=== PATIENT | female | born 1985 | race Caucasian/White ===

== ENCOUNTER → 2023-07-02 09:34 | Outpatient (BNVA) | payer OTHER, SELFPAY | PROVIDERS: PCP Internal Medicine; Visit Provider Physician Assistant Surgical ==

== ENCOUNTER 2023-08-02 10:55 | Outpatient (AMB) | payer OTHER, SELFPAY ==
--- NOTE | 2023-08-02 11:00 | MHC.OFFVISWM ---
Intake VS Expanded 08/02/23 11:16 BP 128/68 Blood Pressure Location Rt brachial Blood Pressure Position Sitting Pulse 63 Pulse Source Pulse Oximeter Temp 97.3 F Temperature Source Temporal Artery Scan Pulse Oximetry 97 Oxygen Delivery Method Room Air Height 5 ft 2 in Weight 287 lb 12.8 oz BMI 52.6 Body Fat % 45.8 Body Fat Mass 131.8 Fat Free Mass 155.8 Visceral Fat Rating 16.8 Body Water % 38.8 Body Water Mass 111.6 Muscle Mass/Score 148.0 Basal Metabolic Rate/Score 2,224 Intake Visit Reasons: (OV) [employer]PER[employer]OR BMI 52.7 SWL Allergies No Known Allergies Allergy (Verified 08/02/23 11:10) HPI HPI Comments History of Present Illness Details This is a 37 year old woman who is s/p GBP by Dr Alvarez in 2013 t [facility] – [place]. Pre op weight about 309 lowest weight before at 18 months post p was 250 lbs. No nausea, emesis if eats too much, no abd pain or relfulx. Feels restriction. Has been seeing RD and trying to lose weight over last 6 months without weight loss. Diagnosed with hypoglycemia - has periods of sweat , dizzyness and tingling around mouth 2-3 ties per week - mostly after sugar or carbs. Wants help to loose weight.Her goal is to weight less than 200 lbs. She lives with her and 3 children She works at [employer] – [place], some remotely some days, 9am = 3pm, M- F. She wakes at: 6am, bed at 12 MN Wants to use intermittent fasting - 9:30 - 6:30 pm Breakfast: coffee at 9:30 with 1% Lactaid milk and 2 tsp sugar 10am - 2 hb eggs, 1 -2 slice turkey collier Lunch: 12 pm - yogurt with fruit on bottom. 2 pm - 1.5 cup salad and half can of tuna or equivalent amt of chicken 4pm - cottage cheese - 1/2 cup 1% Dinner: 6pm - 1/2 c rice and beans with 4 oz? chicken - uses small plate After dinner: nothing Other snacks: as above Liquids: stopped soda and juice/sweetened drink 10 months ago Alcohol intake: none, tobacco:none, marijuana: none Exercise: has gym membership but can't go to childcare. walks with kids and dog Last mammogram: not yet Last pap smear: up to date control method: BTL KWABENA:3 ESS:1 GERD:0 QOL:84 PFSH Surgical History H/O tubal ligation History of cholecystectomy H/O kidney removal Gastric bypass status for obesity Family History Mother Kidney failure Diabetes Hypertension Congestive heart failure Father Brain aneurysm AIDS Son Diabetes Son Asthma Daughter No problems noted. 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 Physical Exam Const General: cooperative, no acute distress and well developed Nutritional Appearance: obese Orientation/consciousness: patient oriented x3 HEENT Head: Yes normal to inspection Neck Neck: Yes normal visual inspection Thyroid: Thyroid normal Resp Effort & Inspection: normal respiratory effort Auscultation: clear to auscultation bilaterally Cardio Rate: regular rate Rhythm: regular rhythm Heart sounds: S1 normal heart sound present, S2 normal heart sound present and no murmurs GI Inspection: No distended, Yes obesity and Yes scar (welll healed laparoscopic scars, left nephrectomy scar) Palpation (GI): Soft to palpation, nontender and no guarding Skin General skin exam: no rashes or lesions noted and other (warm and dry) Wounds: no wounds Hair: normal Neuro General: patient oriented x3 Extrem General: Yes no pedal edema and Yes no calf tenderness Psych Attitude: cooperative Thought process: Normal thought process present Thought content: Normal thought content present Insight: Good insight present (Psych) Judgement: Good judgement present (Psych) Assessment & Plan Assessment & Plan (1) Morbid obesity: Code(s): E66.01 - Morbid (severe) obesity due to excess calories Plan: This is a 37 yo woman with morbid boestiy s/p GBP in 2013. She wants to loose weight and is open to revision bariatric surgery. Blood work, h pylori , CXR, ECG, Abd ULS and UGI have been ordered. She is being scheduled for RD and BH initial consultations. She will start SWL classes and watch at 3 classes before her next appt with Susan. Will get OR report from [facility]. 1. Adequate sleep of 7-8 hours per night discussed - 10:30 - 6 am 2. Healthy meal plan - All meals/MR's need to take 20 -30 minutes minutes to complete coffee with 1% lactaid only 10 am - protein shake with water or UAM 2 pm - protein shake with water or UAM 6 pm- dinner of 8 forks lean protein, 8 forks vegetable, 1/2 serving fruit 8pm- half bar prn Exercise - treadmill 2d/ week at speed 3.0, incline 1- 7- to burn 300 calories LS 2 mile videos 3 d/week - 300 caloreis - goal 2000 cla/week The importance of avoiding and breast feeding for at least 18 months after bariatric surgery was discussed in the information session and was reinforced today. Has BTL. Pt will purchase body composition analyzer (recommended list given to patient) and weight herself weekly. Next appt with me in 3 weeks. Text me with any questions and weekly weights. Patient is morbidly obese and is not considered stable at this time.?I spent a total of 60 minutes reviewing/updating records, examining the patient and counseling the patient on weight management as detailed above. (2) Gastric bypass status for obesity: Comment: 2013 Code(s): Z98.84 - Bariatric surgery status (3) H/O partial nephrectomy: Comment: 2014 Code(s): Z90.5 - Acquired absence of kidney Orders: Orders Insulin Today E66.01 - Morbid (severe) obesity due to excess calories, Z01.818 - Encounter for other preprocedural examination, Z98.84 - Bariatric surgery status Lipid Panel Today E66.01 - Morbid (severe) obesity due to excess calories, Z01.818 - Encounter for other preprocedural examination, Z98.84 - Bariatric surgery status Complete Blood Count Auto Diff Today E66.01 - Morbid (severe) obesity due to excess calories, Z01.818 - Encounter for other preprocedural examination, Z98.84 - Bariatric surgery status Vitamin B12 and Folate Today E66.01 - Morbid (severe) obesity due to excess calories, Z01.818 - Encounter for other preprocedural examination, Z98.84 - Bariatric surgery status Vitamin A Today E66.01 - Morbid (severe) obesity due to excess calories, Z01.818 - Encounter for other preprocedural examination, Z98.84 - Bariatric surgery status Ferritin Today E66.01 - Morbid (severe) obesity due to excess calories, Z01.818 - Encounter for other preprocedural examination, Z98.84 - Bariatric surgery status Vitamin D 25-OH Total Today E66.01 - Morbid (severe) obesity due to excess calories, Z01.818 - Encounter for other preprocedural examination, Z98.84 - Bariatric surgery status US abdomen comp w elastography Today E66.01 - Morbid (severe) obesity due to excess calories, Z01.818 - Encounter for other preprocedural examination, Z98.84 - Bariatric surgery status XR chest 2V Today E66.01 - Morbid (severe) obesity due to excess calories, Z01.818 - Encounter for other preprocedural examination, Z98.84 - Bariatric surgery status FL upper GI w air Today E66.01 - Morbid (severe) obesity due to excess calories, Z01.818 - Encounter for other preprocedural examination, Z98.84 - Bariatric surgery status IRON PROFILE Today E66.01 - Morbid (severe) obesity due to excess calories, Z01.818 - Encounter for other preprocedural examination, Z98.84 - Bariatric surgery status Zinc Today E66.01 - Morbid (severe) obesity due to excess calories, Z01.818 - Encounter for other preprocedural examination, Z98.84 - Bariatric surgery status Comprehensive Met. Panel Today E66.01 - Morbid (severe) obesity due to excess calories, Z01.818 - Encounter for other preprocedural examination, Z98.84 - Bariatric surgery status Vitamin B1 Today E66.01 - Morbid (severe) obesity due to excess calories, Z01.818 - Encounter for other preprocedural examination, Z98.84 - Bariatric surgery status C Reactive Protein Today E66.01 - Morbid (severe) obesity due to excess calories, Z01.818 - Encounter for other preprocedural examination, Z98.84 - Bariatric surgery status PTHI Today E66.01 - Morbid (severe) obesity due to excess calories, Z01.818 - Encounter for other preprocedural examination, Z98.84 - Bariatric surgery status TSH reflex Free T4 Today E66.01 - Morbid (severe) obesity due to excess calories, Z01.818 - Encounter for other preprocedural examination, Z98.84 - Bariatric surgery status H Pylori Breath Test Today E66.01 - Morbid (severe) obesity due to excess calories, Z01.818 - Encounter for other preprocedural examination, Z98.84 - Bariatric surgery status Hemoglobin A1c Today E66.01 - Morbid (severe) obesity due to excess calories, Z01.818 - Encounter for other preprocedural examination, Z98.84 - Bariatric surgery status ECG 12 lead EKG Today E66.01 - Morbid (severe) obesity due to excess calories, Z01.818 - Encounter for other preprocedural examination, Z98.84 - Bariatric surgery status Referrals Nutrition/Dietitian Referral E66.01 - Morbid (severe) obesity due to excess calories, Z01.818 - Encounter for other preprocedural examination, Z98.84 - Bariatric surgery status Behavioral Health Referral E66.01 - Morbid (severe) obesity due to excess calories, Z01.818 - Encounter for other preprocedural examination, Z98.84 - Bariatric surgery status Coding Level of Care Code New Pt Level 5 (80100) Diagnoses Morbid obesity E66.01 Gastric bypass status for obesity Z98.84 H/O partial nephrectomy Z90.5
[2023-08-02 11:16] VITALS: BP 128/68; PULSE 63; TEMP 36.3; O2SAT 97; BMI 52.6
== END 2023-08-02 12:07 | disposition home or self-care (01) ==
PROVIDERS: PCP Internal Medicine; Visit Provider Physician Assistant
DX: E66.01 Morbid (severe) obesity due to excess calories (principal); Z68.43 Body mass index [BMI] 50.0-59.9, adult; Z98.84 Bariatric surgery status; Z90.5 Acquired absence of kidney
CPT/HCPCS: 99205

== ENCOUNTER → 2023-08-02 10:55 | Outpatient (BNVA) | payer OTHER, SELFPAY | PROVIDERS: PCP Internal Medicine; Visit Provider Physician Assistant | DX: E66.01 Morbid (severe) obesity due to excess calories (principal); Z98.84 Bariatric surgery status; Z90.5 Acquired absence of kidney; Z68.43 Body mass index [BMI] 50.0-59.9, adult | CPT/HCPCS: 99202 ==

== ENCOUNTER 2023-08-07 09:41 | Outpatient (REF) | payer OTHER, SELFPAY ==
--- NOTE | ~2023-08-07 | XR_ITS ---
EXAMINATION: XR CHEST CLINICAL INFORMATION: Obesity COMPARISON: 01/24/2018 TECHNIQUE: 2 views of the chest were obtained. FINDINGS: No significant abnormality is noted involving the heart, lungs, mediastinum, bony thorax or soft tissues. XR/XR chest 2V IMPRESSION: Unremarkable examination, no interval change.
--- NOTE | 2023-08-07 10:15 | ECG_ITS ---
Test Reason : morbid obesity Blood Pressure : / mmHG Vent. Rate : 060 BPM Atrial Rate : 060 BPM P-R Int : 186 ms QRS Dur : 104 ms QT Int : 428 ms P-R-T Axes : 051 057 023 degrees QTc Int : 428 ms Normal sinus rhythm Normal ECG When compared with ECG of 24-JAN-2018 12:18, No significant change was found Referred By: Angeles Alvarez Electronically Signed By:JOHN SANON MD
[2023-08-07 10:42] LABS: MANUAL DIFF FLAG NO
[2023-08-07 11:33] LABS: Basophils Percent Auto 0.2 % (0-2); Eosinophils Absolute Auto 0.5 X10*3/uL (0.0-0.4); Eosinophils Percent Auto 5.9 % (0-4); Hematocrit 41.6 % (37.0-47.0); Hemoglobin 13.5 g/dl (12.0-16.0); Imm Gran Abs Auto 0.02 X10*3/uL (0.00-0.03); Imm Gran Pct Auto 0.2 % (0.0-0.4); Lymphocytes Absolute Auto 2.1 X10*3/uL (1.2-4.9); Mean Corpuscular HGB Conc 32.5 g/dl (31.0-35.0); Mean Corpuscular Hemoglobin 27.2 pg (27.0-33.0); Mean Corpuscular Volume 83.9 fL (80.0-98.0); Mean Platelet Volume 11.1 fL (9.4-12.3); Monocytes Absolute Auto 0.7 X10*3/uL (0.1-1.2); Monocytes Percent Auto 8.5 % (2-11); Neutrophils Absolute Auto 5.3 x10*3/uL (2.0-8.3); Neutrophils Percent Auto 61.2 % (45-73); Platelet Count 366 X10*3/uL (160-400); Red Blood Count 4.96 X10*6/uL (4.20-5.50); Red Cell Distribution Width 13.8 % (11.0-16.0); White Blood Count 8.7 X10*3/uL (4.8-10.8)
[2023-08-07 11:36] LABS: Estimated Average Glucose 100 mg/dL; Hemoglobin A1c % 5.1 % (<6.0)
[2023-08-07 12:14] LABS: Alanine Aminotransferase 21 U/L (0-31); Alkaline Phosphatase 97 U/L (39-117); Anion Gap 11 (12-20); Aspartate Amino Transferase 20 U/L (5-31); Bilirubin Total 0.5 mg/dL (0.0-1.0); Blood Urea Nitrogen 11 mg/dL (9-16); C Reactive Protein 0.75 mg/dL (< or = 0.50); Carbon Dioxide 22 mmol/L (22-29); Chloride 109 mmol/L (96-108); Cholesterol 146 mg/dL (<200); Estimated Glomerular Filt Rate > 60; Glucose Random 92 mg/dL (60-115); HDL Cholesterol 28 mg/dL (>40); Iron 87 mcg/dL (30-160); LDL Cholesterol Calculated 89 mg/dL (<100); Percent Iron Saturation 32 % (15-50); Sodium 138 mmol/L (135-145); Total Iron Binding Capacity 273 mcg/dL (228-428); Total Protein 8.1 g/dL (6.5-8.0); Triglycerides 148 mg/dL (<150); Unsaturated Iron Binding 186 ug/dL
[2023-08-07 12:36] LABS: Folate 9.4 ng/mL (> or = 4.0); Vitamin B12 689 pg/mL (200-900)
[2023-08-07 12:49] LABS: Ferritin 102 ng/mL (10-122); TSH reflex Free T4 1.27 uIU/mL (0.32-4.0); Vitamin D 25-OH Total 18.1 ng/mL (>30)
[2023-08-07 13:31] LABS: Insulin 31 uU/mL (2-29)
[2023-08-08 18:13] LABS: Calcium (PTHI) 9.3 mg/dL (8.6-10.2); PTHI 97 pg/mL (16-77)
[2023-08-10 17:14] LABS: Zinc 71 mcg/dL (60-130)
[2023-08-12 12:21] LABS: H Pylori Breath Test Negative (Negative)
[2023-08-13 11:20] LABS: Vitamin A 25 mcg/dL (38-98); Vitamin B1 10 nmol/L (8-30)
== END 2023-08-07 09:42 | disposition home or self-care (01) ==
LOC: HO.XRAY 09:41
PROVIDERS: PCP Internal Medicine; Visit Provider Physician Assistant
DX: Z01.818 Encounter for other preprocedural examination (principal); E66.01 Morbid (severe) obesity due to excess calories; Z98.84 Bariatric surgery status; Z11.0 Encounter for screening for intestinal infectious diseases
CPT/HCPCS: 36415; 71046; 80053; 80061; 82306; 82607; 82728; 82746; 83013; 83036; 83525; 83540; 83970; 84425; 84443; 84590; 84630; 85025; 86140; 93005; 99211

== ENCOUNTER 2023-08-29 10:07 | Outpatient (REF) | payer OTHER, SELFPAY ==
--- NOTE | ~2023-08-29 | US_ITS ---
EXAMINATION: US COMPLETE ABDOMEN WITH LIVER ELASTOGRAPHY CLINICAL INFORMATION: Morbid obesity. COMPARISON: CT scan dated August 29, 2018. TECHNIQUE: Real-time imaging of the abdominal viscera. Noninvasive ultrasound liver fibrosis assessment is performed using Anabel ElastPQ point quantification shear wave elastography (2D-SWE) with a C5-2 MHz transducer. Multiple elastography samples are obtained. FINDINGS: PANCREAS: Head and body appear unremarkable. Tail not visualized. ABDOMINAL AORTA: The proximal, middle, and distal aortic segments are normal in caliber. INFERIOR VENA CAVA: Visualized portions are normal. LIVER: The liver demonstrates normal size, contour and echogenicity. No focal lesion or intrahepatic biliary duct dilatation. The right lobe measures 16.3 cm in length. The left lobe measures 13.4 cm in length. Portal flow is towards the liver (hepatopetal). Shear wave liver elastography median stiffness is 1.27 m/s (reference: normal median stiffness is 1.3 m/s or less). IQR/median stiffness to assess sampling precision is 0.06 (reference: good quality data set is IQR/median stiffness of 0.15 or less). GALLBLADDER: Not visualized, consistent with prior surgical removal. COMMON BILE DUCT: Normal in caliber measuring 0.3 cm in diameter. RIGHT KIDNEY: No hydronephrosis. 2.0 cm benign right upper pole simple renal cysts for which no further dedicated follow up imaging is indicated. No renal calculi or suspicious focal parenchymal lesion identified. The kidney measures 10.9 cm in maximum dimension. LEFT KIDNEY: No hydronephrosis. No renal calculi or focal parenchymal lesion identified. The kidney measures 10.2 cm in maximum dimension. SPLEEN: The spleen measures 11.8 cm in maximum dimension. FREE FLUID: None. US/US abdomen comp w elastography IMPRESSION: Liver elastography: In the absence of other known clinical signs, measurements rule out compensated advanced chronic liver disease. If there are known clinical signs, further testing may be needed for confirmation. Otherwise unremarkable study. REFERENCE: Society of Radiologists in Ultrasound Liver Stiffness Thresholds (2020): LIVER STIFFNESS THRESHOLDS: *Liver Stiffness equal or less than 1.3 m/s: High probability of being normal. *Liver Stiffness less than 1.7 m/s: In the absence of other known clinical signs, rules out compensated advanced chronic liver disease. *Liver Stiffness 1.7-2.1 m/s: Suggestive of compensated advanced chronic liver disease but need further test for confirmation. *Liver Stiffness over 2.1 m/s: Rules in compensated advanced chronic liver disease. *Liver Stiffness over 2.4 m/s: Suggestive of clinically significant portal hypertension. QUALITY OF DATA SET: *IQR/Median value equal or less than 0.15 implies a quality data set. *IQR/Median value over 0.15 implies a poor quality data set. OTHER CONSIDERATIONS: The stage of liver fibrosis may be overestimated in the setting of acute hepatitis, liver inflammation, elevated liver function tests, hepatic vascular congestion, obstructive cholestasis, non-fasting state, and infiltrative diseases such as amyloidosis and lymphoma. In some patients with NAFLD, the liver stiffness thresholds for compensated advanced chronic liver disease may be lower. In causes other than viral hepatitis and NAFLD, liver stiffness thresholds are not well established.
== END 2023-08-29 10:08 | disposition home or self-care (01) ==
LOC: HO.US 10:07
PROVIDERS: PCP Internal Medicine; Visit Provider Physician Assistant
DX: Z01.818 Encounter for other preprocedural examination (principal); E66.01 Morbid (severe) obesity due to excess calories; Z98.84 Bariatric surgery status
CPT/HCPCS: 76705; 76981

== ENCOUNTER 2023-08-31 14:50 | Outpatient (AMB) | payer OTHER, SELFPAY ==
--- NOTE | 2023-08-31 14:20 | MHC.AMNUTRGE ---
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 Noted high insulin levels. and she states hypoglycemia in the past but now improved. Question if hyhpoglycemia due to undereating vs reactive hypo. Saw 2 Endocrinologists ([place] and [place]) Saw Marcy Jj RD. she has done a CGM trial with endo, unable to get it approved through insurance. Gets bored with food easily, I prefer to not eat . I don't like food 10am-6pm eating window Using premier protein powders 2 scoops with water but strongly dislikes it.Also continuing with 2 meals , protein and vegetables only Previous weight loss methods attempted s/p GBP by Dr Alvarez in 2013 t [facility]. Pre op weight about 309 lowest weight before at 18 months post p was 250 lbs. No nausea, emesis if eats too much, no abd pain or relfulx. Feels restriction. Has been seeing RD and trying to lose weight over last 6 months without weight loss. Diagnosed with hypoglycemia - has periods of sweat , dizzyness and tingling around mouth 2-3 ties per week - mostly after sugar or carbs. Wants help to loose weight. Her goal is to weight less than 200 lbs. Dietary counseling reduction Who buys your food self Who prepares/cooks your food self Meal frequency regular: breakfast (hardboiled eggs with collier or turkey asausage or cottage cheese ) and dinner (salad (with oil and vinegar) and steak or chicken ) Diagnosis Nutrition problem #1 overweight/obesity As related to (etiology) #1 excess energy intake and physical inactivity As evidenced by (sign/symptom) #1 high BMI Monitoring/Goals Nutrition problem monitoring total energy intake, level of knowledge/skill, total PRO intake, weight and oral fluids Outcome progress progressing Learning/Education Readiness to learn excellent Stages of change action Most Recent Diabetes Results: Cholesterol 146 mg/dL (<200) 08/07/23 HDL Cholesterol 28 mg/dL (>40) L 08/07/23 Triglycerides 148 mg/dL (<150) 08/07/23 Creatinine 0.73 mg/dL (0.5-1.4) 08/07/23 Blood Urea Nitrogen 11 mg/dL (9-16) 08/07/23 Sodium 138 mmol/L (135-145) 08/07/23 Potassium 4.0 mmol/L (3.3-5.1) 08/07/23 Chloride 109 mmol/L (96-108) H 08/07/23 Carbon Dioxide 22 mmol/L (22-29) 08/07/23 Calcium 9.0 mg/dL (8.4-10.2) 08/07/23 AST 20 U/L (5-31) 08/07/23 ALT 21 U/L (0-31) 08/07/23 Total Protein 8.1 g/dL (6.5-8.0) H 08/07/23 Albumin 4.0 g/dL (3.5-5.0) 08/07/23 [facility] Surgical History (Updated 08/02/23 @ 13:15 by Nathaly Barrientos CMA) H/O partial nephrectomy H/O tubal ligation History of cholecystectomy Gastric bypass status for obesity Family History Mother Kidney failure Diabetes Hypertension Congestive heart failure Father Brain aneurysm AIDS Son Diabetes Son Asthma Daughter No problems noted. Social History Household Members: Spouse and Children Housing: House Alcohol intake: never Patient Tobacco Use Status: Never used Tobacco Current occupational status: employed Current occupation: [employer] Medical Assessment & Plan Assessment & Plan (1) Gastric bypass status for obesity: Comment: 2013 Code(s): Z98.84 - Bariatric surgery status (2) Morbid obesity: Code(s): E66.01 - Morbid (severe) obesity due to excess calories Plan plan has resulted in 10# weight loss and hypoglycemia much improved. Encouraged she continue on this track. will consider 2 week CGM trial. f/u with Angeles as scheduled Telehealth Telehealth Location of provider rendering services: practice address Location of patient: address on file Patient Identification confirmed using: Name, : Yes Telehealth method: video Patient verbally consented to treatment: Yes Patient verbally consented to billing insurance company: Yes Patient informed of any privacy concerns related to visit: Yes Minutes spent on Phone/Video with Pt.: 30 Coding Level of Care Code Nutr Indiv Intake (98835) Diagnoses Gastric bypass status for obesity Z98.84 Morbid obesity E66.01 Time Spent (min) 30
[2023-08-31 14:50] VITALS: BMI 50.7
== END 2023-08-31 14:50 | disposition home or self-care (01) ==
LOC: HO.HBS 14:50
PROVIDERS: PCP Internal Medicine; Visit Provider Dietitian, Registered
DX: Z98.84 Bariatric surgery status (principal); E66.01 Morbid (severe) obesity due to excess calories

== ENCOUNTER → 2023-08-31 14:50 | Outpatient (BNVA) | payer OTHER, SELFPAY | PROVIDERS: PCP Internal Medicine; Visit Provider Dietitian, Registered | DX: E66.01 Morbid (severe) obesity due to excess calories (principal); Z98.84 Bariatric surgery status; Z68.43 Body mass index [BMI] 50.0-59.9, adult | CPT/HCPCS: 97802 ==

== ENCOUNTER 2023-09-17 12:00 | Outpatient (AMB) | payer OTHER, SELFPAY ==
--- NOTE | 2023-09-17 12:13 | A.OFFWM_ITS ---
Intake Intake Visit Reasons: VIDEO BH Intake Allergies No Known Allergies Allergy (Verified 08/02/23 11:10) [facility] Surgical History (Updated 08/02/23 @ 13:15 by Nathaly Barrientos CMA) H/O partial nephrectomy H/O tubal ligation History of cholecystectomy Gastric bypass status for obesity Family History Mother Kidney failure Diabetes Hypertension Congestive heart failure Father Brain aneurysm AIDS Son Diabetes Son Asthma Daughter No problems noted. Social History Household Members: Spouse and Children Housing: House Alcohol intake: never Patient Tobacco Use Status: Never used Tobacco Current occupational status: employed Current occupation: [employer] Behavioral Health Assessment Weight Management Therapy Therapy Notes Details Pt is is a years old, who presents for initial behavioral health assessment as part of surgical weight-loss program. PT is interested in a revision surgery as she previously had bariatric surgery in 2013. Pt states she was able to loss 75Lbs but after having 3 children her lifestyle has changed; she hopes for a healthy and active life and hopes this program can support her with sustained, long-term changes. PT denied any history of mental health treatment and or past hospitalization/crisis for behavioral health. Denies any safety concerns around SI and/or self-other harm, also there is no history of substance use reported. There is also no evidence for stress/emotional-eating, and scores from BES suggest minimal risk for binge eating behavior. PHQ- scores also showed no active symptoms/concerns with depression. Mental status exam is withing normal limits, suggesting person's functioning is not impaired. At this time patient is cleared from the behavioral health standpoint. Presenting Concerns Referral Source P Provider, Pt sees ED. Reason for referral Completion of behavioral health assessment as part of process for weight-loss surgery. Precipitating Event Weight gain. Living Situation Current Living Situation Own At risk of losing current housing? No Satisfied with current living situation? Yes Comments Pt lives with and 3 children. Food/Weight/Diet Expectations of change Pt want to be healthy and active. She wants to enjoy things with her children. The initial goal is to lose around 23 lbs before revision. Her target goal is about 180 lbs. History/Relationship with food Pt reports she was eating 2-3 meals a day. She's still not able to have regular-sized meals. However, before starting the program she was not eating as much protein and, at times was skipping meals all day and then at night was snacking. Denies any emotional eating concerns. History/Relationship with weight PT reports she has always been overweight. The lowest weight in the past 10 years was 232 lbs. Never been under 200 lbs. PT reports she is very busy and lives a fast-paced life which leads her to snacks thought the day rather than having steady meals. Recently she has been working on lifestyle adjustments and behavioral changes to impact her eating and weight. History/Relationship with dieting Bariatric surgery in 2013. Lost 75 lbs, then after having 3 kids she has gained all the weight back. Intermittent fasting. Binge Eating Do you frequently eat large amounts of food in short periods of time, not feeling physically hungry? No Do you feel out of control when you eat a large amount of food in a short period of time? No Do you eat large amounts of food rapidly and typically alone? No Night Eating Do you wake up at least once during the night to eat? No If you wake up in the night, do you find that it is necessary to eat something in order to fall back asleep? No Do you have little or no appetite in the morning and feel very hungry in the evening, often overeating between dinner and when you go to bed? Yes Social History Family history and relationship 9 years ago. Pt has 2 brothers, mom alive, dad . Pt states good family dynamics. Parental/Familial camp tender obligations 7 y/o boy, 6y/o boy and 3y/o girl. Developmental history and status None. Currently WNL. Social support . Community support None. Jehovah'S Witness/Spirituality Jehovah'S Witness. Cultural/Ethnic information . [place]. Legal Involvement and History Current or historical involvement with the legal system? None reported. Education Highest grade completed Some college. Currently enrolled in educational program? No Interested in further educational program? Yes Educational Interests/Skills Wants to finish her nursing degree. 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 ) Wants help to find employment? No Meaningful activities Family activities. Financial Situation Describe current financial situation Comfortable Financial assistance? [place] and SSI (from oldest son.) Service Service? No Mental Health and Addiction Treatment Current/Past substance abuse? No Current/Past addictive behavior concerns? No Psychiatric history Never in treatment. Denies any inpatient or crisis. No SI/Sa and or other safety concerns reported. Medical and Physical Health Summary Additional Medical History not covered in history None reported Sexual History concerns None reported. Physical exam in the last year? Yes Pain Screening Current pain? No Pain in the last few months? No Medications Is the patient compliant with medications? Not applicable Does the patient have [place] Guardian in place? Not applicable Does the patient use complimentary health approaches? No Trauma/Abuse History History of trauma? No Questionnaires PHQ-9 Over the last 2 weeks, how often have you been bothered by any of the following problems? 1. Little interest or pleasure in doing things: not at all 2. Feeling down, depressed, or hopeless: not at all 3. Trouble falling or staying asleep, or sleeping too much: not at all 4. Feeling tired or having little energy: not at all 5. Poor appetite or overeating: not at all 6. Feeling bad about yourself - or that you are a failure or have let yourself or your family down: not at all 7. Trouble concentrating on things, such as reading the newspaper or watching television: not at all 8. Moving or speaking so slowly that other people could have noticed. Or the opposite - being so fidgety or restless that you have been moving around a lot more than usual: not at all 9. Thoughts that you would be better off or of hurting yourself in some way: not at all Total score: 0 Depression Screening Interpretation: Negative (Initial PHQ-9 done at intake was 4.) Depression Screening Done: Yes 38029 - PHQ-9 Billing: Yes Source: Developed by Drs. Terry Phipps, Silva Medrano, Colt Zhu and colleagues, with an educational sarah from [employer]. Binge Eating Scale Group 1 A. I don't feel self-conscious about my wt. or body size when I'm with others. B. I feel concerned about how I look to others, but it normally does not make me fell disappointed with myself C. I do get self-conscious about my appearance and wt. which makes me feel disappointed in myself. D. I feel very self-conscious about my wt. and frequently I feel intense shame and disgust for myself. I try to avoid social contacts because of my self- consciousness. Response Group 1: C Group 2 A. I don't have any difficulty eating slowly in the proper manner. B. Although I seem to gobble down foods, I don't end up feeling stuffed because of eating to much. C. At times, I tend to eat quickly and then, I feel uncomfortably full afterwards. D. I have the habit of bolting down my food, without really chewing it. When t his happens I usually feel uncomfortably stuffed because I've eaten to much. Response Group 2: A Group 3 A. I feel capable to control my eating urges when I want to. B. I feel like I have failed to control my eating more than the average person. C. I feel utterly helpless when it comes to feeling in control of my eating urges. D. Because I feel so helpless about controlling my eating I have become very desperate about trying to get control. Response Group 3: A Group 4 A. I don't have the habit of eating when I'm bored. B. I sometimes eat when I'm bored, but often I'm able to get busy and get my mind off food. C. I have a regular habit of eating when I'm bored, but occasionally, I can use some other activity to get my mind off eating. D. I have a strong habit of eating when I'm bored. Nothing seems to help me breath the habit. Response Group 4: A Group 5 A. I'm usually physically hungry when I eat something. B. Occasionally, I eat something on impulse even though I really am not hungry. C. I have the regular habit of eating foods, that I might not really enjoy, to satisfy a hungry feeling even though physically, I don't need the food. D. Although I'm not physically hungry, I get a hungry feeling in my mouth that only seems to be satisfied when I eat a food, like sandwich, that fills my mouth. Sometimes, when I eat the food to satisfy my mouth hunger, I then spit the food out so I won't gain weight. Response Group 5: A Group 6 A. I don't feel any guilt or self-hate after I overeat. B. After I overeat, occasionally I feel guilt or self-hate. C. Almost all the time I experience strong guilt or self-hate after I overeat. Response Group 6: B Group 7 A. I don't lose total control of my eating when dieting even after periods when I overeat. B. Sometimes when I eat a forbidden food on a diet, I feel like I blew it and eat even more. C. Frequently, I have the habit of saying to myself, I've blown it now, why not go all the way, when I overeat on a diet. When that happens I eat more. D. I have a regular habit of starting a strict diets for myself but I break the diets by going on an eating binge. My life seems to be either a feast or famine. Response Group 7: A Group 8 A. I rarely eat so much food that I feel uncomfortably stuffed afterwards. B. Usually about once a month, I each such a quantity of food, I end up feeling very stuffed. C. I have regular periods during the month when I eat large amounts of food, either at mealtime or at snacks. D. I eat so much food that I regularly feel quite uncomfortable after eating and sometimes a bit nauseous. Response Group 8: A Group 9 A. My level of calorie intake does not go up very high or go down very low on a regular basis. B. Sometimes after I overeat, I will try to reduce my caloric intake to almost nothing to compensate for the excess calories I've eaten. C. I have a regular habit of overeating during the night. It seems that my routine is not to be hungry in the morning but overeat in the evening. D. In my adult years, I have had week-long periods where I practically starve myself. This follows periods when I overeat. It seems I live a life of either feast or famine. Response Group 9: A Group 10 A. I usually am able to stop eating when I want to. I know when enough is enough. B. Every so often, I experience a compulsion to eat which I can't seem to control. C. Frequently, I experience strong urges to eat which I seem unable to control, but at other times I can control my eating urges. D. I feel incapable of controlling urges to eat. I have a fear of not being able to stop eating voluntarily. Response Group 10: A Group 11 A. I don't have any problem stopping eating when I feel full. B. I usually can stop eating when I feel full but occasionally overeat leaving me feeling uncomfortably stuffed. C. I have a problem stopping eating once I start and usually I feel uncomfortably stuffed after I eat a meal. D. Because I have a problem not being able to stop eating when I want, I sometimes have to induce vomiting to relieve my stuffed feeling. Response Group 11: A Group 12 A. I seem to eat just as much when I'm with others, Family social gatherings as when I'm by myself. B. Sometimes, when I'm with other persons, I don't eat as much as I want to eat because I'm self-conscious about my eating. C. Frequently, I eat only a small amount of food when others are present, because I'm very embarrassed about my eating. D. I feel so ashamed about overeating that I pick times to overeat when I know no one will see me. I feel like a closet eater. Response Group 12: A Group 13 A. I eat three meals a day with only an occasional between meal snack. B. I eat 3 meals a day, but I also normally snack between meals. C. When I am snacking heavily, I get in the habit of skipping regular meals. D. There are regular periods when I seem to be continually eating, with no planned meals. Response Group 13: A Group 14 A. I don't think much about trying to control unwanted eating urges. B. At least some of the time, I feel my thoughts are pre-occupied with trying to control my eating urges. C. I feel that frequently I spend much time thinking about how much I ate or about trying not to eat anymore. D. It seems to me that most of my waking hours are pre-occupied by thoughts about eating or not eating. I feel like I'm constantly struggling not to eat. Response Group 14: A Group 15 A. I don't think about food a great deal. B. I have strong craving for food but they last only for brief periods of time. C. I have days when I can't seem to think about anything else but food. D. Most of my days seem to be pre-occupied with thoughts about food. I feel like I live to eat. Response Group 15: A Group 16 A. I usually know whether or not I'm physically hungry. I take the right portion of food to satisfy me. B. Occasionally, I feel uncertain about knowing whether or not I'm physically hungry. A these times it's hard to know how much food I should take to satisfy me. C. Even though I might know how many calories I should eat, I don't have any idea what is a normal amount of food for me. Response Group 16: A Binge Eating Score: 3 Score less than 17 Minimal Risk Score between 18-26 Moderate Risk Score between 27-46 High Risk Assessment & Plan Assessment & Plan (1) Adjustment disorder: Code(s): F43.20 - Adjustment disorder, unspecified Qualifiers: Adjustment disorder type: with conduct disturbance Qualified Code(s): F43.24 - Adjustment disorder with disturbance of conduct Plan After completing the assessment and comparing scores from Binge eating scale and PHQ9, at this time, this financial underwriter has no concerns about patient's mental status. Client is cleared and there is no need for follow up. Clinician has advised client about available resources if ever in need to access additional support and has encourage client to participate in post-op groups. Telehealth Telehealth Location of provider rendering services: other Location of patient: other Patient Identification confirmed using: Name, : Yes Telehealth method: video Patient verbally consented to treatment: Yes Patient verbally consented to billing insurance company: Yes Patient informed of any privacy concerns related to visit: No Minutes spent on Phone/Video with Pt.: 50 Coding Level of Care Code New Pt Tele Psy Diag Antoniaal ([id number]) Patient Type New Diagnoses Adjustment disorder with disturbance of conduct F43.24 Adjustment disorder type: with conduct disturbance Time Spent (min) 50
== END 2023-09-17 13:00 | disposition home or self-care (01) ==
LOC: HO.HBST 13:01
PROVIDERS: PCP Internal Medicine; Visit Provider Counselor Mental Health
DX: F43.24 Adjustment disorder with disturbance of conduct (principal)
CPT/HCPCS: 90791

== ENCOUNTER → 2023-09-17 12:00 | Outpatient (BNVA) | payer OTHER, SELFPAY | PROVIDERS: PCP Internal Medicine; Visit Provider Counselor Mental Health ==

== ENCOUNTER 2023-09-19 09:20 | Outpatient (AMB) | payer OTHER, SELFPAY ==
--- NOTE | 2023-09-19 09:05 | MHC.OFFVISWM ---
Intake VS Expanded 09/19/23 09:16 Height 5 ft 2 in Weight 266 lb 3 oz BMI 48.7 Intake Visit Reasons: VIDEO F/U SWL Allergies No Known Allergies Allergy (Verified 08/02/23 11:10) HPI HPI Comments History of Present Illness Details This is the patients second appt for revision of previous GBP. . Starting weight was 287.8 lbs on 08/02/23. TBWL is 21.5 lbs or 7.5 % TBWL. Meal plan: 10am - Premier powder with UAM 2pm - 5 forks salad with 4 forks protein mostly 5pm - same shake Does not like bars - can not tolerate Premier bars Exercise plan: 5 d/ gym/week. speed 3.0, incline ?, 750 calories yesterday - normally 400 caloreis. Pre op work up completed as follows: SWL classes - appts - cleared RD appts - seen once, needs follow up H pylori - negative Labs - Vit A and D CXR and ECG - both normal ULS - R 16.3, R 13.4 - hepatomegaly UGI - 09/21 Contraception-tubal ligation [facility] Surgical History (Updated 08/02/23 @ 13:15 by Nathaly Barrientos CMA) H/O partial nephrectomy H/O tubal ligation History of cholecystectomy Gastric bypass status for obesity Family History Mother Kidney failure Diabetes Hypertension Congestive heart failure Father Brain aneurysm AIDS Son Diabetes Son Asthma Daughter No problems noted. Social History Household Members: Spouse and Children Housing: House Alcohol intake: never Patient Tobacco Use Status: Never used Tobacco Current occupational status: employed Current occupation: [employer] Medical Assessment & Plan Assessment & Plan (1) Morbid obesity: Code(s): E66.01 - Morbid (severe) obesity due to excess calories Plan: Doing great with 21 lbs or 7.5% TBWL. Changes - needs to find a bar that she likes - will try Celebrate and Zone bars. Needs to send me weights electronically weekly Needs to finish all SWL classes before next appt with Susan Continue to increase intenstiy of treadmill and burn a>2, 000 calories per week. Next appt with me in 3 weeks, will need EGD with Dr Cohen Will notify [place] now. Patient is still morbidly obese and is not considered stable at this time. I spent 25 minutes in total speaking with the patient via video conference counseling , reviewing records and charting in patients chart. . (2) Gastric bypass status for obesity: Comment: 2013 Code(s): Z98.84 - Bariatric surgery status Plan see above Telehealth Telehealth Location of provider rendering services: practice address Location of patient: address on file Patient Identification confirmed using: Name, : Yes Telehealth method: video Patient verbally consented to treatment: Yes Patient verbally consented to billing insurance company: Yes Patient informed of any privacy concerns related to visit: Yes Coding Level of Care Code Tele Est Pt Level 4 (77989) Diagnoses Morbid obesity E66.01 Gastric bypass status for obesity Z98.84
[2023-09-19 09:16] VITALS: BMI 48.7
== END 2023-09-19 09:24 | disposition home or self-care (01) ==
LOC: HO.HBS 09:20
PROVIDERS: PCP Internal Medicine; Visit Provider Physician Assistant
DX: E66.01 Morbid (severe) obesity due to excess calories (principal); Z98.84 Bariatric surgery status
CPT/HCPCS: 99214

== ENCOUNTER → 2023-09-19 09:20 | Outpatient (BNVA) | payer OTHER, SELFPAY | PROVIDERS: PCP Internal Medicine; Visit Provider Physician Assistant ==

== ENCOUNTER 2023-09-21 09:36 | Outpatient (REF) | payer OTHER, SELFPAY ==
--- NOTE | ~2023-09-21 | FL_ITS ---
EXAMINATION: XR FLUOROSCOPY UPPER GI WITH AIR CLINICAL INFORMATION: Status post gastric bypass in 2014. Weight gain COMPARISON: None TECHNIQUE: Fluoroscopic air contrast upper GI examination was performed utilizing standard techniques with thin and thick barium and effervescent granules. Numerous spot images were obtained. FINDINGS: Dual and single contrast images of the esophagus demonstrate normal caliber, contour, and mucosal pattern. No evidence of stricture, mass, or ulcerations identified. Esophageal peristalsis was normal. A very small type I hiatal hernia is present. Gastroesophageal reflux is seen up to the distal esophagus. Dual contrast and single contrast images of the stomach demonstrated postsurgical changes consistent with prior Kathy-en-Y gastric bypass. There is a small blind pouch of the Kathy limb present adjacent to the gastrojejunostomy anastomosis. Mucosal pattern is unremarkable with no evidence of mass, ulceration, or other abnormality. Contrast freely passed into the Kathy limb. Single and air-contrast images of the duodenal bulb demonstrate no abnormality. The duodenal sweep has a normal appearance, course, and mucosal fold appearance. The imaged proximal jejunum has a normal fold pattern and caliber. FLUOROSCOPY TIME: 3 minutes 6 seconds Number of Spot Images: 14 Number of Cine: 4 DOSE AREA PRODUCT: [id number] uGy-m2 (microgray-meter squared) FL/FL upper GI w air IMPRESSION: 1. Small type I hiatal hernia. 2. Mild gastroesophageal reflux 3. Postoperative changes consistent with prior history of gastric bypass. 4. A small blind pouch of Kathy limb is present adjacent to the gastrojejunostomy anastomosis. This procedure was performed by Yoan Gilbert PA-C, and supervised by Dr. Lynn
== END 2023-09-21 09:37 | disposition home or self-care (01) ==
LOC: HO.XRAY 09:36
PROVIDERS: PCP Internal Medicine; Visit Provider Physician Assistant
DX: Z01.818 Encounter for other preprocedural examination (principal); E66.01 Morbid (severe) obesity due to excess calories; Z98.84 Bariatric surgery status
CPT/HCPCS: 74246

== ENCOUNTER → 2023-09-21 09:39 | Outpatient (BNV) | payer OTHER, SELFPAY | PROVIDERS: PCP Internal Medicine; Visit Provider Radiology Diagnostic Radiology | DX: Z01.818 Encounter for other preprocedural examination (principal); E66.01 Morbid (severe) obesity due to excess calories | CPT/HCPCS: 74246 ==

== ENCOUNTER 2023-10-03 15:19 | Outpatient (AMB) | payer OTHER, SELFPAY ==
--- NOTE | 2023-10-03 15:14 | MHC.AMNUTRGE ---
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 just restarting her plan per program protocol SWL online classes: completed Previous weight loss methods attempted s/p GBP by Dr Alvarez in 2014 t [facility]. Pre op weight about 309 lowest weight before at 18 months post p was 250 lbs. No nausea, emesis if eats too much, no abd pain or relfulx. Feels restriction. Has been seeing RD and trying to lose weight over last 6 months without weight loss. Diagnosed with hypoglycemia - has periods of sweat , dizzyness and tingling around mouth 2-3 ties per week - mostly after sugar or carbs. Wants help to loose weight. Her goal is to weight less than 200 lbs. Diagnosis Nutrition problem #1 overweight/obesity As related to (etiology) #1 excess energy intake and physical inactivity As evidenced by (sign/symptom) #1 high BMI Monitoring/Goals Nutrition problem monitoring total energy intake, level of knowledge/skill, total PRO intake, weight and oral fluids Outcome progress progressing Learning/Education Readiness to learn excellent Stages of change action Most Recent Diabetes Results: Cholesterol 146 mg/dL (<200) 08/07/23 HDL Cholesterol 28 mg/dL (>40) L 08/07/23 Triglycerides 148 mg/dL (<150) 08/07/23 Creatinine 0.73 mg/dL (0.5-1.4) 08/07/23 Blood Urea Nitrogen 11 mg/dL (9-16) 08/07/23 Sodium 138 mmol/L (135-145) 08/07/23 Potassium 4.0 mmol/L (3.3-5.1) 08/07/23 Chloride 109 mmol/L (96-108) H 08/07/23 Carbon Dioxide 22 mmol/L (22-29) 08/07/23 Calcium 9.0 mg/dL (8.4-10.2) 08/07/23 AST 20 U/L (5-31) 08/07/23 ALT 21 U/L (0-31) 08/07/23 Total Protein 8.1 g/dL (6.5-8.0) H 08/07/23 Albumin 4.0 g/dL (3.5-5.0) 08/07/23 [facility] Surgical History (Updated 08/02/23 @ 13:15 by Nathayl Barrientos CMA) H/O partial nephrectomy H/O tubal ligation History of cholecystectomy Gastric bypass status for obesity Family History Mother Kidney failure Diabetes Hypertension Congestive heart failure Father Brain aneurysm AIDS Son Diabetes Son Asthma Daughter No problems noted. Social History Household Members: Spouse and Children Housing: House Alcohol intake: never Patient Tobacco Use Status: Never used Tobacco Current occupational status: employed Current occupation: [employer] Medical Assessment & Plan Assessment & Plan (1) Morbid obesity: Code(s): E66.01 - Morbid (severe) obesity due to excess calories Plan Patient is cleared from a nutrition standpoint for bariatric surgery. Educational requirements have been completed. Reviewed vitamin supplementation and commitment to protein shake for several months post surgery. Encouraged communication with office as needed Telehealth Telehealth Location of provider rendering services: practice address Location of patient: address on file Patient Identification confirmed using: Name, : Yes Telehealth method: voice only Patient verbally consented to treatment: Yes Patient verbally consented to billing insurance company: Yes Patient informed of any privacy concerns related to visit: Yes Minutes spent on Phone/Video with Pt.: 10 Coding Level of Care Code Nutr Indiv Subseq ([id number]) Diagnoses Morbid obesity E66.01 Time Spent (min) 10
== END 2023-10-03 15:24 | disposition home or self-care (01) ==
LOC: HO.HBS 15:19
PROVIDERS: PCP Internal Medicine; Visit Provider Dietitian, Registered
DX: E66.01 Morbid (severe) obesity due to excess calories (principal)

== ENCOUNTER → 2023-10-03 15:19 | Outpatient (BNVA) | payer OTHER, SELFPAY | PROVIDERS: PCP Internal Medicine; Visit Provider Dietitian, Registered | DX: E66.01 Morbid (severe) obesity due to excess calories (principal) | CPT/HCPCS: 97803 ==

== ENCOUNTER 2023-10-08 15:12 | Outpatient (AMB) | payer OTHER, SELFPAY ==
--- NOTE | 2023-10-08 13:00 | A.OFFVIS_ITS ---
Intake VS Expanded 10/08/23 15:06 Height 5 ft 2 in Weight 274 lb 9 oz BMI 50.2 Intake Visit Reasons: (TV) F/U SWL Allergies No Known Allergies Allergy (Verified 08/02/23 11:10) HPI HPI Comments History of Present Illness Details SWL follow up for revision of previous GB. OR records received from [facility] and scanned into her chart. 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 Was sick with her kids (for 2 weeks)and now restarted her mealplan and exercise again this week. 10:30 - Premier powder with UAM 2:30 pm - meal of 6 forks of protein and 6 forks of vegetables - then gets full and stops 6pm - another shake 8pm - bar Exercise - 5d/week, 3 Alternates and 30 and 45 minutes - , 350 - 450 calories Pre op work up completed as follows: SWL classes - 05/08 BH appts - cleared RD appts - cleared H pylori - negative Labs - Vit A and D CXR and ECG - both normal ULS - R 16.3, R 13.4 - hepatomegaly UGI - IMPRESSION: 1. Small type I hiatal hernia. 2. Mild gastroesophageal reflux 3. Postoperative changes consistent with prior history of gastric bypass. 4. A small blind pouch of Kathy limb is p resent adjacent to the gastrojejunostomy anastomosis. EGD scheduled for 10/17/[address] Noel [place]-tubal ligation [facility] Surgical History (Updated 08/02/23 @ 13:15 by Nathaly Barrientos CMA) H/O partial nephrectomy H/O tubal ligation History of cholecystectomy Gastric bypass status for obesity Family History Mother Kidney failure Diabetes Hypertension Congestive heart failure Father Brain aneurysm AIDS Son Diabetes Son Asthma Daughter No problems noted. Social History Household Members: Spouse and Children Housing: House Alcohol intake: never Patient Tobacco Use Status: Never used Tobacco Current occupational status: employed Current occupation: [employer] Medical Assessment & Plan Assessment & Plan (1) Morbid obesity: Code(s): E66.01 - Morbid (severe) obesity due to excess calories Plan: Pre op work up for revision of GBP is complete, she has gained some weight while she and her children were sick with the flu, but now is back on track. Continue present meal plan Exercise - now increase to 3 d 450 calories and 2 d 350 calories, then increase to 450 cla all5 d over next 2 weeks. She will continue to send me her weights weekly, EGD next week. Next appt with me in 3 weeks. Patient is still morbidly obese and is not considered stable at this time. I spent 25 minutes in total speaking with the patient via video conference counseling , reviewing records and charting in patients chart. . (2) Gastric bypass status for obesity: Comment: 2013 Code(s): Z98.84 - Bariatric surgery status Plan: see above Telehealth Telehealth Location of provider rendering services: practice address Location of patient: address on file Patient Identification confirmed using: Name, : Yes Telehealth method: video Patient verbally consented to treatment: Yes Patient verbally consented to billing insurance company: Yes Patient informed of any privacy concerns related to visit: Yes Coding Level of Care Code Tele Est Pt Level 4 (44948) Diagnoses Morbid obesity E66.01 Gastric bypass status for obesity Z98.84
[2023-10-08 15:06] VITALS: BMI 50.2
== END 2023-10-08 15:15 | disposition home or self-care (01) ==
LOC: HO.HBS 15:12
PROVIDERS: PCP Internal Medicine; Visit Provider Physician Assistant
DX: E66.01 Morbid (severe) obesity due to excess calories (principal); Z98.84 Bariatric surgery status
CPT/HCPCS: 99214

== ENCOUNTER → 2023-10-08 15:12 | Outpatient (BNVA) | payer OTHER, SELFPAY | PROVIDERS: PCP Internal Medicine; Visit Provider Physician Assistant ==

== ENCOUNTER 2023-10-17 11:24 | Day surgery (SDC) | payer OTHER, SELFPAY ==
--- NOTE | 2023-10-12 23:45 | MHC.SHP ---
Pre-Procedural Eval Section A Date of Service: 10/12/23 The patient is an INPATIENT: No The History & Physical has been completed within 30 days and I have reviewed it.: Yes Section B Chief Complaint: Bariatric surgery status Details of Present Illness: abdominal pain Relevant Family History (Specify if Yes): No Relevant Social History: None Present Medications: None Medical History: No relevant PMH History of Previous Operations: Relevant previous surgery/procedure and date(s) (laparoscopic gastric bypass) Allergies: Allergies Allergy/AdvReac Type Severity Reaction Status Date / Time No Known Allergies Allergy Verified 08/02/23 11:10 Review of Systems Sugical H&P ROS: Negative: Constitution, Cardiovascular, Respiratory, Neurological, Psychiatric, Hem-Onc, Allergic/Immunologic, Gastrointestinal, Genitourinary, Musculoskeletal, Integumentary, Endocrine and Eyes/Ears/Nose/Throat Exam Surgical H&P Exam: Normal: HEENT, Normal: Heart, Normal: Lungs, Normal: Extremities, Normal: Abdomen, Normal: Skin and Normal: Neurological Plan Diagnosis/Plan: Unchanged (EGD to assess for abdominal pain. Risks for perforation and bleeding were discussed with patient. She is in agreement with the plan) I have reviewed the history and physical and performed a pertinent physical examination on my patient. No changes have occurred unless specified. Time Spent With Patient Time: Total time managing care of this patient today ____ minutes.
[2023-10-15 11:40] VITALS: BMI 50.2
--- NOTE | 2023-10-15 12:16 | HO.ANESPROP2 ---
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 Surgical History Surgical History (Updated 10/17/23 @ 12:06 by Danita Bhat MD) H/O partial nephrectomy H/O tubal ligation History of cholecystectomy Gastric bypass status for obesity Social History Social History Household Members: Spouse and Children Housing: House Alcohol intake: never Patient Tobacco Use Status: Never used Tobacco Use of substances other than those prescribed or required for medical reasons: No Are you DNR?: No Advance Directives: No Advance Directives Information Provided: Yes Current occupational status: employed Current occupation: [employer] Allergies Allergy/AdvReac Type Severity Reaction Status Date / Time No Known Allergies Allergy Verified 08/02/23 11:10 Exam Height,Weight and Vital Signs: Height 5 ft 2 in Weight 124.539 kg Pertinent Lab Results Pertinent Lab Results: Laboratory Tests 08/07/23 10:40 WBC 8.7 Hgb 13.5 Hct 41.6 Plt Count 366 Sodium 138 Potassium 4.0 Chloride 109 H Carbon Dioxide 22 BUN 11 Creatinine 0.73 Narrative Narrative: EKG 08/2023 Vent. Rate : 060 BPM Atrial Rate : 060 BPM P-R Int : 186 ms QRS Dur : 104 ms QT Int : 428 ms P-R-T Axes : 051 057 023 degrees QTc Int : 428 ms Normal sinus rhythm Normal ECG When compared with ECG of 24-JAN-2018 12:18, No significant change was found Assessment and Plan Assessment Anesthesia Assessment: Chart Reviewed Documented by User: Danita Bhat MD 10/17/23 12:28 PMFSH Active Problems Active Problems: All Active Problems (Updated 10/17/23 @ 11:58 by Danita Bhat) Pre-op evaluation (Acute) Morbid obesity (Acute) BMI 51.6 H/O partial nephrectomy (Acute) Gastric bypass status for obesity (Acute) 2013 [facility] Denies CARRI Past Medical History Medical History Hiatal hernia GERD (gastroesophageal reflux disease) Morbid obesity Family History Family History Mother Kidney failure Diabetes Hypertension Congestive heart failure Father Brain aneurysm AIDS Son Diabetes Son Asthma Daughter No problems noted. Family history of problems with anesthesia: No Surgical History Surgical History (Updated 10/17/23 @ 12:06 by Danita Bhat MD) H/O partial nephrectomy H/O tubal ligation History of cholecystectomy Gastric bypass status for obesity History of Problems with Anesthesia: No Social History Social History Household Members: Spouse and Children Housing: House Alcohol intake: never Patient Tobacco Use Status: Never used Tobacco Use of substances other than those prescribed or required for medical reasons: No Are you DNR?: No Advance Directives: No Advance Directives Information Provided: Yes Current occupational status: employed Current occupation: [employer] Allergies Allergy/AdvReac Type Severity Reaction Status Date / Time No Known Allergies Allergy Verified 08/02/23 11:10 Exam Height,Weight and Vital Signs: Height 5 ft 2 in Weight 124.539 kg Vital Signs Temp Pulse Resp BP Pulse Ox O2 Del Method 10/17/23 12:03 97.5 F 61 16 119/71 98 Room Air Airway Mallampati Class: II TM Dist: >3cm Neck ROM: Full Loose/Missing/Broken Teeth: No Heart: RRR Lungs: CTAB Assessment and Plan Assessment Anesthesia Assessment: Anesthesia Plan Discussed Final Anesthetic Review Family History of Problems with Anesthesia: No History of Problems with Anesthesia: No NPO: Yes ASA Class: III Final Preanesthetic Review: No Changes in Pt Med Stat, Meds/Allgs Chart Reviewed, Consent Obtained/Reviewed and Anes Risks/Benef Reviewed Patient Risk: Intermediate Procedure Risk: Low Assessment/Block/Sedation in SS: Assess/Block/Sedation-SS Anesthetic Plan Anesthetic Plan: TIVA Disposition: Standard PACU
[2023-10-17 11:46] VITALS: BMI 51.6
[2023-10-17 12:03] VITALS: BP 119/71; PULSE 61; RESP 16; TEMP 36.4; O2SAT 98
[2023-10-17] MEDS: Lactated Ringers 1,000 ML 100 ML IVCONT (12:12)
--- NOTE | 2023-10-17 12:12 | PM.OP ---
Brief Operative Note Date of Service: 10/17/23 Pre-op diagnosis: Abdominal pain, s/p gastric bypass Post-op diagnosis: same Procedure: PROCEDURE DATE: ?10/17/2023 PREOPERATIVE DIAGNOSIS: GERD, s/p gastric bypass POSTOPERATIVE DIAGNOSIS: ?Same as above. 1) Redundant gastric pouch, PROCEDURE: [id number]-[id number] with biopsies Surgeon: ?Montrell Dunlap M.D.. Ph.D. Grocery Store Courtesy Clerk: ?None ? Anesthesia: IV sedation Estimated blood loss: ?Minimal FINDINGS AND PROCEDURE: ? OPERATIVE INDICATIONS: ?The patient is a 37 year old female known to me who underwent a laparoscopic gastric bypass by Dr. Alvarez at [facility].. The patient had inadequate weight loss so far and has some abdominal pain.? Based on this information I recommended an upper endoscopy to evaluate the patient's symptoms.? Risks and complications of the surgery were discussed with the patient in advance particularly the possibility of perforation or bleeding that may require surgical intervention. The patient understood the risks and was in agreement with the plan. ? PROCEDURE: After informed consent was obtained by the patient, the patient was ?transferred to the Operating Room and was placed in the supine position.? After successful induction of IV sedation, a mouth block was placed and the patient was placed in the left lateral decubitus position. An upper endoscopy was performed next, the oropharynx and esophagus appeared within the normal limits. There was no hiatal hernia. The z-line was smooth. Two biopsies were obtained from the distal esophagus 2-3 cm proximal to the GE junction and two biopsies from the GE junction. The gastric pouch was entered. It was about 10cm long (GE junction at 36cm and GJ anastomosis at 46cm). There was moderate redundancy near the GE junction, laterally with retained gastric fundus. The remaining of the pouch was tubular but somewhat enlarged in diameter. There was no gastritis and the gastrojejunostomy was patent. A biopsy was obtained from the gastric pouch. No significant bleeding was noted from any of the biopsy sites. There was no anastomotic ulcer.? At that point the scope was advanced into the proximal small intestine (proximal Kathy limb) which appeared to be normal as well. The Kathy limb and the pouch were decompressed and the scope was withdrawn from the patient's mouth. The patient was awaken and was transferred in stable condition to the Recovery Room for further care. I was present and performed all steps of the procedure. There were no residents to assist with this case. Montrell Dunlap M.D., Ph.D. Surgeon: Crow Dunlap MD Anesthesia: MAC Was an Grocery Store Courtesy Clerk used for this Procedure?: No Estimated blood loss (mL): 0 IV fluids (mL): 400 Urine output (mL): 0 Pathology: other (1) gastric pouch x1, 2) GE junction x2, 3) distal esophagus x2) Condition: stable Disposition: PACU
[2023-10-17 12:36] VITALS: BP 111/67; PULSE 82; RESP 16; TEMP 36.6; O2SAT 99
[2023-10-17 12:51] VITALS: BP 129/81; PULSE 62; RESP 18; TEMP 36.7; O2SAT 95
== END 2023-10-17 13:29 | disposition home or self-care (01) ==
PROVIDERS: PCP Internal Medicine; Visit Provider Surgery
PROC: 0DJ08ZZ Inspection of Upper Intestinal Tract, Via Natural or Artificial Opening Endoscopic (ICD-10-PCS; CPT 43235; principal; 2023-10-17 13:30)
DX: K21.9 Gastro-esophageal reflux disease without esophagitis (principal); K31.89 Other diseases of stomach and duodenum; E66.01 Morbid (severe) obesity due to excess calories; Z68.43 Body mass index [BMI] 50.0-59.9, adult; Z98.84 Bariatric surgery status
CPT/HCPCS: 43239; 88305; 88342; J2250; J2704

== ENCOUNTER → 2023-10-17 11:24 | Outpatient (BNV) | payer OTHER, SELFPAY | PROVIDERS: PCP Internal Medicine; Visit Provider Surgery | DX: K95.89 Other complications of other bariatric procedure (principal); K21.9 Gastro-esophageal reflux disease without esophagitis; Z90.3 Acquired absence of stomach [part of]; Z98.84 Bariatric surgery status | CPT/HCPCS: 43239 ==

== ENCOUNTER 2023-10-29 09:57 | Outpatient (AMB) | payer OTHER, SELFPAY ==
--- NOTE | 2023-10-29 09:34 | A.OFFVIS_ITS ---
Intake VS Expanded 10/29/23 09:36 Height 5 ft 2 in Weight 274 lb 2 oz BMI 50.1 Intake Visit Reasons: TV F/U SWL Allergies No Known Allergies Allergy (Verified 08/02/23 11:10) HPI HPI Comments History of Present Illness Details SW follow up for revision of GBP. 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 10am - Premier powder with 8oz UAM 2pm - 7 forks protein and 6 forks vegeta bles 4:30 pm - Premier shake 7pm- Premier bar (30 grams) Exercise - 40 minutes on treadmill, speed 5.5 -8, incline 1-4 - burn 450 calories, 5 d/week. After treadmill - walks 5- 10 minutes, then goes into pool for 10 laps freestyle. Pre op work up completed as follows: SW classes - 05/08 BH appts - cleared RD appts - cleared H pylori - negative Labs - Vit A and D CXR and ECG - both normal ULS - R 16.3, R 13.4 - hepatomegaly UGI - IMPRESSION: 1. Small type I hiatal hernia. 2. Mild gastroesophageal reflux 3. Postoperative changes consistent with prior history of gastric bypass. 4. A small blind pouch of Kathy limb is p resent adjacent to thegastrojejunostomy anastomosis. EGD scheduled for 10/17/[address] Noel stone a candidate for revision. There was no hiatal hernia. The z-line was smooth. Two biopsies were obtained from the distal esophagus 2-3 cm proximal to the GE junction and two biopsies from the GE junction. The gastric pouch was entered. It was about 10cm long (GE junction at 36cm and GJ anastomosis at 46cm). There was moderate redundancy near the GE junction, laterally with retained gastric fundus. The remaining of the pouch was tubular but somewhat enlarged in diameter. There was no gastritis and the gastrojejunostomy was patent. A biopsy was obtained from the gastric pouch. No significant bleeding was noted from any of the biopsy sites. There was no anastomotic ulcer.? At that point the scope was advanced into the proximal small intestine (proximal Kathy limb) which appeared to be normal as well. Biopsies - negative for h ylori some chronic milkd inflammation - ? Barretts esophagus. Contraception-tubal ligation [facility] Medical History Hiatal hernia GERD (gastroesophageal reflux disease) Morbid obesity Surgical History (Updated 10/17/23 @ 12:06 by Danita Bhat MD) H/O partial nephrectomy H/O tubal ligation History of cholecystectomy Gastric bypass status for obesity Family History Mother Kidney failure Diabetes Hypertension Congestive heart failure Father Brain aneurysm AIDS Son Diabetes Son Asthma Daughter No problems noted. Social History Household Members: Spouse and Children Housing: House Alcohol intake: never Patient Tobacco Use Status: Never used Tobacco Current occupational status: employed Current occupation: [employer] Medical Assessment & Plan Assessment & Plan (1) Morbid obesity: Code(s): E66.01 - Morbid (severe) obesity due to excess calories Plan: Pre op work up for revision of GBP completed needs to lose 29 lbs in total 13. 6 lbs so far 4.7% No changes to meal plan. Pt to come in for weight check, weigh herself at home first. Exercise - will change to treadmill 5 d/ week - speed 3.0, incline 3 - 10, (3 mintues) 450 calories. Weights 3 d/week - UE - 3 machines - 15 lbs 3sets of 15 ABds - 2 machines 15 lbs 3sets of 15 LE - 3 machines 30 lbs - 3 sets of 15 Next appt with me in 3 weeks, weekly weights. Patient is still morbidly obese and is not considered stable at this time. I spent 27 minutes in total speaking with the patient via video conference counseling , reviewing records and charting in patients chart. (2) Gastric bypass status for obesity: Comment: 2013 Code(s): Z98.84 - Bariatric surgery status Plan: see above Telehealth Telehealth Location of provider rendering services: practice address Location of patient: address on file Patient Identification confirmed using: Name, : Yes Telehealth method: video Patient verbally consented to treatment: Yes Patient verbally consented to billing insurance company: Yes Patient informed of any privacy concerns related to visit: Yes Coding Level of Care Code Tele Est Pt Level 4 (91355) Diagnoses Morbid obesity E66.01 Gastric bypass status for obesity Z98.84
[2023-10-29 09:36] VITALS: BMI 50.1
== END 2023-10-29 10:00 | disposition home or self-care (01) ==
LOC: HO.HBS 09:57
PROVIDERS: PCP Internal Medicine; Visit Provider Physician Assistant
DX: E66.01 Morbid (severe) obesity due to excess calories (principal); Z98.84 Bariatric surgery status
CPT/HCPCS: 99214

== ENCOUNTER → 2023-10-29 09:57 | Outpatient (BNVA) | payer OTHER, SELFPAY | PROVIDERS: PCP Internal Medicine; Visit Provider Physician Assistant | DX: E66.01 Morbid (severe) obesity due to excess calories (principal); Z98.84 Bariatric surgery status ==

== ENCOUNTER → 2023-11-09 09:48 | Outpatient (BNVA) | payer OTHER, SELFPAY | PROVIDERS: PCP Internal Medicine; Visit Provider Physician Assistant ==

== ENCOUNTER 2023-11-23 11:30 | Outpatient (AMB) | payer OTHER, SELFPAY ==
--- NOTE | 2023-11-23 11:01 | A.OFFVIS_ITS ---
Intake VS Expanded 11/23/23 11:36 Height 5 ft 2 in Weight 278 lb 3 oz BMI 50.9 Intake Visit Reasons: TV F/U SWL Allergies No Known Allergies Allergy (Verified 08/02/23 11:10) Medication List - Last Reconciled 11/23/23 by Angeles Alvarez PA-C cholecalciferol (vitamin D3) 50 mcg PO DAILY vitamin A palmitate 6,000 mcg (2 x 3,000 mcg (10,000 unit)) PO DAILY 2 weeks HPI HPI Comments History of Present Illness Details [facility] follow up for revision of previo us GBP. EGD done and revisio n approved by Dr Shukla . 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 5 lbs lbs or 3.2%. has gained weigh over the last few weeks. Was away fo r a week and did n ot exercise as bel ow and went off me al plan. Exercis e - 5d/week - ignacio dmill - speed ?, i ncline 3, mcdonnell ab out 450 claories i n 45 minutes. Leidy l plan: wakes at 6 :30 am 10 am - Pre yue powder with U AM - over 20 minut es 2pm - 6-7 forks shredded chicken with 6 forks rayo uce and tomatoes. water 5:30 - anoth er shake 8pm - pro tein bar - only 1/ 2 - 3/4 only. - do esn't like it - pr emier bar Only ch ecks BS if she thi nks it's low. Last time she checked was 2 weeks ago , 65. Pre op wor k up completed as follows: SWL class es - 05/08 BH appts - cleared RD appts - cleare d H pylori - negat tarun Labs - Vit A a nd D CXR and ECG - both normal ULS - R 16.3, R 13.4 - hepatomegaly UGI - IMPRESSION: 1. S mall type I hiatal hernia.2. Mild ga stroesophageal ref lux3. Postoperativ e changes consiste nt with prior hist ory of gastric byp ass.4. A small bli nd pouch of Kathy l imb is present adj acent to thegastro jejunostomy anasto mosis. EGD done 10/17/[address] Shukla. she is a candidat e for revision. T here was no hiatal hernia. The z-mendoza e was smooth. Two biopsies were obta ined from the dist al esophagus 2-3 c m proximal to the GE junction and tw o biopsies from th e GE junction. The gastric pouch was entered. It was a bout 10cm long (GE junction at 36cm and GJ anastomosis at 46cm). There w as moderate redund abdifatah near the GE j unction, laterally with retained gas tric fundus. The r emaining of the po uch was tubular bu t somewhat enlarge d in diameter. The re was no gastriti s and the gastroje junostomy was roman nt. A biopsy was o btained from the g astric pouch. No s ignificant bleedin g was noted from a ny of the biopsy s ites. There was no anastomotic ulcer .? At that point t he scope was advan roque into the proxi mal small intestin e (proximal Kathy l imb) which appeare d to be normal as well. Biopsies - negative for h ylo ri some chronic mi lkd inflammation - ? Barretts esopha yoko. Contraceptio n-tubal ligation [facility] Medical History (Updated 11/23/23 @ 11:58 by Angeles Alvarez PA-C) Hiatal hernia GERD (gastroesophageal reflux disease) Morbid obesity Surgical History (Updated 10/17/23 @ 12:06 by Danita Bhat MD) H/O partial nephrectomy H/O tubal ligation History of cholecystectomy Gastric bypass status for obesity Family History Mother Kidney failure Diabetes Hypertension Congestive heart failure Father Brain aneurysm AIDS Son Diabetes Son Asthma Daughter No problems noted. Social History Household Members: Spouse and Children Housing: House Alcohol intake: never Patient Tobacco Use Status: Never used Tobacco Current occupational status: employed Current occupation: [employer] Medical Assessment & Plan Assessment & Plan (1) Morbid obesity: Code(s): E66.01 - Morbid (severe) obesity due to excess calories Plan: Pre op work up completed for revision of GBP. We discussed that she needs to have a full protien bar and that she should try other brands to find one she likes - Zone, Celebrate and Atkins suggested. Exercise - treadmill 5d/week -- speed 3.0, incline 2 -9 (3minutes) - 450 calories. Will text me next week with progress. Has appt with PCP next week. Patient is still morbidly obese and is not considered stable at this time. I spent 30 minutes in total speaking with the patient via video conference counseling , reviewing records and charting in patients chart. . (2) Gastric bypass status for obesity: Comment: 2013 Code(s): Z98.84 - Bariatric surgery status Plan: approved for revision (3) Hypoglycemia after GI (gastrointestinal) surgery: Code(s): K91.2 - Postsurgical malabsorption, not elsewhere classified Plan: States has had this for 4 years, improved with our meal plan. No low sugars for last 2 weeks. Telehealth Telehealth Location of provider rendering services: practice address Location of patient: address on file Patient Identification confirmed using: Name, : Yes Telehealth method: video Patient verbally consented to treatment: Yes Patient verbally consented to billing insurance company: Yes Patient informed of any privacy concerns related to visit: Yes Coding Level of Care Code Tele Est Pt Level 4 (55963) Diagnoses Morbid obesity E66.01 Gastric bypass status for obesity Z98.84 Hypoglycemia after GI (gastrointestinal) surgery K91.2
[2023-11-23 11:36] VITALS: BMI 50.9
== END 2023-11-23 11:59 | disposition home or self-care (01) ==
LOC: HO.HBS 11:56
PROVIDERS: PCP Internal Medicine; Visit Provider Physician Assistant
DX: E66.01 Morbid (severe) obesity due to excess calories (principal); Z98.84 Bariatric surgery status; K91.2 Postsurgical malabsorption, not elsewhere classified
CPT/HCPCS: 99214

== ENCOUNTER → 2023-11-23 11:30 | Outpatient (BNVA) | payer OTHER, SELFPAY | PROVIDERS: PCP Internal Medicine; Visit Provider Physician Assistant | DX: E66.01 Morbid (severe) obesity due to excess calories (principal); Z98.84 Bariatric surgery status ==

== ENCOUNTER 2023-12-27 12:32 | Outpatient (AMB) | payer OTHER, SELFPAY ==
--- NOTE | 2023-12-27 12:05 | A.OFFVIS_ITS ---
Intake VS Expanded 12/27/23 12:32 Height 5 ft 2 in Weight 276 lb BMI 50.5 Intake Visit Reasons: TV F/U SWL Allergies No Known Allergies Allergy (Verified 08/02/23 11:10) Medication List - Last Reconciled 12/27/23 by Angeles Alvarez PA-C cholecalciferol (vitamin D3) 50 mcg PO DAILY multivitamin 1 tab PO DAILY omeprazole 10 mg PO DAILY vitamin A palmitate 6,000 mcg (2 x 3,000 mcg (10,000 unit)) PO DAILY 2 weeks HPI HPI Comments History of Present Illness Details [facility] follow up for revision of previous GBP. EGD done 10/17/23 and revision approved by Dr Shukla. SKIN CARVER weight of 287.8 lbs, TBWL is 11.8 lbs lbs or 4.1%. has gained weight - now Was away for a week and did not exercise as below and went off meal plan. She does not send me weekly weights or any communication in between appointments Exercise - gym 5d/week - 5d/wk treadmill - speed 2 ->5, incline 2-8, mcdonnell ab out 450 calories in 30 minutes. Bikes for 10 minutes afterwards to cool down for 75 calories. Sleeps 8 hours per night Meal plan: wakes at 6:30 am 9 am - Premier powder with UAM - over 20 minutes 1pm - 6-7 forks grilled or baked chicken with 6 forks lettuce and tomatoes. water 5 pm - another shake 8 pm - Celebrate protein bar - 3/4 only. BS have been good, not checking but does not feel low. Pre op work up completed as follows:[facility] classes - 05/08 BH appts - cleared RD appts - cleared H pylori - negative Labs - Vit A and D CXR and ECG -both normal ULS -R 16.3, R 13.4 - hepatomegaly UGI - IMPRESSION: 1. Small type I hiatal hernia.2. Mild ga stroesophageal reflux3. Postoperative changes consistent with prior history of gastric bypass.4. A small blind pouch of Kathy limb is present adjacent to thegastrojejunostomy anastomosis. EGD done 10/17/[address] Shukla. she is a candidate for revision. There was no hiatalhernia. The z-line was smooth. Two biopsies were obtained from the distal esophagus 2-3 cm proximal to the GE junction and two biopsies from the GE junction. The gastric pouch was entered. It was about 10cm long (GE junction at 36cm and GJ anastomosis at 46cm). There was moderate redundancy near the GE junction, laterally with retained gastric fundus. The remaining of the pouch was tubular but somewhat enlarged in diameter. There was no gastritis and the gastrojejunostomy was patent. A biopsy was obtained from the gastric pouch. No significant bleeding was noted from any of the biopsy sites. There was no anastomotic ulcer.? At that point the scope was advanced into the proximal small intestine (proximal Kathy lmb) which appeared to be normal as well. Biopsies - negative for h ylori some chronic milkd inflammation - ? Barretts esophagus. Contraception-tubal ligation [facility] Medical History (Updated 11/23/23 @ 11:58 by Angeles Alvarez PA-C) Hiatal hernia GERD (gastroesophageal reflux disease) Morbid obesity Surgical History (Updated 10/17/23 @ 12:06 by Danita Bhat MD) H/O partial nephrectomy H/O tubal ligation History of cholecystectomy Gastric bypass status for obesity Family History Mother Kidney failure Diabetes Hypertension Congestive heart failure Father Brain aneurysm AIDS Son Diabetes Son Asthma Daughter No problems noted. Social History Household Members: Spouse and Children Housing: House Alcohol intake: never Patient Tobacco Use Status: Never used Tobacco Current occupational status: employed Current occupation: [employer] [facility] Assessment & Plan Assessment & Plan (1) Morbid obesity: Code(s): E66.01 - Morbid (severe) obesity due to excess calories Plan: Pt has completed all pre op work up for revision of previous GBP including EGD. She is following all meal and exercise plans but has had slow weight loss. 11.8 lbs TBWL now - she had gained earlier - and is now losing again. She will come to office for weight check tomorrow to verify weight results. Next appt with nando Camejo sent to [facility]. (2) Gastric bypass status for obesity: Comment: 2013 Code(s): Z98.84 - Bariatric surgery status Plan: see above Telehealth Telehealth Location of provider rendering services: practice address Location of patient: address on file Patient Identification confirmed using: Name, : Yes Telehealth method: video Patient verbally consented to treatment: Yes Patient verbally consented to billing insurance company: Yes Coding Level of Care Code Tele Est Pt Level 4 (80210) Diagnoses Morbid obesity E66.01 Gastric bypass status for obesity Z98.84
[2023-12-27 12:32] VITALS: BMI 50.5
== END 2023-12-27 12:49 | disposition home or self-care (01) ==
LOC: HO.HBS 12:32
PROVIDERS: PCP Internal Medicine; Visit Provider Physician Assistant
DX: E66.01 Morbid (severe) obesity due to excess calories (principal); Z98.84 Bariatric surgery status
CPT/HCPCS: 99214

== ENCOUNTER → 2023-12-27 12:32 | Outpatient (BNVA) | payer OTHER, SELFPAY | PROVIDERS: PCP Internal Medicine; Visit Provider Physician Assistant | DX: E66.01 Morbid (severe) obesity due to excess calories (principal); Z98.84 Bariatric surgery status; K91.2 Postsurgical malabsorption, not elsewhere classified ==

== ENCOUNTER → 2023-12-28 10:16 | Outpatient (BNVA) | payer OTHER, SELFPAY | PROVIDERS: PCP Internal Medicine; Visit Provider Physician Assistant ==

== ENCOUNTER 2024-02-15 09:10 | Outpatient (AMB) | payer OTHER, SELFPAY ==
--- NOTE | 2024-02-15 11:12 | A.OFFVIS_ITS ---
Intake Visit Reasons: TV Revision Consult/Transfer [place] Allergies No Known Allergies Allergy (Verified 02/15/24 11:12) Medication List - Last Reconciled 02/15/24 by Crow Dunlap MD famotidine 20 mg PO DAILY multivitamin 1 tab PO DAILY HPI HPI TV Revision Consult/Transfer Angeles: Details: Start time: 11am, End time: 11.39am ?I spent 34 minutes speaking with the patient on the phone plus an additional 5 minutes reviewing and updating records for a total of 39 minutes HPI Comments Details: Overall weight loss: 17lbs, or 5.91% TBWL Is doing 2 powdered Premier shakes (1 scoop in 8oz almond milk), lunch at 12.30- 1pm (6 forks of protein and 4 forks of salad), one Celebrate protein protein bar Exercise: Gym x5/wk doing treadmill and bike for 580 calories PFSH Medical History (Updated 02/15/24 @ 11:30 by Crow Dunlap MD) Hiatal hernia GERD (gastroesophageal reflux disease) Morbid obesity Surgical History (Updated 10/17/23 @ 12:06 by Danita Bhat MD) H/O partial nephrectomy H/O tubal ligation History of cholecystectomy Gastric bypass status for obesity Family History Mother Kidney failure Diabetes Hypertension Congestive heart failure Father Brain aneurysm AIDS Son Diabetes Son Asthma Daughter No problems noted. Social History Household Members: Spouse and Children Housing: House Alcohol intake: never Patient Tobacco Use Status: Never used Tobacco Current occupational status: employed Current occupation: [employer] Telehealth Telehealth Platform: Telephone Location of provider rendering services: practice address Location of patient: address on file Patient Identification confirmed using: Name, : Yes Telehealth method: voice only Patient verbally consented to treatment: Yes Patient verbally consented to billing insurance company: Yes Patient informed of any privacy concerns related to visit: Yes Minutes spent on Phone/Video with Pt.: 39 Assessment & Plan Assessment & Plan (1) Morbid obesity: Code(s): E66.01 - Morbid (severe) obesity due to excess calories Category: Medical Plan: 1. Plan for lap sleeve gastrectomy of your gastric pouch. If diaphragmatic or ventral hernias are present at time of surgery, these will be repaired laparoscopically as well. Risks and complications were discussed in detail including possible conversion to an open procedure, anastomotic leak, bleeding requiring transfusion, small bowel obstruction, , DVT and pulmonary embolism, cardiac, or pulmonary complications, as care home complications such as anastomotic ulcer, insufficient weight loss and vitamin deficiencies. I emphasized the importance of close follow-up, adherence to instructions and good communication. I also told her that there is a possibility of not completing her surgery if I don't feel the anatomy is clear enough to perform the procedure safely and she understands that. 2. Please change the nutritional plan to two Premier powdered shakes (1 scoop each in 8oz almond milk) at 7am-9am and 10am-12pm, 2 Celebrate protein bars at 1pm-3pm and 4pm-6pm, dinner at 7pm (6 forks of protein and 4 forks of salad or vegetables) and another HALF protein bar at 9pm-10pm 3. Change treadmill with an incline of 2.0 and speed of 3.0. Increase incline by 1 every 3 min to a max incline of 8.0, stay 3min at 8.0 and then return to 2.0 and repeat same steps until calorie goal is met. Goal is to burn 2000 calories per week on exercise, which means either 300 calories daily, or 400 calories 5 days per week, or 500 calories 4 days per week, or 650 calories 3 days per week. 4. Send me weight measurements weekly on Saturdays
== END 2024-02-15 11:40 | disposition home or self-care (01) ==
LOC: HO.HBS 09:10
PROVIDERS: PCP Internal Medicine; Visit Provider Surgery
DX: E66.01 Morbid (severe) obesity due to excess calories (principal)
CPT/HCPCS: 99214

== ENCOUNTER → 2024-02-15 09:10 | Outpatient (BNVA) | payer OTHER, SELFPAY | PROVIDERS: PCP Internal Medicine; Visit Provider Surgery ==

== ENCOUNTER 2024-03-19 08:33 | Outpatient (AMB) | payer OTHER, SELFPAY ==
--- NOTE | 2024-03-19 16:19 | MHC.OFFVISWM ---
VS Expanded 03/19/24 16:29 Height 5 ft 2 in Weight 259 lb BMI 47.4 Body Fat % 45 Body Fat Mass 116.5 Fat Free Mass 142.4 Visceral Fat Rating 20.5 Body Water % 40.5 Body Water Mass 104.8 Basal Metabolic Rate/Score 1,824 Intake Visit Reasons: TV Pre Op Revision GBP to LSG 04/01/24 Allergies No Known Allergies Allergy (Verified 03/19/24 16:19) Medication List - Last Reconciled 03/19/24 by Crow Dunlap MD docusate sodium (Colace) 100 mg PO DAILY famotidine 20 mg PO DAILY multivitamin 1 tab PO DAILY ondansetron 4 mg PO Q12H pantoprazole 40 mg PO DAILY polyethylene glycol 3350 17 grams PO DAILY sucralfate 10 mL PO BID HPI HPI TV Pre Op Revision GBP to LSG 04/01/24: Details: Start time: 4.08pm, End time: 4.38pm ?I spent 25 minutes speaking with the patient on the phone plus an additional 5 minutes reviewing and updating records for a total of 30 minutes HPI Comments Details: Overall weight loss: 27.3lbs, or 9.5% TBWL Is doing 2 powdered Premier shakes (1 scoop in 8oz almond milk), lunch at 12.30-1pm (6 forks of protein and 4 forks of salad), one Celebrate protein protein bar Exercise: Gym x5/wk doing treadmill and bike for 580 calories PFSH Medical History (Updated 02/24/24 @ 12:10 by Crow Dunlap MD) Hiatal hernia GERD (gastroesophageal reflux disease) Morbid obesity Surgical History (Updated 10/17/23 @ 12:06 by Danita Bhat MD) H/O partial nephrectomy H/O tubal ligation History of cholecystectomy Gastric bypass status for obesity Family History Mother Kidney failure Diabetes Hypertension Congestive heart failure Father Brain aneurysm AIDS Son Diabetes Son Asthma Daughter No problems noted. Social History Household Members: Spouse and Children Housing: House Alcohol intake: never Patient Tobacco Use Status: Never used Tobacco Current occupational status: employed Current occupation: [employer] Telehealth Telehealth Telehealth Platform: Telephone Location of provider rendering services: practice address Location of patient: address on file Patient Identification confirmed using: Name, : Yes Telehealth method: voice only Patient verbally consented to treatment: Yes Patient verbally consented to billing insurance company: Yes Patient informed of any privacy concerns related to visit: Yes Minutes spent on Phone/Video with Pt.: 30 Assessment & Plan Assessment & Plan (1) Morbid obesity: Code(s): E66.01 - Morbid (severe) obesity due to excess calories Category: Medical Plan: 1. Plan for lap sleeve gastrectomy including upper GI endoscopy. All tests has been completed and reviewed and the patient is cleared for the surgery. ?If diaphragmatic or ventral hernias are present at time of surgery, these will be repaired laparoscopically as well. Risks and complications were discussed in detail including possible conversion to an open procedure, anastomotic leak, bleeding requiring transfusion, small bowel obstruction, , DVT and pulmonary embolism, cardiac, or pulmonary complications, as rodent exterminator complications such as anastomotic ulcer, insufficient weight loss and vitamin deficiencies. I emphasized the importance of close follow-up, adherence to instructions and good communication. So far she has proven to be an excellent communicator and very compliant with all our directions accomplishing a great weight loss. I believe that she is an excellent candidate and she is ready. 2. Preop prescriptions were provided and explained the purpose of each one. Need to be purchased preop. Start Pantoprazole now as you get it from the pharmacy, 1 pill per day. Sucralfate and Zofran are for after surgery as needed. 3. Bowel prep: please do 7 packets ?of Miralax mixing each one with a an 8oz glass of water, crystal light, gatorade zero, or propel ?on 03/30/24 and the same amount on 03/31/24. The Miralax you begin with one packet at a time in 8oz water or crystal light, gatorade zero, or propel ?as early in the day as you can and you do them back to back until you finish them. Continue the protein shakes during? the bowel prep. 4. Needs to purchase 1oz medicine cups . 5. Needs to purchase Children's liquid Tylenol for postop pain control. 6. Avoid aspirin, motrin, Advil, Aleve, Ibuprofen, Naproxyn. Tylenol is OK. 7. She needs to purchase the Celebrate 4:1 protein shakes from the hospital[facility] gift [facility]. 8. Will do basic preop blood work-up any day between Sunday03/24/24 and Sunday03/28/24 fasting for 12 hours and is scheduled to see the Anesthesiologist prior to the day of surgery. 9. Importance of adherence to postop folllow-up and recommendations was underscored and she understands that. 10. Stop food and bars as of tomorrow 03/20/24 continue with 4 ?Premier protein shakes (ONE scoop EACH in 8oz almond milk) at 8am-10am, 11am-1pm, 2pm-4pm, 5pm-7pm and one more Premier protein shake with TWO scoops in 8oz of almond milk at 8pm-10pm 11. No soups, broths or V8 12. The patient's?medical?history has been reviewed and they are considered low risk for post op DVT and therefore DVT prophylaxis is not considered necessary. Travel after surgery was reviewed. The patient has not disclosed any travel plans during the first 30 days after surgery and they have been advised that within the first 30 days after surgery any bus, plane, train or car travel over 2 hours in duration is contraindicated due to the possibility of developing blood clots from immobility. Any travel, needs to include periods of ambulation of 10 minutes in duration every 2 hours.? Patient was instructed to discuss any plans for travel during this period with their bariatric surgeon.? 13. Please take at the day of surgery the following medications: NONE 14. Stop any control pills and don't use them for one month after surgery 15. Absolutely no smoking or vaping, or marijuana until the surgery and for at least the first 4 weeks. Only nicotine patches are allowed. 16. Send me weight measurements on Sunday03/26/24 and then on Sunday04/01/24, the day of surgery before you go to the hospital. 17. Avoid any steroids by mouth for any reason. Let me know if someone prescribes them to you 18. These instructions supersede anything else you read in the handbook, anything you watched in videos or classes or you were told by any other provider. If there is any conflict, you follow the above instructions and nothing else. Orders: Orders Comprehensive Met. Panel Today E66.01 - Morbid (severe) obesity due to excess calories Type and Screen Today E66.01 - Morbid (severe) obesity due to excess calories Partial Thromboplastin Time Today E66.01 - Morbid (severe) obesity due to excess calories Lipid Panel Today E66.01 - Morbid (severe) obesity due to excess calories Insulin Today E66.01 - Morbid (severe) obesity due to excess calories TSH reflex Free T4 Today E66.01 - Morbid (severe) obesity due to excess calories Prothrombin Time INR Today E66.01 - Morbid (severe) obesity due to excess calories C Reactive Protein Today E66.01 - Morbid (severe) obesity due to excess calories Hemoglobin A1c Today E66.01 - Morbid (severe) obesity due to excess calories Complete Blood Count Auto Diff Today E66.01 - Morbid (severe) obesity due to excess calories Medications: New pantoprazole 40 mg PO DAILY 90 tabs 0RF K20.90 - Esophagitis, unspecified without bleeding sucralfate 10 mL PO BID 600 mL 2RF K20.90 - Esophagitis, unspecified without bleeding ondansetron 4 mg PO Q12H 20 tabs 0RF nausea and vomiting R11.0 - Nausea polyethylene glycol 3350 Mix each measuring cup with 8oz of water, Crystal light, or Gatorade zero, or Propel and do 7 measuring cups on 03/30/24 and another 7 measuring cups on 03/31/24 17 grams PO DAILY 238 grams 0RF Z01.818 - Encounter for other preprocedural examination
[2024-03-19 16:29] VITALS: BMI 47.4
== END 2024-03-19 16:39 | disposition home or self-care (01) ==
LOC: HO.HBS 08:33
PROVIDERS: PCP Internal Medicine; Visit Provider Surgery
DX: E66.01 Morbid (severe) obesity due to excess calories (principal)
CPT/HCPCS: 99214

== ENCOUNTER → 2024-03-19 08:33 | Outpatient (BNVA) | payer OTHER, SELFPAY | PROVIDERS: PCP Internal Medicine; Visit Provider Surgery ==

== ENCOUNTER → 2024-03-25 07:32 | Outpatient (BNVA) | payer OTHER, SELFPAY | PROVIDERS: PCP Internal Medicine; Visit Provider Surgery ==

== ENCOUNTER 2024-04-01 10:18 | Inpatient (IN) | payer OTHER, SELFPAY ==
[2024-03-25 07:31] LABS: MANUAL DIFF FLAG NO
[2024-03-25 07:43] LABS: Basophils Percent Auto 0.4 % (0-2); Eosinophils Absolute Auto 0.4 X10*3/uL (0.0-0.4); Eosinophils Percent Auto 4.5 % (0-4); Hemoglobin 13.3 g/dl (12.0-16.0); Imm Gran Abs Auto 0.01 X10*3/uL (0.00-0.03); Imm Gran Pct Auto 0.1 % (0.0-0.4); Lymphocytes Absolute Auto 2.4 X10*3/uL (1.2-4.9); Lymphocytes Percent Auto 30.1 % (20-40); Mean Corpuscular HGB Conc 33.3 g/dl (31.0-35.0); Mean Corpuscular Hemoglobin 28.1 pg (27.0-33.0); Mean Corpuscular Volume 84.4 fL (80.0-98.0); Mean Platelet Volume 10.8 fL (9.4-12.3); Monocytes Absolute Auto 0.6 X10*3/uL (0.1-1.2); Monocytes Percent Auto 7.6 % (2-11); Neutrophils Absolute Auto 4.6 x10*3/uL (2.0-8.3); Neutrophils Percent Auto 57.3 % (45-73); Platelet Count 298 X10*3/uL (160-400); Red Blood Count 4.74 X10*6/uL (4.20-5.50); Red Cell Distribution Width 13.9 % (11.0-16.0); White Blood Count 7.9 X10*3/uL (4.8-10.8)
[2024-03-25 07:48] LABS: INTERNATIONAL NORM RATIO 1.2 (0.9-1.1); Prothrombin Time 14.3 SEC (11.1-13.3)
[2024-03-25 07:51] LABS: Partial Thromboplastin Time 29.3 SEC (26.0-36.8)
[2024-03-25 08:00] LABS: Estimated Average Glucose 103 mg/dL; Hemoglobin A1c % 5.2 % (<6.0)
[2024-03-25 08:19] LABS: Alanine Aminotransferase 17 U/L (0-31); Albumin Level 3.8 g/dL (3.5-5.0); Alkaline Phosphatase 101 U/L (39-117); Anion Gap 10 (12-20); Aspartate Amino Transferase 15 U/L (5-31); Bilirubin Total 0.3 mg/dL (0.0-1.0); Blood Urea Nitrogen 13 mg/dL (9-16); Calcium 9.1 mg/dL (8.4-10.2); Carbon Dioxide 26 mmol/L (22-29); Chloride 109 mmol/L (96-108); Cholesterol 123 mg/dL (<200); Estimated Glomerular Filt Rate > 60; Glucose Random 92 mg/dL (60-115); HDL Cholesterol 31 mg/dL (>40); LDL Cholesterol Calculated 71 mg/dL (<100); Potassium 3.9 mmol/L (3.3-5.1); Sodium 141 mmol/L (135-145); Total Protein 7.5 g/dL (6.5-8.0); Triglycerides 106 mg/dL (<150)
[2024-03-25 08:39] LABS: Insulin 24 uU/mL (2-29); TSH reflex Free T4 2.19 uIU/mL (0.32-4.0)
[2024-03-25 13:00] VITALS: BMI 47.0
[2024-04-01] VITALS (10 sets, daily range): BP systolic 117–140; BP diastolic 64–85; PULSE 66–82; RESP 14–18; TEMP 36.1–37; O2SAT 89–100
--- OUTSIDE RECORDS SUMMARY | 2024-04-01 10:20 | XMS_ITS | Continuity of Care Document ---
Author Organization [facility] Address [address] [place] [id number]- Care Team Providers Care Outer Diameter Grinder Name Role Phone Robel Rodriguez MD Primary Care Physician [place] [facility] [place]/30[place]20 [facility] [address] [place] [id number]- [facility] Allergies, Adverse Reactions, Alerts No Known Medication Allergies Substance Reaction Severity Status Other Environmental Allergy grass/trees-asthmaexac Active Immunizations Given and Recorded Vaccine Date Status Refusal Reason tetanus/diphtheria/pertussis, acel(Tdap) 10/10/19 Given tetanus/diphtheria/pertussis, acel(Tdap) 11/02/15 Given tetanus/diphtheria/pertussis, acel(Tdap) 12/23/13 Given influenza virus vaccine, inactivated 07/11/19 Give n influenza virus vaccine, inactivated 07/02/15 Give n influenza virus vaccine, inactivated 1 06/23/14 Gi vianey influenza virus vaccine, inactivated 12/31/13 Give n pneumococcal 23-valent vaccine 08/31/18 Given Influenza Vaccine (oldterm) 08/01/16 Recorded Not Given Vaccine Date Status Refusal Reason pneumococcal 23-valent vaccine 04/04/15 Not Given Patient Refuses 1Admin Note[facility] Medic[facility] Acetaminophen 0 Refills, Maintenance, 12/04/19 12:06:00 EST Start Date: 12/04/19 Status: Ordered albuterol 90 mcg/inh inhalation powder 2 puffs, Inhalation, Every 6 hours, PRN as needed, # 1 each, 0 Refills, Maintenance, 08/08/19 8:23:08 EST, Powder, 2 puffs Inhalation Every 6 hours,PRN:as needed Start Date: 08/08/19 Status: Ordered Compression Stockings surgical, knee high length 20-30 mm Hg, # 2 pair, Refills 1, Tot. Refills 1, Maintenance, wear daily remove bedtime, 08/21/17 9:14:50, Compound Start Date: 08/21/17 Status: Ordered ferrous fumarate 325 mg oral tablet 1 tablet = 325 mg, By Mouth, Daily, # 90 tablet, 1 Refills, Maintenance, 01/28/20 11:56:00 EDT, Tablet, [facility]/pharmacy #[id number], 157.5, cm, 12/14/19 9:35:00 EDT, Height, 122, kg, 12/12/19 8:33:00 EDT, DryWeight Start Date: 01/28/20 Status: Ordered Flovent HFA 44 mcg/inh inhalation aerosol = 88 mcg, Inhalation, 2 times a day, # 1 each, 0 Refills, Maintenance, 10/10/19 16:40:00 EST, [facility]/pharmacy #[id number], 157.48, cm, 10/10/19 9:25:00 EST, Height, 118.63, kg, 08/30/18 15:56:00 EST, Dry Weight Start Date: 10/10/19 Status: Ordered Freestyle Lite Lancets See Instructions, # 120 each, Refills 5, Tot. Refills 5, Maintenance, use to test blood sugars 4x/day; Dx: w/ Hx of gastric bypass, 07/11/19 10:32:42 EDT, Compound Start Date: 07/11/19 Status: Ordered Freestyle Lite Monitor See Instructions, # 1 each, Refills 0, Tot. Refills 0, Maintenance, use to test blood sugars 4x/day; Dx: w/ Hx of gastric bypass, 07/11/19 10:32:32 EDT, Compound Start Date: 07/11/19 Status: Ordered Freestyle Lite Test Strips See Instructions, # 120 each, Refills 5, Tot. Refills 5, Maintenance, use to test blood sugars 4x/day; Dx: w/ Hx of gastric bypass, 07/11/19 10:32:36 EDT, Compound Start Date: 07/11/19 Status: Ordered One-A-Day Women 1 tablet, By Mouth, Daily, 0 Refills, Maintenance, 10/06/16 16:47:26 Start Date: 10/06/16 Stop Date: 11/05/16 Status: Ordered Peak Flow Meter (Adult) See Instructions, # 1 kit, Maintenance, Use twice daily for asthma assessment, 10/27/19 17:05:00 EST, Compound, 157.48, cm, 10/27/19 8:43:00 EST, Height, 118.63, kg, 08/30/18 15:56:00 EST, Dry Weight Start Date: 10/27/19 Status: Ordered Vitamin B-12 500 mcg oral tablet 1 tablet = 500 mcg, By Mouth, Daily, # 30 tablet, 4 Refills, Maintenance, 10/28/19 13:42:00 EST, Tablet, [id number], 157.48, cm, 10/27/19 8:43:00 EST, Height, 118.63, kg, 08/30/18 15:56:00 EST, Dry Weight Start Date: 10/28/19 Status: Ordered Vitamin D3 2000 intl units oral capsule 2 capsule = 4,000 International_Units, By Mouth, Daily, for 30 days, # 60 capsule, 6 Refills, Hard Stop 05/07/20 16:40:00 EDT, 10/10/19 16:40:00 EST, [id number], 157.48, cm, 10/10/19 9:25:00 EST, Height, 118.63, kg, 08/30/18 15:56:00 EST, Dry... Start Date: 10/10/19 Stop Date: 05/07/20 Status: Ordered Vitamin D3 2000 intl units oral capsule 2 capsule = 4,000 International_Units, By Mouth, Daily, # 60 capsule, 6 Refills, Maintenance, 05/07/20 16:40:00 EDT, [id number], 157.5, cm, 12/14/19 9:35:00 EDT, Height, 122, kg, 12/12/19 8:33:00 EDT, Dry Weight Start Date: 05/07/20 Status: Ordered Problem List Condition Effective Dates Status Health Status Inform ant Environmental and seasonal allergies(Confirmed) Active Anemia in (Confirmed) Active H/O Anxiety(Confirmed) Active Low vitamin D level(Confirmed) Active Bulging lumbar disc(Confirmed) 1 Active Genital herpes(Confirmed) Active Hx of gastric bypass(Confirmed) Active History of hemorrhage(Confirmed) Active History of stillbirth in pre gnant patient in second trimester, antepartum(Confirmed) Active H/O Migraine with aura(Confirmed) Active Asthma(Confirmed) 2 Active Morbid Obesity(Confirmed) Active Orthopnea(Confirmed) Active PCOS (polycystic ovarian syndrome)(Confirmed) Active H/O Renal cell carcinoma(Confirmed) 01/28/15 Active Request for sterilization(Confirmed) Active Superficial vein thrombosis( Confirmed) 2018 Active Varicose vein of leg(Confirmed) Active 1Prior to knowledge of - pt reports she was on pain injection treatment 2managed by PCP 3Left leg Social History Social History Type Response Smoking Status Never smoker entered on: 02/12/14 Sex
--- OUTSIDE RECORDS SUMMARY | 2024-04-01 10:21 | XMS_ITS | Continuity of Care Document ---
Author Organization [facility] Address [address] [place] [address]- Care Team Providers Care Pediatric Geneticist Name Role Phone Robel Rodriguez MD Primary Care Physician Encounter [facility] Date(s): 09/01/21 - 10/01/21 [facility] [address] [place] [id number] Attending Physician: Lawrence Lehman Admitting Physician: AdmLawrence brock Referring Physician: AdmtrLawrence Allergies, Adverse Reactions, Alerts Substance Reaction Severity Status Other Food Allergy throat closure almonds and isaiah nuts Active Other Environmental Allergy grass/trees-asthmaexac Active Immunizations Given and Recorded Vaccine Date Status Refusal Reason influenza virus vaccine, inactivated 07/21/20 Give n influenza virus vaccine, inactivated 07/11/19 Give n influenza virus vaccine, inactivated 07/02/15 Give n influenza virus vaccine, inactivated 1 06/23/14 Gi vianey influenza virus vaccine, inactivated 12/31/13 Give n tetanus/diphtheria/pertussis, acel(Tdap) 10/10/19 Given tetanus/diphtheria/pertussis, acel(Tdap) 11/02/15 Given tetanus/diphtheria/pertussis, acel(Tdap) 12/23/13 Given pneumococcal 23-valent vaccine 08/31/18 Given Influenza Vaccine (oldterm) 08/01/16 Recorded Not Given Vaccine Date Status Refusal Reason pneumococcal 23-valent vaccine 04/04/15 Not Given Patient Refuses 1Admin Note[facility] acetaminophen 325 mg oral tablet 650 mg, 2, tablet, By Mouth, Every 4 hours, PRN, # 50 tablet, Refills 0, Tot. Refills 0, Maintenance, as needed for pain, 12/23/20 10:18:00 EDT, Route to Pharmacy Electronically, [facility]/pharmacy #[id number], Partial fill upon patient request if the prescriptio... Start Date: 12/23/20 Status: Ordered albuterol 90 mcg/inh inhalation powder [...] 9:14:50, Compound Start Date: 08/21/17 Status: Ordered [facility] ALCOHOL 70% PREP PADS [facility] ALCOHOL 70% PREP PADS, See Instructions, # 120 Unknown, 4 Refills, Maintenance, USE TO TEST BLOOD SUGARS 4X/DAY DX: W/ HX OF GASTRIC BYPASS, 157.48, cm, 12/23/20 9:53:00 EDT, Height, 133.8, kg, 12/23/20 9:53:00 EDT, Dry Weight Start Date: 03/24/21 Status: Ordered docusate sodium 100 mg oral tablet 1 tablet = 100 mg, By Mouth, 2 times a day, PRN for constipation, # 60 tablet, 0 Refills, Maintenance, 12/23/20 10:18:00 EDT, Tablet, [facility]/pharmacy #[id number], Partial fill upon patient request if the prescription is for a schedule II opioid drug., 157.48,... Start Date: 12/23/20 Status: Ordered Freestyle Lite Lancets See Instructions, # 120 each, Refills 5, Tot. Refills 5, Maintenance, use to test blood sugars 4x/day; Dx: w/ Hx of gastric bypass, 05/13/21 9:25:00 EDT, Compound, 157.48, cm, 05/13/21 8:42:00 EDT, Height, 133.8, kg, 12/23/20 9:53:00 EDT, Start Date: 05/13/21 Status: Ordered Freestyle Lite Monitor See Instructions, # 1 each, Refills 0, Tot. Refills 0, Maintenance, use to test blood sugars 4x/day; Dx: w/ Hx of gastric bypass, 05/13/21 9:25:00 EDT, Compound, 157.48, cm, 05/13/21 8:42:00 EDT, Height, 133.8, kg, 12/23/20 9:53:00 EDT, Dry... Start Date: 05/13/21 Status: Ordered Freestyle Lite Test Strips See Instructions, # 120 each, Refills 5, Tot. Refills 5, Maintenance, use to test blood sugars 4x/day; Dx: w/ Hx of gastric bypass, 05/13/21 9:24:00 EDT, Compound, 157.48, cm, 05/13/21 8:42:00 EDT, Height, 133.8, kg, 12/23/20 9:53:00 EDT, Dr... Start Date: 05/13/21 Status: Ordered ibuprofen 600 mg oral tablet 600 mg, 1, tablet, By Mouth, Every 6 hours, # 40 tablet, Refills 0, Tot. Refills 0, Maintenance, 12/23/20 10:18:00 EDT, Route to Pharmacy Electronically, [facility]/pharmacy #[id number], Partial fill upon patientrequest if the prescription is for a schedule II op... Start Date: 12/23/20 Status: Ordered One-A-Day Women 1 tablet, By Mouth, Daily, 0 Refills, Maintenance, 10/06/16 16:47:26 Start Date: 10/06/16 Stop Date: 11/05/16 Status: Ordered oxyCODONE 5 mg oral tablet 5 mg, 1, tablet, By Mouth, Every 6 hours, PRN, # 6 tablet, Refills 0, Tot. Refills 0, Maintenance, for pain, 12/23/20 10:18:00 EDT, Route to Pharmacy Electronically, [facility]/pharmacy #[id number], Partial fill upon patient request if the prescription is for a sc... Start Date: 12/23/20 Status: Ordered Peak Flow Meter (Adult) See Instructions, # 1 kit, Maintenance, Use twice daily for asthma assessment, 10/27/19 17:05:00 EST, Compound, 157.48, cm, 10/27/19 8:43:00 EST, Height, 118.63, kg, 08/30/18 15:56:00 EST, Dry Weight Start Date: 10/27/19 Status: Ordered simethicone 80 mg oral tablet, chewable 80 mg, 1, tablet, Chew, 4 times a day, PRN, # 36 tablet, Refills 0, Tot. Refills 0, Maintenance, asneeded for gas, 12/23/20 10:18:00 EDT, Route to Pharmacy Electronically, [facility]/pharmacy #[id number], Partial fill upon patient request if the prescription is f... Start Date: 12/23/20 Status: Ordered Vitamin B-12 500 mcg oral tablet 1 tablet = 500 mcg, By Mouth, Daily, # 30 tablet, 4 Refills, Maintenance, 10/28/19 13:42:00 EST, Tablet, [facility]/pharmacy #[id number], 157.48, cm, 10/27/19 8:43:00 EST, Height, 118.63, kg, 08/30/18 15:56:00 EST, Dry Weight Start Date: 10/28/19 Status: Ordered Problem List Condition Effective Dates [...] 2 Active Morbid Obesity(Confirmed) Active Orthopnea(Confirmed) Active Encounter for tubal ligation counseling(Confirmed) Active PCOS (polycystic ovarian syndrome)(Confirmed) Active H/O [...]
--- OUTSIDE RECORDS SUMMARY | 2024-04-01 10:21 | XMS_ITS | Continuity of Care Document ---
Author Organization [facility] Address [address] [place] [phone]- Care Team Providers Care Travel Writer Name Role Phone Michael ROWELL, Robel Primary Care Physician Encounter [facility] [place] Date(s): 09/03/20 - 10/03/[address] [address]- Allergies, Adverse Reactions, Alerts Substance Reaction Severity Status Other Food Allergy almonds and isaiah nuts Active Other Environmental [...] 9:14:50, Compound Start Date: 08/21/17 Status: Ordered Flovent HFA 44 mcg/inh inhalation aerosol = 88 mcg, Inhalation, 2 times a day, # 1 each, 0 Refills, Maintenance, 10/10/19 16:40:00 EST, [facility]/pharmacy #[id number], 157.48, cm, 10/10/19 9:25:00 EST, Height, [...]
--- OUTSIDE RECORDS SUMMARY | 2024-04-01 10:21 | XMS_ITS | Continuity of Care Document ---
Author Organization [facility] ter Address [address] [place] [id number]- Care Team Providers Care Lead Oracle Developer Name Role Phone Robel Rodriguez MD Primary Care Physician Encounter [facility] [place] Date(s): 10/10/19 - 10/17/[address] [address] Attending Physician: Kanika Bose MD Allergies, Adverse Reactions, Alerts No Known Medication [...] Given Patient Refuses 1Admin Note: [facility] albuterol 0.083% inhalation solution 3 mL = 2.5 mg, Inhalation, Every 6 hours, PRN for wheezing, # 60 each, 5 Refills, Maintenance, 10/05/15 13:20:31, Solution, 3 mL Inhalation Every 6 hours,PRN:for wheezing Start Date: 10/05/15 Status: Ordered albuterol 90 mcg/inh inhalation powder 2 puffs, Inhalation, Every 6 hours, PRN as needed, # 1 each, 0 Refills, Maintenance, 08/08/19 8:23:08 EST, Powder, 2 puffs Inhalation Every 6 hours,PRN:as needed Start Date: 08/08/19 Status: Ordered albuterol CFC free 90 mcg/inh inhalation aerosol 2 puffs, Inhalation, 4 times a day, PRN for wheezing, # 18 Gm, 1 Refills, Maintenance, 12/03/15 8:20:06, Aerosol, 2 puffs Inhalation 4 times a day,PRN:for wheezing Start Date: 12/03/15 Status: Ordered Alcohol Pads See Instructions, # 120 each, Refills 5, Tot. Refills 5, Maintenance, use to test blood sugars 4x/day; Dx: w/ Hx of gastric bypass, 07/11/19 10:32:49 EDT, Compound Start Date: 07/11/19 Status: Ordered Compression Stockings surgical, knee high length 20-30 mm Hg, # 2 pair, Refills 1, Tot. Refills 1, Maintenance, wear daily remove bedtime, 08/21/17 9:14:50, Compound Start Date: 08/21/17 Status: Ordered ferrous sulfate 325 mg oral enteric coated tablet 325 mg, 1, tablet, By Mouth, 2 times a day, for 90 days, # 180 tablet, Refills 3, Tot. Refills 3, Hard Stop 05/16/20 8:01:36 EDT, 05/22/19 8:01:36 EDT, Route to Pharmacy Electronically, [facility] Start Date: 05/22/19 Stop Date: 05/16/20 Status: Ordered Flovent HFA 44 mcg/inh inhalation aerosol = 88 mcg, Inhalation, 2 times a day, # 1 each, 0 Refills, Maintenance, 10/10/19 16:40:00 EST, [facility]/pharmacy #[id number], 157.48, cm, 10/10/19 9:25:00 EST, Height, [...] EDT, Compound Start Date: 07/11/19 Status: Ordered Lovenox 30 mg/0.3 mL injectable solution = 120 mg, Subcutaneous Injection, Every 12 hours, # 30 application, 4 Refills, Maintenance, 06/13/19 13:10:58 EDT Start Date: 06/13/19 Status: Ordered One-A-Day Women 1 tablet, By Mouth, Daily, 0 Refills, Maintenance, 10/06/16 16:47:26 Start Date: 10/06/16 Stop Date: 11/05/16 Status: Ordered Peak Flow Meter (Adult) See Instructions, # 1 kit, Maintenance, Take daily or with asthma symptoms., 10/09/19 16:24:00 EST,Compound, 157.48, cm, 10/09/19 12:54:00 EST, Height, 118.63, kg, 08/30/18 15:56:00 EST, Dry Weight Start Date: 10/09/19 Status: Ordered Vitamin D3 2000 intl units oral capsule 2 capsule = 4,000 International_Units, By Mouth, Daily, # 60 capsule, 6 Refills, Maintenance, 10/10/19 16:40:00 EST, [facility]/pharmacy #[id number], 157.48, cm, 10/10/19 9:25:00 EST, Height, 118.63, kg, 08/30/1815:56:00 EST, Dry Weight Start Date: 10/10/19 Stop Date: 05/07/20 Status: Ordered Problem List Condition Effective Dates Status Health Status Inform ant Environmental and seasonal allergies(Confirmed) Active Anemia in (Confirmed) Active H/O Anxiety(Confirmed) Active Body mass index 30+ - obesity(Confirmed) 1 09/09/19 Active Constipation(Confirmed) Active Low vitamin D level(Confirmed) Active Bulging lumbar disc(Confirmed) 2 Active Genital herpes(Confirmed) Active Hx of gastric bypass(Confirmed) Active History of hemorrhage(Confirmed) Active History of stillbirth in pre gnant patient in second trimester, antepartum(Confirmed) Active H/O Migraine with aura(Confirmed) Active Asthma(Confirmed) 3 Active Morbid Obesity(Confirmed) Active Orthopnea(Confirmed) Active PCOS (polycystic ovarian syndrome)(Confirmed) Active H/O Renal cell carcinoma(Confirmed) 01/28/15 Active Request for sterilization(Confirmed) Active Superficial vein thrombosis( Confirmed) 2018 Active Varicose vein of leg(Confirmed) Active 1Problem added by Discern Expert 2Prior to knowledge of - pt reports she was on pain injection treatment 3managed by PCP 4Left leg Social History Social History Type Response Smoking Status Never smoker entered on: 02/12/14 Sex
--- OUTSIDE RECORDS SUMMARY | 2024-04-01 10:21 | XMS_ITS | Continuity of Care Document ---
Author Organization [facility] ter Address [address] [place] [address]- Care Team Providers Care Effervescent Salts Compounder Name Role Phone Robel Rodriguez MD Primary Care Physician [place] [facility] [place] 11/19/19 - 11/19/[address] [address]- [facility] Attending Physician: Andrews ROWELL, Nathaniel Allergies, Adverse Reactions, Alerts No Known Medication [...] 05/22/19 8:01:36 EDT, Route to Pharmacy Electronically, [facility] Start Date: 05/22/19 Stop Date: 05/16/20 Status: Ordered Flovent HFA 44 mcg/inh inhalation aerosol = 88 mcg, Inhalation, 2 times a day, # 1 each, 0 Refills, Maintenance, 10/10/19 16:40:00 EST, [facility]/pharmacy #[id number], 157.48, cm, 10/10/19 9:25:00 EST, [...] 13:10:58 EDT Start Date: 06/13/19 Status: Ordered MiraLax oral powder for reconstitution = 17 Gm, By Mouth, Daily, dissolve in water before taking, # 527 Gm, 0 Refills, Acute 01/29/20 9:48:00 EDT, 11/12/19 9:47:00 EST, REC Powder, [facility]/pharmacy #[id number], 17 Gm By Mouth Daily,Instr:dissolve in water before taking, 157.48, cm, 11/12/19 9:40:00... Start Date: 11/12/19 Stop Date: 01/29/20 Status: Ordered One-A-Day Women 1 tablet, By Mouth, Daily, 0 Refills, Maintenance, 10/06/16 16:47:26 Start Date: 10/06/16 Stop Date: 11/05/16 Status: Ordered Peak Flow Meter (Adult) See Instructions, # 1 kit, Maintenance, Use twice daily for asthma assessment, 10/27/19 17:05:00 EST, Compound, 157.48, cm, 10/27/19 8:43:00 EST, Height, 118.63, kg, 08/30/18 15:56:00 EST, Dry Weight Start Date: 10/27/19 Status: Ordered Valtrex 500 mg oral tablet 500 mg, 1, tablet, By Mouth, Every 12 hours, # 60 tablet, Refills 0, Tot. Refills 0, Acute 03/01/2012:10:00 EDT, 11/12/19 12:09:00 EST, [id number], 157.48, cm, 11/12/19 9:40:00 EST, Height, 118.63, kg, ... Start Date: 11/12/19 Stop Date: 03/01/20 Status: Ordered Vitamin B-12 500 mcg oral tablet 1 tablet = 500 mcg, By Mouth, Daily, # 30 tablet, 4 Refills, Maintenance, 10/28/19 13:42:00 EST, Tablet, [facility]/pharmacy #[id number], 157.48, cm, 10/27/19 8:43:00 EST, Height, 118.63, kg, 08/30/18 15:56:00 EST, Dry Weight Start Date: 10/28/19 Status: Ordered Vitamin D3 2000 intl units oral capsule 2 capsule = 4,000 International_Units, By Mouth, Daily, # 60 capsule, 6 Refills, Maintenance, 10/10/19 16:40:00 EST, [facility]/pharmacy #[id number], 157.48, cm, 10/10/19 9:25:00 EST, Height, 118.63, kg, 08/30/1815:56:00 EST, Dry Weight Start Date: 10/10/19 Stop Date: 05/07/20 Status: Ordered Problem List Condition Effective Dates Status Health Status Inform ant Environmental and seasonal allergies(Confirmed) Active Anemia in (Confirmed) Active H/O Anxiety(Confirmed) Active Body mass index 30+ - obesity(Confirmed) 1 09/09/19 Active Low vitamin D level(Confirmed) Active Bulging [...]
--- OUTSIDE RECORDS SUMMARY | 2024-04-01 10:21 | XMS_ITS | Continuity of Care Document ---
Author Organization [facility] Address [address] [place] [address]- Care Team Providers Care Railcar Switchman Name Role Phone Robel Rodriguez MD Primary Care Physician Encounter [facility] [place] Date(s): 01/26/20 - 02/02/20 [facility] [address] [place] [address]- [facility] Attending Physician: Nathaniel Sparrow MD Admitting Physician: Nathaniel Sparrow MD Referring Physician: Debbie Del Castillo NP Allergies, Adverse Reactions, Alerts No Known Medication [...] 1 Refills, Maintenance, 01/28/20 11:56:00 EDT, Tablet, [facility]/pharmacy #1130, 157.5, cm, 12/14/19 9:35:00 EDT, Height, 122, kg, 12/12/19 8:33:00 EDT, DryWeight Start Date: 01/28/20 Status: Ordered Flovent HFA 44 mcg/inh inhalation aerosol = 88 mcg, Inhalation, 2 times a day, # 1 each, 0 Refills, Maintenance, 10/10/19 16:40:00 EST, [facility]/pharmacy #1130, 157.48, cm, 10/10/19 9:25:00 EST, Height, [...] Compound Start Date: 07/11/19 Status: Ordered Lovenox 60 mg/0.6 mL injectable solution = 60 mg, Subcutaneous Injection, Daily, # 30 each, 2 Refills, Acute 04/29/20 8:56:00 EDT, 01/28/20 8:55:00 EDT, [facility]/pharmacy #[id number], 157.5, cm, 12/14/19 9:35:00 EDT, Height, 122, kg, 12/12/19 8:33:00 EDT, Dry Weight Start Date: 01/28/20 Stop Date: 04/29/20 Status: Ordered One-A-Day Women 1 tablet, By [...] 11/12/19 12:09:00 EST, Route to Pharmacy Electronically, [facility]/pharmacy #[id number], 157.48, cm, 11/12/19 9:40:00 EST, Height, 118.63, kg, ... Start Date: 11/12/19 Stop Date: 03/01/20 Status: Ordered Vitamin B-12 500 mcg oral tablet 1 tablet = 500 mcg, By Mouth, Daily, # 30 tablet, 4 Refills, Maintenance, 10/28/19 13:42:00 EST, Tablet, [facility]/pharmacy #1130, 157.48, cm, 10/27/19 8:43:00 EST, Height, [...] for sterilization(Confirmed) Active Superficial vein thrombosis( Confirmed) 3 2018 Active Varicose vein of leg(Confirmed) Active 1Prior to knowledge of - pt reports she was on pain injection treatment 2managed by PCP 3Left leg Social History Social History Type Response Smoking Status Never smoker entered on: 02/12/14 Sex
--- OUTSIDE RECORDS SUMMARY | 2024-04-01 10:21 | XMS_ITS | Continuity of Care Document ---
Author Organization [facility] Address [address] [place] [address] [address] [place] [address]- Care Team Providers Care Hat Band Attacher Name Role Phone Robel Rodriguez MD Primary Care Physician Encounter [facility] [place] Date(s): 01/05/23 - 01/12/[address] [place] [address]- Attending Physician: Remington Deutsch MD Referring Physician: Not on Staff, Referring MD Allergies, Adverse Reactions, Alerts Substance Reaction Severity [...] 12/23/20 10:18:00 EDT, Route to Pharmacy Electronically, [facility]/pharmacy #[id number], Partial fill upon patient request if [...] 9:14:50, Compound Start Date: 08/21/17 Status: Ordered [facility] ALCOHOL 70% PREP PADS [facility] ALCOHOL 70% PREP PADS, See Instructions, # [...] 0 Refills, Maintenance, 12/23/20 10:18:00 EDT, Tablet, [facility]/pharmacy #[id number], Partial fill upon patient request if the prescription is for a schedule II opioid drug., 157.48,... Start Date: 12/23/20 Status: Ordered Freestyle Lite Lancets See Instructions, # 120 each, Refills 5, Tot. Refills 5, Maintenance, use to test blood sugars 4x/day; Dx: w/ Hx of gastric bypass, 05/13/21 9:25:00 EDT, Compound, 157.48, cm, 05/13/21 8:42:00 EDT, Height, 133.8, kg, 12/23/20 9:53:00 EDT, DrSlava Start Date: 05/13/21 Status: Ordered Freestyle Lite [...] 12/23/20 10:18:00 EDT, Route to Pharmacy Electronically, [facility]/pharmacy #[id number], Partial fill upon patientrequest if the [...] 12/23/20 10:18:00 EDT, Route to Pharmacy Electronically, [facility]/pharmacy #[id number], Partial fill upon patient request if [...] 12/23/20 10:18:00 EDT, [id number] Partial fill upon patient request if the prescription is f... Start Date: 12/23/20 Status: Ordered Vitamin B-12 500 mcg oral tablet 1 tablet = 500 mcg, By Mouth, Daily, # 30 tablet, 4 Refills, Maintenance, 10/28/19 13:42:00 EST, Tablet, [facility]/pharmacy #1130, 157.48, cm, 10/27/19 8:43:00 EST, Height, 118.63, kg, 08/30/18 15:56:00 EST, Dry Weight Start Date: 10/28/19 Status: Ordered Problem List Condition Confirmation Course Effective Dates Status H ealth Status Informant Environmental and seasonal allergies Confirmed Active Anemia in Confirmed Active H/O Anxiety Confirmed Active Low vitamin D level Confirmed Active Bulging lumbar disc 1 Confirmed Active Genital herpes Confirmed Active Hx of gastric bypass Confirmed Active History of hemorrhage Confirmed Active History of stillbirth in patient in second trimester, antepartum Confirmed Active H/O Migraine with aura Confirmed Active Asthma 2 Confirmed Active Morbid Obesity Confirmed Active Orthopnea Confirmed Active Encounter for tubal ligation counseling Confirmed Active PCOS (polycystic ovarian syndrome) Confirmed Active H/O Renal cell carcinoma Confirmed 01/28/15 Active Severe obesity Confirmed Active Request for sterilization Confirmed Active Superficial vein thrombosis 3 Confirmed 2019 Active Varicose vein of leg Confirmed Active 1Prior to knowledge of - pt reports she was on pain injection treatment 2managed by PCP 3Left leg Vital Signs Most recent to oldest [Reference Range]: 1 Height 158 cm (01/05/23 1:43 PM) Weight 131.3 kg (01/05/23 1:43 PM) Pulse Rate [55-90 bpm] 58 bpm (01/05/23 1:43 PM) Body Mass Index [18.5-24.99 kg/m2] 52.6 kg/m2 *>HHI* (01/05/23 1:43 PM) Blood Pressure [90-138/55-84 mm Hg] 168/ 68mm Hg *H* (01/05/23 1:43 PM) Temperature [96.8-100.4 DegF] 97.1 DegF (01/05/23 1:43 PM) Blood pressure sites Arm, left (01/05/23 1:43 PM) Temperature Route Temporal (01/05/23 1:43 PM) Weight Obtained Via Standing scale (01/05/23 1:43 PM) Social History Social History Type Response Smoking Status Never smoker entered on: 02/12/14 Sex Patient Care team information Care Team Personnel Name: Hilda Neumann RN Position: [facility] RN Member Role: Primary Care Nurse Name: Malika Patel RN Position: [facility] RN Member Role: Primary Care Nurse Name: aLy Parrish RN Position: [facility] RN Member Role: Primary Care Nurse Name: Cesar Rodriguez RN Position: [facility] RN Member Role: Primary Care Nurse Name: Robel Rodriguez MD Position: [facility] Outreach Member Role: PCP Address: Address: [address] [place] [address]- Name: Rio Breen DO Position: [facility] DIRECTOR OF PSYCHIATRY MD Member Role: Lifetime DIRECTOR OF PSYCHIATRY Physician Address: Address: [address] [place] [address]'s [facility] [place] [address]- Name: Krystin Carter RN Position: [facility] [employer] Member Role: Primary Care Nurse Care Team Related Persons Name: EMELINA MOLINA Address: [address] [place] [address] Name: LUMA SEVILLA Address: [employer] Address: [address] [place] [address] [place] Name: LUMA BETANCOURT Address: [address] [place] [address] Name: LUMA BETANCOURT Address: [address] [place] [address] Name: CATHY MIGUEL Address: [address] [place] [address]
--- OUTSIDE RECORDS SUMMARY | 2024-04-01 10:21 | XMS_ITS | Continuity of Care Document ---
Author Organization [facility] Address [address] [place] [address]- Care Team Providers Care Sql Report Writer Name Role Phone Robel Rodriguez MD Primary Care Physician [place] [facility]16[place]21 [facility] [address] [place] [address] Attending Physician: Lawrence Lehman Admitting Physician: [...] 12/23/20 10:18:00 EDT, Route to Pharmacy Electronically, [facility]/pharmacy #[id number], Partial fill upon patient request [...] 9:14:50, Compound Start Date: 08/21/17 Status: Ordered docusate sodium 100 mg oral tablet 1 tablet = 100 mg, By Mouth, 2 times a day, PRN for constipation, # 60 tablet, 0 Refills, Maintenance, 12/23/20 10:18:00 EDT, Tablet, [facility]/pharmacy #1130, Partial fill upon patient request [...] EDT, Compound Start Date: 07/11/19 Status: Ordered ibuprofen 600 mg oral tablet 600 mg, 1, tablet, By Mouth, Every 6 hours, # 40 tablet, Refills 0, Tot. Refills 0, Maintenance, 12/23/20 10:18:00 EDT, Route to Pharmacy Electronically, [facility]/pharmacy #[id number], Partial fill upon patientrequest if [...] 12/23/20 10:18:00 EDT, Route to Pharmacy Electronically, [facility]/pharmacy #[id number], Partial fill upon patient request [...] 12/23/20 10:18:00 EDT, Route to Pharmacy Electronically, [facility]/pharmacy #[id number], Partial fill upon patient request if the prescription is f... Start Date: 12/23/20 Status: Ordered Vitamin B-12 500 mcg oral tablet 1 tablet = 500 mcg, By Mouth, Daily, # 30 tablet, 4 Refills, Maintenance, 10/28/19 13:42:00 EST, Tablet, [facility]/pharmacy #1130, 157.48, cm, 10/27/19 8:43:00 EST, [...]
--- OUTSIDE RECORDS SUMMARY | 2024-04-01 10:21 | XMS_ITS | Continuity of Care Document ---
Author Organization [facility] Address [address] [place] [address] [address] [place] [address]- Care Team Providers Care Attache Name Role Phone Robel Rodriguez MD Primary Care Physician Encounter [facility] [place] Date(s): 01/08/23 - 04/19/[address] [place] [address]- Attending Physician: Tres Alvarez MD Allergies, Adverse Reactions, Alerts Substance Reaction [...] 12/23/20 10:18:00 EDT, Route to Pharmacy Electronically, [id number], Partial fill upon patient request if [...] 9:14:50, Compound Start Date: 08/21/17 Status: Ordered [facility] ALCOHOL 70% PREP PADS [facility] ALCOHOL 70% PREP PADS, See Instructions, # [...] 0 Refills, Maintenance, 12/23/20 10:18:00 EDT, Tablet, [facility]/pharmacy #1130, Partial fill upon patient request if the prescription is for a schedule II opioid drug., 157.48,... Start Date: 12/23/20 Status: Ordered Freestyle Lite Lancets See Instructions, # 120 each, Refills 5, Tot. Refills 5, Maintenance, use to test blood sugars 4x/day; Dx: w/ Hx of gastric bypass, 05/13/21 9:25:00 EDT, Compound, 157.48, cm, 05/13/21 8:42:00 EDT, Height, 133.8, kg, 12/23/20 9:53:00 EDT, DrJuan Carlos.. Start Date: 05/13/21 Status: Ordered Freestyle Lite [...] EDT, Height, 133.8, kg, 12/23/20 9:53:00 EDT, DrJuan Carlos.. Start Date: 05/13/21 Status: Ordered ibuprofen 600 mg oral tablet 600 mg, 1, tablet, By Mouth, Every 6 hours, # 40 tablet, Refills 0, Tot. Refills 0, Maintenance, 12/23/20 10:18:00 EDT, Route to Pharmacy Electronically, [facility]/pharmacy #[id number], Partial fill upon patientrequest if the [...] 12/23/20 10:18:00 EDT, Route to Pharmacy Electronically, [facility]/pharmacy #1130, Partial fill upon patient request if [...] 12/23/20 10:18:00 EDT, [facility] Partial fill upon patient request if the prescription is f... Start Date: 12/23/20 Status: Ordered Vitamin B-12 500 mcg oral tablet 1 tablet = 500 mcg, By Mouth, Daily, # 30 tablet, 4 Refills, Maintenance, 10/28/19 13:42:00 EST, [facility] 157.48, cm, 10/27/19 8:43:00 EST, Height, [...] Team Personnel Name: Hilda Neumann RN Position: S RN Member Role: Primary Care Nurse Name: Malika aPtel RN Position: S RN Member Role: Primary Care Nurse Name: Lay Parrish RN Position: S RN Member Role: Primary Care Nurse Name: Cesar Rodriguez RN Position: S RN Member Role: Primary Care Nurse Name: Robel Rodriguez MD Position: [facility] Outreach Member Role: PCP Address: Address: [address] [place] [address]- [place] Name: Rio Breen DO Position: [facility] GASOLINE PUMP INSTALLER MD Member Role: Lifetime GASOLINE PUMP INSTALLER Physician Address: Address: [address] [place] [address]'s [facility] [employer] [place] [address]- [place] Name: Krystin Carter RN Position: [facility] Hospital Furnace Combustion Tester Member Role: Primary Care Nurse Care Team Related Persons Name: EMELINA MOLINA Address: home [address] [place] [address] Name: LUMA SEVILLA Address: [employer] Address: home [address] [place] [address] Address: temporary 0 Name: LUMA BETANCOURT Address: home [address] [place] [address] Name: LUMA BETANCOURT Address: home [address] [place] [address] Name: CATHY MIGUEL Address: home [address] [place] [address]
--- OUTSIDE RECORDS SUMMARY | 2024-04-01 10:21 | XMS_ITS | Continuity of Care Document ---
Author Organization [facility] Address [address] [place] [address]- Care Team Providers Care Celluloid Trimmer Name Role Phone Robel Rodriguez MD Primary Care Physician En[place] [facility] [place] Date(s): 10/27/19 - 01/23/20 [facility] [address] [place] [address]- [facility] Attending Physician: Nathaniel Sparrow MD Admitting Physician: [...] EST Start Date: 12/04/19 Status: Ordered albuterol 0.083% inhalation solution 3 mL = [...] 05/22/19 8:01:36 EDT, Route to Pharmacy Electronically, [facility] Start Date: 05/22/19 Stop Date: 05/16/20 Status: Ordered Flovent HFA 44 mcg/inh inhalation aerosol = 88 mcg, Inhalation, 2 times a day, # 1 each, 0 Refills, Maintenance, 10/10/19 16:40:00 EST, [facility]/pharmacy #1130, 157.48, cm, 10/10/19 9:25:00 EST, Height, [...] 9:48:00 EDT, 11/12/19 9:47:00 EST, REC Powder, [facility]/pharmacy #1130, 17 Gm By Mouth Daily,Instr:dissolve in [...] 11/12/19 12:09:00 EST, Route to Pharmacy Electronically, [facility]/pharmacy #1130, 157.48, cm, 11/12/19 9:40:00 EST, Height, 118.63, kg, ... Start Date: 11/12/19 Stop Date: 03/01/20 Status: Ordered Vitamin B-12 500 mcg oral tablet 1 tablet = 500 mcg, By Mouth, Daily, # 30 tablet, 4 Refills, Maintenance, 10/28/19 13:42:00 EST, Tablet, [facility]/pharmacy #1130, 157.48, cm, 10/27/19 8:43:00 EST, Height, 118.63, kg, 08/30/18 15:56:00 EST, Dry Weight Start Date: 10/28/19 Status: Ordered Vitamin D3 2000 intl units oral capsule 2 capsule = 4,000 International_Units, By Mouth, Daily, # 60 capsule, 6 Refills, Maintenance, 10/10/19 16:40:00 EST, [facility]/pharmacy #1130, 157.48, cm, 10/10/19 9:25:00 EST, Height, [...]
--- OUTSIDE RECORDS SUMMARY | 2024-04-01 10:21 | XMS_ITS | Continuity of Care Document ---
Author Organization [facility] Address [address] [place] [address] [address] [place] [address]- Care Team Providers Care Games Dealer Name Role Phone Robel Rodriguez MD Primary Care Physician Encounter [facility] [place] Date(s): 03/20/23 - 04/19/[address] [place], [place] [address] Attending Physician: AdmLawrence brock Admitting Physician: AdmtrLawrence Referring Physician: Admtr, Ricky8 Allergies, Adverse Reactions, Alerts Substance Reaction Severity [...] Refills 0, Maintenance, as needed for pain, 03/25/21 10:18:00 EDT, Route to Pharmacy Electronically, [facility]/pharmacy #1130, Partial fill upon patient request if [...] 9:14:50, Compound Start Date: 08/21/17 Status: Ordered [facility] ALCOHOL 70% PREP PADS [facility] ALCOHOL 70% PREP PADS, See Instructions, # [...] 0 Refills, Maintenance, 12/23/20 10:18:00 EDT, Tablet, [facility]/pharmacy #1130, Partial fill upon patient request if [...] 12/23/20 10:18:00 EDT, Route to Pharmacy Electronically, [facility]/pharmacy #1130, Partial fill upon patientrequest if the [...] 12/23/20 10:18:00 EDT, Route to Pharmacy Electronically, [facility]/pharmacy #1130, Partial fill upon patient request if [...] 12/23/20 10:18:00 EDT, Route to Pharmacy Electronically, [facility]/pharmacy #1130, Partial fill upon patient request if the prescription is f... Start Date: 12/23/20 Status: Ordered Vitamin B-12 500 mcg oral tablet 1 tablet = 500 mcg, By Mouth, Daily, # 30 tablet, 4 Refills, Maintenance, 10/28/19 13:42:00 EST, Tablet, [facility]/pharmacy #1130, 157.48, cm, 10/27/19 8:43:00 EST, Height, [...] Care Nurse Name: Malika Patel RN Position: [facility] RN Member Role: Primary Care Nurse Name: Lay Parrish RN Position: [facility] RN Member Role: Primary Care Nurse Name: Cesar Rodriguez RN Position: [facility] RN Member Role: Primary Care Nurse Name: Robel Rodriguez MD Position: [facility] Outreach Member Role: PCP Address: Address: [address] [place] [address]- Name: Rio Breen DO Position: [facility] BEVELER MD Member Role: Lifetime BEVELER Physician Address: Address: [address] [place] [address]'s [facility] [place] [address]- [place] Name: Krystin Carter RN Position: [facility] Hospital Name Plate Stamper Member Role: Primary Care Nurse Care Team Related Persons Name: EMELINA MOLINA Address: home [address] [place] [address] Name: LUMA SEVILLA Address: [employer] Address: home [address] [place] [address] Address: temporary 0 Name: LUMA BETANCOURT Address: home [address] [place] [address] Name: LUMA BETANCOURT Address: home [address] [place] [address] Name: CATHY MIGUEL Address: home [address] [place] [address]
--- OUTSIDE RECORDS SUMMARY | 2024-04-01 10:21 | XMS_ITS | Continuity of Care Document ---
Author Organization [facility] Address [address] [place] [address]- Care Team Providers Care Buffer Chrome Name Role Phone Robel Rodriguez MD Primary Care Physician En[place] [facility] [place] Date(s): 09/15/20 - 10/15/[address] [address] Attending Physician: AdmLawrence brock Admitting Physician: AdmtrLawrence Referring Physician: [id number] Allergies, Adverse Reactions, Alerts Substance Reaction Severity [...] each, 0 Refills, Maintenance, 10/10/19 16:40:00 EST, [facility]/pharmacy #1130, 157.48, cm, 10/10/19 9:25:00 EST, [...] Response Smoking Status Never smoker entered on: 5/15/14 Sex
--- OUTSIDE RECORDS SUMMARY | 2024-04-01 10:21 | XMS_ITS | Continuity of Care Document ---
Author Organization [facility] Address [address] [place] [address]- Care Team Providers Care Skin Therapist Name Role Phone Robel Rodriguez MD Primary Care Physician ( [phone] [place] [facility] [place] [facility] [place] 08/19/20 - 10/03/[address] [address] Attending Physician: Laure Reed MD Admitting Physician: Laure Reed MD Allergies, Adverse Reactions, Alerts Substance Reaction [...] each, 0 Refills, Maintenance, 10/10/19 16:40:00 EST, [facility]/pharmacy #1130, 157.48, cm, 10/10/19 9:25:00 EST, [...] 4 Refills, Maintenance, 10/28/19 13:42:00 EST, Tablet, [facility]/pharmacy #1130, 157.48, cm, 10/27/19 8:43:00 EST, Height, 118.63, kg, 08/30/18 15:56:00 EST, Dry Weight Start Date: 10/28/19 Status: Ordered Vitamin D3 2000 intl units oral capsule 2 capsule = 4,000 International_Units, By Mouth, Daily, # 60 capsule, 6 Refills, Maintenance, 05/07/20 16:40:00 EDT, [facility]/pharmacy #1130, 157.5, cm, 12/14/19 9:35:00 EDT, Height, [...] recent to oldest [Reference Range]: 1 Height 157.48 cm (08/25/20 9:33 AM) Weight 127.27 kg (08/25/20 9:33 AM) Body Mass Index [18.5-24.99] 51.32 *>HHI* (08/25/20 9:33 AM) Dry Weight 127.27 kg (08/25/20 9:33 AM) Weight Obtained Via Patient/family state d (08/25/20 9:33 AM) Social History Social History Type Response Smoking Status Never smoker entered on: 02/12/14 Sex
--- OUTSIDE RECORDS SUMMARY | 2024-04-01 10:21 | XMS_ITS | Continuity of Care Document ---
Author Organization [facility] Address [address] [place] [address]- Care Team Providers Care Dental Mechanic Name Role Phone Robel Rodriguez MD Primary Care Physician Encounter [facility] [place] Date(s): 12/23/20 - 03/13/21 [facility] [address] [address] Attending Physician: Thanh Gonzáles MD Admitting Physician: Thanh Gonzáles MD Referring Physician: Robel Rodriguez MD Allergies, Adverse Reactions, Alerts Substance Reaction [...] 12/23/20 10:18:00 EDT, Route to Pharmacy Electronically, [facility]/pharmacy #1130, Partial fill upon patient request [...] 0 Refills, Maintenance, 12/23/20 10:18:00 EDT, Tablet, [facility]/pharmacy #1130, Partial fill upon patient request [...] 12/23/20 10:18:00 EDT, Route to Pharmacy Electronically, [facility]/pharmacy #1130, Partial fill upon patientrequest if [...] 12/23/20 10:18:00 EDT, Route to Pharmacy Electronically, [facility]/pharmacy #1130, Partial fill upon patient request [...] 12/23/20 10:18:00 EDT, Route to Pharmacy Electronically, [facility]/pharmacy #1130, Partial fill upon patient request if the prescription is f... Start Date: 12/23/20 Status: Ordered Vitamin B-12 500 mcg oral tablet 1 tablet = 500 mcg, By Mouth, Daily, # 30 tablet, 4 Refills, Maintenance, 10/28/19 13:42:00 EST, Tablet, [facility]/pharmacy #1130, 157.48, cm, 10/27/19 8:43:00 EST, [...]
--- OUTSIDE RECORDS SUMMARY | 2024-04-01 10:21 | XMS_ITS | Continuity of Care Document ---
Author Organization [facility] Address [address] [place] [address]- Care Team Providers Care Husker Operator Name Role Phone Robel Rodriguez MD Primary Care Physician ( [phone] Encounter [facility] [place] Date(s): 02/11/21 - 03/13/21 [facility] [address] [place] [address] Attending Physician: Lawrence Lehman Admitting Physician: AdmLawrence brock Referring Physician: [id number] Allergies, Adverse Reactions, Alerts [...] 12/23/20 10:18:00 EDT, Route to Pharmacy Electronically, [facility]/pharmacy #1130, Partial fill upon patient [...] 0 Refills, Maintenance, 12/23/20 10:18:00 EDT, Tablet, [facility]/pharmacy #1130, Partial fill upon patient [...] 12/23/20 10:18:00 EDT, Route to Pharmacy Electronically, [facility]/pharmacy #1130, Partial fill upon patientrequest [...] 12/23/20 10:18:00 EDT, Route to Pharmacy Electronically, [facility]/pharmacy #1130, Partial fill upon patient [...] 12/23/20 10:18:00 EDT, Route to Pharmacy Electronically, [facility]/pharmacy #1130, Partial fill upon patient request if the prescription is f... Start Date: 12/23/20 Status: Ordered Vitamin B-12 500 mcg oral tablet 1 tablet = 500 mcg, By Mouth, Daily, # 30 tablet, 4 Refills, Maintenance, 10/28/19 13:42:00 EST, Tablet, [facility]/pharmacy #1130, 157.48, cm, 10/27/19 8:43:00 [...]
--- OUTSIDE RECORDS SUMMARY | 2024-04-01 10:21 | XMS_ITS | Continuity of Care Document ---
Author Organization [facility] Address [address] [place] [address]- Care Team Providers Care Steam Fitter Supervisor Name Role Phone Robel Rodriguez MD Primary Care Physician Encounter [facility] [place] Date(s): 02/24/20 - 03/26/[address] [address]- [facility] Attending Physician: Salvador Davila MD Admitting Physician: Salvador Davila MD Referring Physician: Salvador Davila MD Allergies, Adverse Reactions, Alerts No Known [...] 1 Refills, Maintenance, 01/28/20 11:56:00 EDT, Tablet, [facility]/pharmacy #1130, 157.5, cm, 12/14/19 9:35:00 EDT, [...] Acute 04/29/20 8:56:00 EDT, 01/28/20 8:55:00 EDT, [facility], 157.5, cm, 12/14/19 9:35:00 [...]
--- OUTSIDE RECORDS SUMMARY | 2024-04-01 10:21 | XMS_ITS | Continuity of Care Document ---
Author Organization [facility] Address [address] [place] [address] [address] [place] [address]- Care Team Providers Care Hatch Boss Name Role Phone Robel Rodriguez MD Primary Care Physician En[place] [facility] [place] Date(s): 06/24/20 - 07/01/[address] [place] [address]- [facility] Attending Physician: Brooke Gardner RD Referring Physician: Robel Rodriguez MD Allergies, Adverse Reactions, Alerts No Known [...] 1 Refills, Maintenance, 01/28/20 11:56:00 EDT, Tablet, [facility]/pharmacy #1130, 157.5, cm, 12/14/19 9:35:00 EDT, Height, 122, kg, 12/12/19 8:33:00 EDT, DryWeight Start Date: 01/28/20 Status: Ordered Flovent HFA 44 mcg/inh inhalation aerosol = 88 mcg, Inhalation, 2 times a day, # 1 each, 0 Refills, Maintenance, 10/10/19 16:40:00 EST, [facility]/pharmacy #1130, 157.48, cm, 10/10/19 9:25:00 EST, [...]
--- OUTSIDE RECORDS SUMMARY | 2024-04-01 10:21 | XMS_ITS | Continuity of Care Document ---
Author Organization [facility] Address [address] [place] [address]- Care Team Providers Care Fire Technician Name Role Phone Robel Rodriguez MD Primary Care Physician [place] [facility] [place]18[place] - 06/27/[address] [address]- [place] [facility] Attending Physician: Salvador Davila MD Admitting [...] 1 Refills, Maintenance, 01/28/20 11:56:00 EDT, Tablet, [facility]/pharmacy #1130, 157.5, cm, 12/14/19 9:35:00 EDT, Height, 122, kg, 12/12/19 8:33:00 EDT, DryWeight Start Date: 01/28/20 Status: Ordered Flovent HFA 44 mcg/inh inhalation aerosol = 88 mcg, Inhalation, 2 times a day, # 1 each, 0 Refills, Maintenance, 10/10/19 16:40:00 EST, [facility]/pharmacy #1130, 157.48, cm, 10/10/19 9:25:00 [...]
--- OUTSIDE RECORDS SUMMARY | 2024-04-01 10:21 | XMS_ITS | Continuity of Care Document ---
Author Organization [facility] Address [address] [place] [address]- Care Team Providers Care Bottom Turning Lathe Turner Name Role Phone Michael ROWELL, Robel Primary Care Physician ( [phone] [place] [facility] [place] 08/08/19 - 09/28/[address] [address]- [facility] Attending Physician: Not on Staff, Attending MD Allergies, Adverse Reactions, Alerts No Known Medication Allergies Substance Reaction Severity Status Other Environmental Allergy grass/trees-asthmaexac Active Immunizations Given and Recorded Vaccine Date Status Refusal Reason influenza virus vaccine, inactivated 07/11/19 Give n influenza virus vaccine, inactivated 07/02/15 Give n influenza virus vaccine, inactivated 1 06/23/14 Gi vianey influenza virus vaccine, inactivated 12/31/13 Give n pneumococcal 23-valent vaccine 08/31/18 Given Influenza Vaccine (oldterm) 08/01/16 Recorded tetanus/diphtheria/pertussis, acel(Tdap) 11/02/15 Given tetanus/diphtheria/pertussis, acel(Tdap) 12/23/13 Given Not Given Vaccine Date Status Refusal Reason [...] tablet 325 mg, 1, tablet, By Mouth, Daily, # 90 tablet, Refills 3, Tot. Refills 3, Maintenance, 05/16/20 8:01:36 EDT, Route to Pharmacy Electronically, [id number], [facility]/pharmacy #1130 Start Date: 05/16/20 Stop Date: 05/11/21 Status: Ordered ferrous sulfate 325 mg oral enteric coated tablet 325 mg, 1, tablet, By Mouth, Daily, for 90 days, # 90 tablet, Refills 3, Tot. Refills 3, Hard Stop 05/16/20 8:01:36 EDT, 05/22/19 8:01:36 EDT, Route to Pharmacy Electronically, [id number], [facility] Start Date: 05/22/19 Stop Date: 05/16/20 Status: Ordered Freestyle Lite Lancets See Instructions, [...] Date: 10/06/16 Stop Date: 11/05/16 Status: Ordered Unisom 25 mg oral tablet 1 tablet = 25 mg, By Mouth, Daily at bedtime, PRN for sleep, # 32 tablet, 3 Refills, Acute 06/01/2012:00:00 EDT, 06/13/19 13:13:16 EDT, Tablet Start Date: 06/13/19 Stop Date: 06/01/20 Status: Ordered Vitamin D3 2000 intl units oral capsule 1 capsule = 2,000 International_Units, By Mouth, Daily, # 30 capsule, 6 Refills, Maintenance, 05/22/19 8:02:09 EDT Start Date: 05/22/19 Stop Date: 12/18/19 Status: Ordered Problem List Condition Effective Dates Status Health Status Inform ant Environmental and seasonal allergies(Confirmed) Active H/O Anemia(Confirmed) Active H/O Anxiety(Confirmed) Active Body mass index 30+ - obesity(Confirmed) 1 09/09/19 Active Constipation(Confirmed) Active Low vitamin D level(Confirmed) Active Bulging lumbar disc(Confirmed) 2 Active Genital herpes(Confirmed) Active H/O hemorrhoids(Confirmed) Active Hx of gastric bypass(Confirmed) Active H/O varicose veins in leg(Confirmed) Active H/O Migraine with aura(Confirmed) Active Asthma(Confirmed) 3 Active Morbid Obesity(Confirmed) Active PCOS (polycystic ovarian syndrome)(Confirmed) Active H/O Renal cell carcinoma(Confirmed) 01/28/15 Active Superficial vein thrombosis( Confirmed) 2018 Active H/O Vitamin D Deficiency(Confirmed) Active Varicose vein of leg(Confirmed) Active 1Problem added by Discern Expert 2Prior to knowledge of - pt reports she was on pain injection treatment 3managed by PCP 4Left leg Social History Social History Type Response Smoking Status Never smoker entered on: 02/12/14 Sex
--- OUTSIDE RECORDS SUMMARY | 2024-04-01 10:21 | XMS_ITS | Continuity of Care Document ---
Author Organization [facility] Address [address] [place] [address] [address] [place] [address]- Care Team Providers Care Net Technical Architect Name Role Phone Robel Rodriguez MD Primary Care Physician En[place] [facility] [place] Date(s): 11/02/20 - 12/02/20 [facility] [address] [place] [address]- Allergies, Adverse Reactions, Alerts Substance Reaction Severity [...] each, 0 Refills, Maintenance, 10/10/19 16:40:00 EST, [facility], 157.48, cm, [...] 4 Refills, Maintenance, 10/28/19 13:42:00 EST, Tablet, [facility]/pharmacy #1130, 157.48, cm, 10/27/19 8:43:00 EST, Height, 118.63, kg, 08/30/18 15:56:00 EST, Dry Weight Start Date: 10/28/19 Status: Ordered Vitamin D3 2000 intl units oral capsule 2 capsule = 4,000 International_Units, By Mouth, Daily, # 60 capsule, 6 Refills, Maintenance, 05/07/20 16:40:00 EDT, [facility]/pharmacy #1130, 157.5, cm, 12/14/19 9:35:00 EDT, [...]
--- OUTSIDE RECORDS SUMMARY | 2024-04-01 10:21 | XMS_ITS | Continuity of Care Document ---
Author Organization [facility] Address [address] [place] [address] [address] [place] [address]- Care Team Providers Care Plumber Maintenance Name Role Phone Robel Rodriguez MD Primary Care Physician ( [phone] [place] [facility] [place] - 09/30/[address] [place] [address]- Attending Physician: Christo Dimas Referring Physician: Robel Rodriguez MD Allergies, Adverse [...]
--- OUTSIDE RECORDS SUMMARY | 2024-04-01 10:22 | XMS_ITS | Continuity of Care Document ---
Author Organization [facility] Address [address] [place] [address] [address] [place] [address]- Care Team Providers Care Picker And Sorter Load And Unload Name Role Phone Robel Rodriguez MD Primary Care Physician [place] [facility] [place] - 12/02/20 [facility] [address] [place] [address]- Allergies, Adverse Reactions, Alerts Substance Reaction Severity [...] Refills, Maintenance, 10/28/19 13:42:00 EST, Tablet, [facility]/pharmacy #1130, 157.48, cm, 10/27/19 8:43:00 EST, Height, 118.63, kg, 08/30/18 15:56:00 EST, Dry Weight Start Date: 10/28/19 Status: Ordered Vitamin D3 2000 intl units oral capsule 2 capsule = 4,000 International_Units, By Mouth, Daily, # 60 capsule, 6 Refills, Maintenance, 05/07/20 16:40:00 EDT, [facility]/pharmacy #1130, 157.5, cm, 12/14/19 9:35:00 EDT, Height, [...]
--- OUTSIDE RECORDS SUMMARY | 2024-04-01 10:22 | XMS_ITS | Continuity of Care Document ---
Author Organization [facility] Address [address] [place] [address] [address] [place] [address]- Care Team Providers Care Lease Examiner Name Role Phone Robel Rodriguez MD Primary Care Physician ( [phone] Encounter [facility] [place] Date(s): 10/27/20 - 11/26/[address] [place] [address]- Allergies, Adverse Reactions, Alerts Substance Reaction Severity [...] Refills, Maintenance, 10/28/19 13:42:00 EST, Tablet, [facility]/pharmacy #1130, 157.48, cm, 10/27/19 8:43:00 EST, Height, 118.63, kg, 08/30/18 15:56:00 EST, Dry Weight Start Date: 10/28/19 Status: Ordered Vitamin D3 2000 intl units oral capsule 2 capsule = 4,000 International_Units, By Mouth, Daily, # 60 capsule, 6 Refills, Maintenance, 05/07/20 16:40:00 EDT, [facility]/pharmacy #1130, 157.5, cm, 12/14/19 9:35:00 EDT, Height, [...]
--- OUTSIDE RECORDS SUMMARY | 2024-04-01 10:22 | XMS_ITS | Continuity of Care Document ---
Author Organization [facility] Address [address] [place] [address]- Care Team Providers Care Build And Release Manager Name Role Phone Michael ROWELL, Robel Primary Care Physician [place] [facility] [place] 03/16/21 - 04/15/21 [facility] Care [address] [place] [address] Allergies, Adverse Reactions, Alerts Substance Reaction Severity [...] 10:18:00 EDT, Route to Pharmacy Electronically, [facility]/pharmacy #[id number], Partial fill upon patient request if [...] Compound Start Date: 08/21/17 Status: Ordered [facility] ALCOHOL 70% PREP PADS [facility] ALCOHOL 70% PREP PADS, See Instructions, # [...] Refills, Maintenance, 12/23/20 10:18:00 EDT, Tablet, [facility]/pharmacy #1130, Partial fill upon patient request if [...] 10:18:00 EDT, Route to Pharmacy Electronically, [facility]/pharmacy #1130, Partial fill upon patientrequest if the [...] 10:18:00 EDT, Route to Pharmacy Electronically, [facility]/pharmacy #1130, Partial fill upon patient request if [...]
--- OUTSIDE RECORDS SUMMARY | 2024-04-01 10:22 | XMS_ITS | Continuity of Care Document ---
Author Organization [facility] Address [address] [place] [address]- Care Team Providers Care Door Technician Name Role Phone Robel Rodriguez MD Primary Care Physician ( [phone] [place] [facility] [place] 12/12/22 - 01/11/23 [facility] [address] [place] [address] Allergies, Adverse Reactions, Alerts Substance Reaction Severity [...] 9:14:50, Compound Start Date: 08/21/17 Status: Ordered [facility] AL[facility]OL 70% PREP PADS [facility] AL[facility]OL 70% PREP PADS, See Instructions, # [...] 0 Refills, Maintenance, 12/23/20 10:18:00 EDT, Tablet, [facility]/pharmacy #1130, Partial fill upon patient request [...] EDT, Height, 133.8, kg, 12/23/20 9:53:00 EDT, . Start Date: 05/13/21 Status: Ordered ibuprofen 600 mg oral tablet 600 mg, 1, tablet, By Mouth, Every 6 hours, # 40 tablet, Refills 0, Tot. Refills 0, Maintenance, 12/23/20 10:18:00 EDT, Route to Pharmacy Electronically, [facility]/pharmacy #1130, Partial fill upon patientrequest if [...] 12/23/20 10:18:00 EDT, Route to Pharmacy Electronically, [facility]/pharmacy #1130, Partial fill upon patient request [...] 12/23/20 10:18:00 EDT, [id number] Partial fill upon patient request if the prescription is f... Start Date: 12/23/20 Status: Ordered Vitamin B-12 500 mcg oral tablet 1 tablet = 500 mcg, By Mouth, Daily, # 30 tablet, 4 Refills, Maintenance, 10/28/19 13:42:00 EST, Tablet, [facility]/pharmacy #1130, 157.48, cm, 10/27/19 8:43:00 EST, [...] Team Personnel Name: Hilda Neumann RN Position: [facility] RN Member Role: Primary Care Nurse Name: Malika Patel RN Position: [facility] RN Member Role: Primary Care Nurse Name: Lay Parrish RN Position: [facility] RN Member Role: Primary Care Nurse Name: Cesar Rdoriguez RN Position: [facility] RN Member Role: Primary Care Nurse Name: Robel Rodriguez MD Position: [facility] Outreach Member Role: PCP Address: Address: [address] [place] [address]- [place] Name: Rio Breen DO Position: [facility] FIRE MANAGEMENT SPECIALIST MD Member Role: Lifetime FIRE MANAGEMENT SPECIALIST Physician Address: Address: [address] [place] [address]'s Health Information Technology [place] [address]- [place] Name: Krystin Carter RN Position: [facility] Hospital Child Development Teacher Member Role: Primary Care Nurse Care Team Related Persons Name: EMELINA MOLINA Address: home [address] [place] [address] Name: LUMA SEVILLA Address: [employer] Address: home [address] [place] [address] Name: LUMA BETACNOURT Address: home [address] [place] [address] Name: LUMA BETANCOURT Address: home [address] [place] [address] Name: CATHY MIGUEL Address: home [address] [place] [address]
--- OUTSIDE RECORDS SUMMARY | 2024-04-01 10:22 | XMS_ITS | Continuity of Care Document ---
Author Organization [facility] Address [address] [place] [address]- Care Team Providers Care Religious Leader Name Role Phone Michael ROWELL, Robel Primary Care Physician Encounter [facility] Date(s): 05/30/23 - 06/29/23 [facility] [address] [place] [address] Allergies, Adverse Reactions, Alerts Substance Reaction Severity [...] 08/31/18 Given Influenza Vaccine (oldterm) 08/01/16 Recorded 1Admin Note: [facility] Medic[facility] acarbose 25 mg oral tablet 1 tablet = 25 mg, By Mouth, 3 times a day, 20 minute before each meal, # 90 tablet, 5 Refills, Maintenance, 05/30/23 13:11:00 EDT, Tablet, [facility], 158, cm, 05/30/23 12:41:00 EDT, Height, 134.8, kg, 02/08/22 13:15:00 EDT, Dry Weight Start Date: 05/30/23 Status: Ordered acetaminophen 325 mg oral tablet 650 mg, 2, tablet, By Mouth, Every 4 hours, PRN, # 50 tablet, Refills 0, Tot. Refills 0, Maintenance, as needed for pain, 12/23/20 10:18:00 EDT, Route to Pharmacy Electronically, [facility]/pharmacy #[id number], Partial fill upon patient request [...] 9:14:50, Compound Start Date: 08/21/17 Status: Ordered [facility] ALCOHOL 70% PREP PADS [facility] ALCOHOL 70% PREP PADS, See Instructions, [...] 0 Refills, Maintenance, 12/23/20 10:18:00 EDT, Tablet, [facility]/pharmacy #1130, Partial fill upon patient request if the prescription is for a schedule II opioid drug., 157.48,... Start Date: 12/23/20 Status: Ordered FreeStyle Salomón 2 [place] FreeStyle Salomón 2 [place], See Instructions, # 1 each, Refills 0, Tot. Refills 0, Maintenance, as asdirected for diabetes control, 05/30/23 13:16:00 EDT, Supply, 158, cm, 05/30/23 12:41:00 EDT, Height, 134.8, kg, 02/08/22 13:15:00 EDT, Dry Weight Start Date: 05/30/23 Status: Ordered FreeStyle Salomón 2 Sensor FreeStyle Salomón 2 Sensor, See Instructions, # 6 each, Refills 3, Tot. Refills 3, Maintenance, as asdirected for diabetes control, 05/30/23 13:16:00 EDT, Supply, 158, cm, 05/30/23 12:41:00 EDT, Height, 134.8, kg, 02/08/22 13:15:00 EDT, Dry Weight Start Date: 05/30/23 Status: Ordered Freestyle Lite Lancets See Instructions, # 120 each, Refills 5, Tot. Refills 5, Maintenance, use to test blood sugars 4x/day; Dx: w/ Hx of gastric bypass, 05/13/21 9:25:00 EDT, Compound, 157.48, cm, 05/13/21 8:42:00 EDT, Height, 133.8, kg, 12/23/20 9:53:00 EDT, .. Start Date: 05/13/21 Status: Ordered Freestyle Lite [...] 10:18:00 EDT, Route to Pharmacy Electronically, [facility]/pharmacy #1130, Partial fill upon patientrequest if [...] 10:18:00 EDT, Route to Pharmacy Electronically, [facility]/pharmacy #1130, Partial fill upon patient request [...] 10:18:00 EDT, Route to Pharmacy Electronically, [facility]/pharmacy #[id number], Partial fill upon patient request [...] Active PCOS (polycystic ovarian syndrome) Confirmed Active Hypoglycemia after GI (gastrointestinal) surgery Confirmed Active H/O Renal cell carcinoma Confirmed [...] Team Personnel Name: Hilda Neumann RN Position: [facility] RN Member Role: Primary Care Nurse Name: Malika Patel RN Position: [facility] RN Member Role: Primary Care Nurse Name: Lay Parrish RN Position: [facility] RN Member Role: Primary Care Nurse Name: Cesar Rodriguez RN Position: [facility] RN Member Role: Primary Care Nurse Name: Robel Rodriugez MD Position: [facility] Outreach Member Role: PCP Address: Address: [address] [place] [address]- Name: Rio Breen DO Position: [facility] BUSINESS PLANNER MD Member Role: Lifetime BUSINESS PLANNER Physician Address: Address: [address] [place] [address]'s Health Wide Area Network [place] [address]- Name: Nayana Pagan RN Position: [facility] SN RN Member Role: Primary Care Nurse Name: Krystin Carter RN Position: [facility] Hospital Punch Machine Hand Member Role: Primary Care Nurse Care Team Related Persons Name: EMELINA MOLINA Address: home [address] [place] [address] Name: LUMA SEVILLA Address: [employer] Address: home [address] [place] [address] [place] Address: temporary 0 Name: LUMA BETANCOURT Address: home [address] [place] [address] Name: LUMA BETANCOURT Address: home [address] [place] [address] Name: CATHY MIGUEL Address: [address] [place] [address]
--- OUTSIDE RECORDS SUMMARY | 2024-04-01 10:22 | XMS_ITS | Continuity of Care Document ---
Author Organization [facility] Address [address] [place] [address]- Care Team Providers Care Neonatal Icu Coordinator Name Role Phone Robel Rodriguez MD Primary Care Physician En[place] [facility] [place] Date(s): 12/08/20 - 01/07/[address] [address] Attending Physician: AdmLawrence brock Admitting Physician: AdmtrLawrence Referring Physician: Admtr, Ar8 Allergies, Adverse Reactions, Alerts Substance Reaction Severity [...] 12/23/20 10:18:00 EDT, Route to Pharmacy Electronically, [facility]/pharmacy #[id number], Partial fill upon patient request [...] 0 Refills, Maintenance, 12/23/20 10:18:00 EDT, Tablet, [facility]/pharmacy #1130, Partial fill upon patient request [...] 12/23/20 10:18:00 EDT, Route to Pharmacy Electronically, [facility]/pharmacy #1130, Partial fill upon patientrequest if [...] 12/23/20 10:18:00 EDT, Route to Pharmacy Electronically, [facility]/pharmacy #1130, Partial fill upon patient request [...] 12/23/20 10:18:00 EDT, Route to Pharmacy Electronically, [facility]/pharmacy #1130, Partial fill upon patient request if the prescription is f... Start Date: 12/23/20 Status: Ordered Vitamin B-12 500 mcg oral tablet 1 tablet = 500 mcg, By Mouth, Daily, # 30 tablet, 4 Refills, Maintenance, 10/28/19 13:42:00 EST, Tablet, [facility]/pharmacy #1130, 157.48, cm, 10/27/19 8:43:00 EST, [...]
--- OUTSIDE RECORDS SUMMARY | 2024-04-01 10:22 | XMS_ITS | Continuity of Care Document ---
Author Organization [facility] Address [address] [place] [address]- Care Team Providers Care Cherry Picker Operator Name Role Phone Robel Rodriguez MD Primary Care Physician [place] [facility] [id number] Date(s): 11/06/23 - 03/05/24 [facility] Endocr[facility]ology and Diabetes [address] [place] [address] Attending Physician: Diane Phelps MD Admitting Physician: Diane Phelps MD Referring Physician: Robel Rodriguez MD Allergies, Adverse Reactions, Alerts Substance Reaction Severity Status Other Food Allergy throat closure almonds and isaiah nuts Active Other Environmental Allergy grass/trees-asthmaexac Active Immunizations Given and Recorded Vaccine Date Status Refusal Reason influenza virus vaccine, inactivated 07/24/23 Getachew rded influenza virus vaccine, inactivated 08/01/22 Getachew rded influenza virus vaccine, inactivated 07/09/21 Getachew rded influenza virus vaccine, inactivated 07/21/20 Give n influenza virus vaccine, inactivated 07/11/19 Give n influenza virus vaccine, inactivated 06/01/17 Getachew rded influenza virus vaccine, inactivated 08/14/16 Getachew rded influenza virus vaccine, inactivated 07/02/15 Give n influenza virus vaccine, inactivated 1 06/23/14 Gi vianey influenza virus vaccine, inactivated 12/31/13 Give n [id number] 12y+ bivalent booster vax 08/01/22 Recorded SARS-CoV-2 (COVID-19) mRNA BNT-162b2 vac 07/09/21 Recorded SARS-CoV-2 (COVID-19) mRNA BNT-162b2 vac 01/06/21 Recorded SARS-CoV-2 (COVID-19) mRNA BNT-162b2 vac 12/16/20 Recorded tetanus/diphtheria/pertussis, acel(Tdap) 10/10/19 Given tetanus/diphtheria/pertussis, acel(Tdap) 06/01/17 Recorded tetanus/diphtheria/pertussis, acel(Tdap) 11/02/15 Given tetanus/diphtheria/pertussis, acel(Tdap) [...] Dry Weight Start Date: 05/30/23 Status: Ordered Problem List Condition Confirmation Course [...] Care Nurse Name: Malika Patel RN Position: S RN Member Role: Primary Care Nurse Name: Lay Parrish RN Position: S RN Member Role: Primary Care Nurse Name: Cesar Rodriguez RN Position: [facility] RN Member Role: Primary Care Nurse Name: Robel Rodriguez MD Position: [facility] Outreach Member Role: PCP Address: Address: [address] [place] [address]- [place] Name: Rio Breen DO Position: [facility] CHAUFFEUR MD Member Role: Lifetime CHAUFFEUR Physician Address: Address: [address] [place] [address]- [place] Name: Nayana Pagan RN Position: [facility] Nurse Member Role: Primary Care Nurse Name: Krystin Carter RN Position: [facility] Hospital Tipple Repairer Member Role: Primary Care Nurse Care Team Related Persons Name: EMELINA MOLINA Address: home [address] [place] [address] Name: LUMA SEVILLA Address: [employer] Address: [address] [place] [address] Address: temporary 0 Name: LUMA BETANCOURT Address: home [address] [place] [address] Name: LUMA BETANCOURT Address: home [address] [place] [address] Name: CATHY MIGUEL Address: [address] [place] [address]
--- OUTSIDE RECORDS SUMMARY | 2024-04-01 10:22 | XMS_ITS | Continuity of Care Document ---
Author Organization [facility] Address [address] [place] [address] [address] [place] [address]- Care Team Providers Care Schedule Checker Name Role Phone Robel Rodriguez MD Primary Care Physician ( [phone] Encounter [facility] [place] Date(s): 12/17/20 - 01/16/[address] [place] [address]- Allergies, Adverse Reactions, Alerts Substance Reaction Severity [...] 0 Refills, Maintenance, 12/23/20 10:18:00 EDT, Tablet, [facility], Partial fill upon patient request [...]
--- OUTSIDE RECORDS SUMMARY | 2024-04-01 10:22 | XMS_ITS | Continuity of Care Document ---
Author Organization [facility] hospital Address [address] [place] [address] ve [address] [place] [address]- Care Team Providers Care Certified Phlebotomy Technician Name Role Phone Robel Rodriguez MD Primary Care Physician [place] [facility] [place](s): 12/03/20 - 01/02/[address] [place], [place] [address] Attending Physician: Lawrence Lehman Admitting Physician: AdmtrLawrence Referring Physician: Admtr, [id number] [...] 03/25/21 10:18:00 EDT, Route to Pharmacy Electronically, [facility]/pharmacy #1130, Partial fill upon patient request [...] 0 Refills, Maintenance, 12/23/20 10:18:00 EDT, Tablet, [facility]/pharmacy #1130, Partial fill upon patient request [...] 12/23/20 10:18:00 EDT, Route to Pharmacy Electronically, [facility]/pharmacy #1130, Partial fill upon patientrequest if [...] 12/23/20 10:18:00 EDT, Route to Pharmacy Electronically, [facility]/pharmacy #1130, Partial fill upon patient request [...] 12/23/20 10:18:00 EDT, Route to Pharmacy Electronically, [facility]/pharmacy #1130, Partial fill upon patient request if the prescription is f... Start Date: 12/23/20 Status: Ordered Vitamin B-12 500 mcg oral tablet 1 tablet = 500 mcg, By Mouth, Daily, # 30 tablet, 4 Refills, Maintenance, 10/28/19 13:42:00 EST, Tablet, [facility]/pharmacy #1130, 157.48, cm, 10/27/19 8:43:00 EST, [...]
--- OUTSIDE RECORDS SUMMARY | 2024-04-01 10:22 | XMS_ITS | Continuity of Care Document ---
Author Organization [facility] Address [address] [place] [address]- Care Team Providers Care Membership Administrator Name Role Phone Robel Rodriguez MD Primary Care Physician Encounter [facility] [place] Date(s): 10/27/19 - 01/16/[facility] [address] [place] [address]- [facility] Attending Physician: Nathaniel Sparrow MD Admitting Physician: [...] 05/22/19 8:01:36 EDT, Route to Pharmacy Electronically, [facility] Start Date: 05/22/19 Stop Date: 05/16/20 Status: Ordered Flovent HFA 44 mcg/inh inhalation aerosol = 88 mcg, Inhalation, 2 times a day, # 1 each, 0 Refills, Maintenance, 10/10/19 16:40:00 EST, [facility]/pharmacy #1130, 157.48, cm, 10/10/19 9:25:00 [...] 9:48:00 EDT, 11/12/19 9:47:00 EST, REC Powder, [facility]/pharmacy #1130, 17 Gm By Mouth [...] 11/12/19 12:09:00 EST, Route to Pharmacy Electronically, [facility]/pharmacy #1130, 157.48, cm, 11/12/19 9:40:00 EST, Height, 118.63, kg, ... Start Date: 11/12/19 Stop Date: 03/01/20 Status: Ordered Vitamin B-12 500 mcg oral tablet 1 tablet = 500 mcg, By Mouth, Daily, # 30 tablet, 4 Refills, Maintenance, 10/28/19 13:42:00 EST, Tablet, [facility]/pharmacy #1130, 157.48, cm, 10/27/19 8:43:00 EST, Height, 118.63, kg, 08/30/18 15:56:00 EST, Dry Weight Start Date: 10/28/19 Status: Ordered Vitamin D3 2000 intl units oral capsule 2 capsule = 4,000 International_Units, By Mouth, Daily, # 60 capsule, 6 Refills, Maintenance, 10/10/19 16:40:00 EST, [facility]/pharmacy #1130, 157.48, cm, 10/10/19 9:25:00 [...]
--- OUTSIDE RECORDS SUMMARY | 2024-04-01 10:22 | XMS_ITS | Continuity of Care Document ---
Author Organization [facility] Address [address] [place] [address]- Care Team Providers Care Flap Presser Name Role Phone Michael ROWELL, Robel Primary Care Physician [place] [facility] [place](s): 09/02/20 - 10/02/[address] [id number] Allergies, Adverse Reactions, Alerts Substance Reaction [...]
--- OUTSIDE RECORDS SUMMARY | 2024-04-01 10:22 | XMS_ITS | Continuity of Care Document ---
Author Organization [facility] Address [address] [place] [address]- Care Team Providers Care Electromedical Equipment Technician Name Role Phone Michael ROWELL, Robel Primary Care Physician ( [phone] Encounter [facility] Date(s): 07/07/20 - 08/06/[address] [id number] Allergies, Adverse Reactions, Alerts No Known Medication [...] 1 Refills, Maintenance, 01/28/20 11:56:00 EDT, Tablet, [facility]/pharmacy #1130, 157.5, cm, 12/14/19 9:35:00 EDT, Height, 122, kg, 12/12/19 8:33:00 EDT, DryWeight Start Date: 01/28/20 Status: Ordered Flovent HFA 44 mcg/inh inhalation aerosol = 88 mcg, Inhalation, 2 times a day, # 1 each, 0 Refills, Maintenance, 10/10/19 16:40:00 EST, [facility]/pharmacy #1130, 157.48, cm, 10/10/19 9:25:00 EST, [...]
--- OUTSIDE RECORDS SUMMARY | 2024-04-01 10:22 | XMS_ITS | Continuity of Care Document ---
Author Organization [facility] Address [address] [place] [address] [address] [place] [address]- Care Team Providers Care Superintendent Renting Managing Name Role Phone Robel Rodriguez MD Primary Care Physician Encounter [facility] [place] Date(s): 09/01/20 - 09/08/[address] [place] [address]- Attending Physician: Knee RD, Brooke Allergies, Adverse Reactions, Alerts Substance Reaction Severity [...] 4 Refills, Maintenance, 10/28/19 13:42:00 EST, Tablet, [facility]/pharmacy #1130, 157.48, cm, 10/27/19 8:43:00 [...]
--- OUTSIDE RECORDS SUMMARY | 2024-04-01 10:22 | XMS_ITS | Continuity of Care Document ---
Author Organization [facility] ter Address [address] [place] [address]- Care Team Providers Care Beer Cooler Name Role Phone Robel Rodriguez MD Primary Care Physician ( [phone] [place] [facility] [place] - 12/14/[address] [address]- [facility] Discharge Disposition: A-D/C Home Attending Physician: Mechelle Cortez MD Admitting Physician: Mechelle Cortez MD Referring Physician: Kanika Bose MD Allergies, Adverse Reactions, [...] 05/22/19 8:01:36 EDT, Route to Pharmacy Electronically, [facility] Start Date: 05/22/19 Stop Date: 05/16/20 Status: Ordered Flovent HFA 44 mcg/inh inhalation aerosol = 88 mcg, Inhalation, 2 times a day, # 1 each, 0 Refills, Maintenance, 10/10/19 16:40:00 EST, [facility]/pharmacy #1130, 157.48, cm, 10/10/19 9:25:00 EST, Height, 118.63, kg, 11/30/18 15:56:00 EST, Dry Weight Start Date: 10/10/19 [...] 9:48:00 EDT, 11/12/19 9:47:00 EST, REC Powder, [facility]/pharmacy #1130, 17 Gm By Mouth Daily,Instr:dissolve [...] 11/12/19 12:09:00 EST, Route to Pharmacy Electronically, [facility]/pharmacy #1130, 157.48, cm, 11/12/19 9:40:00 EST, Height, 118.63, kg, ... Start Date: 11/12/19 Stop Date: 03/01/20 Status: Ordered Vitamin B-12 500 mcg oral tablet 1 tablet = 500 mcg, By Mouth, Daily, # 30 tablet, 4 Refills, Maintenance, 10/28/19 13:42:00 EST, Tablet, [facility]/pharmacy #1130, 157.48, cm, 10/27/19 8:43:00 EST, Height, 118.63, kg, 08/30/18 15:56:00 EST, Dry Weight Start Date: 10/28/19 Status: Ordered Vitamin D3 2000 intl units oral capsule 2 capsule = 4,000 International_Units, By Mouth, Daily, # 60 capsule, 6 Refills, Maintenance, 10/10/19 16:40:00 EST, [facility]/pharmacy #1130, 157.48, cm, 10/10/19 9:25:00 EST, [...] Most recent to oldest [Reference Range]: 1 2 3 Height 157.5 cm (12/14/19 7:45 AM) 157.5 cm (12/14/19 12:00 AM) 157.5 cm (12/13/19 2:04 PM) Weight 118.2 kg (12/14/19 6:45 AM) 122 kg (12/12/19 9:03 PM) 122 kg (12/12/19 8:30 AM) Oxygen Saturation [94-100 %] 99 % (12/14/19 7:45 AM) 99 % (12/14/19 12:00 AM) 100 % (12/13/19 3:30 AM) Pulse Rate [55-90 bpm] 64 bpm (12/14/19 7:45 AM) 59 bpm (12/14/19 12:00 AM) 68 bpm (12/13/19 2:04 PM) Body Mass Index [18.5-24.99] 49.18 *>HHI* (12/12/19 8:30 AM) Blood Pressure [90-138/55-84 mm Hg] 104/53mm Hg (12/14/19 7:45 AM) 104/56mm Hg (12/14/19 12:00 AM) 103/60mm Hg (12/13/19 2:04 PM) Respiratory Rate [16-30 br/min] 22 br/min (12/14/19 7:45 AM) 20 br/min (12/14/19 5:13 AM) 20 br/min (12/14/19 5:13 AM) Temperature [96.8-100.4 DegF] 97.8 DegF (12/14/19 7:45 AM) 97.8 DegF (12/14/19 12:00 AM) 97.8 DegF (12/13/19 2:04 PM) Mode of Delivery (Oxygen) Room air (12/14/19 7:45 AM) Room air (12/14/19 12:00 AM) Room air (12/13/19 3:30 AM) Blood pressure sites Arm, left (12/14/19 12:00 AM) Arm, left (12/13/19 2:04 PM) Arm, right (12/13/19 8:26 AM) Temperature Route Oral (12/14/19 7:45 AM) Oral (12/14/19 12:00 AM) Oral (12/13/19 2:04 PM) Dry Weight 122 kg (12/12/19 8:30 AM) Weight Obtained Via Standing scale (12/14/19 6:45 AM) Patient/family stated (12/12/19 8:30 AM) Dry Weight Obtained Via Patient/family s tated (12/12/19 8:30 AM) Sensory deficits None (12/12/19 8:30 AM) None (12/12/19 8:30 AM) Mobility assistance Independent (12/12/19 8:30 AM) Social History Social History Type Response Smoking Status Never smoker entered on: 02/12/14 Sex
--- OUTSIDE RECORDS SUMMARY | 2024-04-01 10:22 | XMS_ITS | Continuity of Care Document ---
Author Organization [facility] Address [address] [place] [address]- Care Team Providers Care Port Patrol Officer Name Role Phone Robel Rordiguez MD Primary Care Physician Encounter [facility] [place] Date(s): 10/14/19 - 10/24/19 [facility] [address] [place] [address]- [facility] Attending Physician: Lawrence Lehman Admitting Physician: Lawrence Lehman Referring Physician: AdmtrLawrence Allergies, Adverse Reactions, Alerts No Known Medication [...] 05/22/19 8:01:36 EDT, Route to Pharmacy Electronically, [facility] 3 Start Date: 05/22/19 Stop Date: 05/16/20 [...] capsule, 6 Refills, Maintenance, 10/10/19 16:40:00 EST, [id number], [...]
--- OUTSIDE RECORDS SUMMARY | 2024-04-01 10:22 | XMS_ITS | Continuity of Care Document ---
Author Organization [facility] Address [address] [id number]- Care Team Providers Care Human Services Instructor Name Role Phone Robel Rodriguez MD Primary Care Physician En[place] [facility] [place] Date(s): 10/27/19 - 11/06/19 [facility] [address] [address]- [place] Attending Physician: Lawrence Lehman Admitting Physician: Lawrence [...] 05/22/19 8:01:36 EDT, Route to Pharmacy Electronically, [facility] 3 Start Date: 05/22/19 Stop Date: 05/16/20 Status: Ordered Flovent HFA 44 mcg/inh inhalation aerosol = 88 mcg, Inhalation, 2 times a day, # 1 each, 0 Refills, Maintenance, 10/10/19 16:40:00 EST, [facility]/pharmacy #1130, 157.48, cm, 10/10/19 9:25:00 EST, [...]
--- OUTSIDE RECORDS SUMMARY | 2024-04-01 10:22 | XMS_ITS | Continuity of Care Document ---
Author Organization [facility] Address [address] [place] [address] [address] [place] [address]- Care Team Providers Care Log Raft Worker Name Role Phone Robel Rodriguez MD Primary Care Physician [place] [facility] [place](s): 10/28/20 - 11/04/[address] [place] [address]- Attending Physician: Brooke Gardner RD Allergies, Adverse Reactions, Alerts Substance Reaction Severity [...] 4 Refills, Maintenance, 10/28/19 13:42:00 EST, Tablet, [facility]/pharmacy #1130, 157.48, cm, 10/27/19 8:43:00 EST, [...]
--- OUTSIDE RECORDS SUMMARY | 2024-04-01 10:22 | XMS_ITS | Continuity of Care Document ---
Author Organization [facility] Address [address] [place] [address]- Care Team Providers Care Hydroelectric Operator Name Role Phone Michael ROWELL, Robel Primary Care Physician [place] [facility] [place] - 03/05/20 [facility] [address] [place] [address]- [facility] Discharge Disposition: A-D/C Home Attending Physician: Giovanni ROWELL, Salvador Valero Admitting Physician: Salvador Davila MD Referring Physician: Debbie Del Castillo NP [...] 1 Refills, Maintenance, 01/28/20 11:56:00 EDT, Tablet, [facility]/pharmacy #1130, 157.5, cm, 12/14/19 9:35:00 EDT, Height, 122, kg, 12/12/19 8:33:00 EDT, DryWeight Start Date: 01/28/20 Status: Ordered Flovent HFA 44 mcg/inh inhalation aerosol = 88 mcg, Inhalation, 2 times a day, # 1 each, 0 Refills, Maintenance, 10/10/19 16:40:00 EST, [facility]/pharmacy #1130, 157.48, cm, 10/10/19 [...]
--- OUTSIDE RECORDS SUMMARY | 2024-04-01 10:22 | XMS_ITS | Continuity of Care Document ---
Author Organization [facility] Address [address] [place] [address]- Care Team Providers Care Assessment Nurse Practitioner Name Role Phone Robel Rodriguez MD Primary Care Physician [place] [facility] [place] 11/20/19 - 11/30/19 [facility] [address] [place] [address] [facility] Attending Physician: Lawrence Lehman Admitting Physician: AdmLawrence [...] 05/22/19 8:01:36 EDT, Route to Pharmacy Electronically, [facility] 3 Start Date: 05/22/19 Stop Date: 05/16/20 Status: Ordered Flagyl 500 mg oral tablet 1 tablet = 500 mg, By Mouth, Every 12 hours, for 7 days, # 14 tablet, 0 Refills, Acute 12/06/19 23:36:00 EST, 11/29/19 23:36:00 EST, Tablet, [facility]/pharmacy #1130, 157.48, cm, 11/25/19 19:42:00 EST, Height, 120.6, kg, 11/29/19 21:45:00 EST, Dry Weight Start Date: 11/29/19 Stop Date: 12/06/19 Status: Ordered Flovent HFA 44 mcg/inh inhalation aerosol = 88 mcg, Inhalation, 2 times a day, # 1 each, 0 Refills, Maintenance, 10/10/19 16:40:00 EST, [facility]/pharmacy #1130, 157.48, cm, 10/10/19 9:25:00 EST, Height, [...] EDT, 11/12/19 9:47:00 EST, REC Powder, [facility]/pharmacy #1130, 17 Gm By Mouth Daily,Instr:dissolve in [...] 11/12/19 12:09:00 EST, Route to Pharmacy Electronically, [facility]/pharmacy #1130, 157.48, cm, 11/12/19 9:40:00 EST, Height, 118.63, kg, ... Start Date: 11/12/19 Stop Date: 03/01/20 Status: Ordered Vitamin B-12 500 mcg oral tablet 1 tablet = 500 mcg, By Mouth, Daily, # 30 tablet, 4 Refills, Maintenance, 10/28/19 13:42:00 EST, Tablet, [facility]/pharmacy #1130, 157.48, cm, 10/27/19 8:43:00 EST, Height, 118.63, kg, 08/30/18 15:56:00 EST, Dry Weight Start Date: 10/28/19 Status: Ordered Vitamin D3 2000 intl units oral capsule 2 capsule = 4,000 International_Units, By Mouth, Daily, # 60 capsule, 6 Refills, Maintenance, 10/10/19 16:40:00 EST, [facility]/pharmacy #1130, 157.48, cm, 10/10/19 9:25:00 EST, Height, [...]
--- OUTSIDE RECORDS SUMMARY | 2024-04-01 10:22 | XMS_ITS | Continuity of Care Document ---
Author Organization [facility] Address [address] [place] [address] [address] [place] [address]- Care Team Providers Care Cte Teacher Name Role Phone Robel Rodriguez MD Primary Care Physician En[place] [facility] [place] Date(s): 12/03/20 - 12/10/[address] [place] [address]- Attending Physician: Tres Alvarez MD Referring Physician: Robel Rodriguez MD Allergies, [...] 0 Refills, Maintenance, 10/10/19 16:40:00 EST, [facility]/pharmacy #1130, 157.48, cm, 10/10/19 9:25:00 [...] oldest [Reference Range]: 1 Height 157.48 cm (12/03/20 4:45 PM) Weight 133 kg (12/03/20 4:45 PM) Pulse Rate [55-90 bpm] 70 bpm (12/03/20 4:45 PM) Body Mass Index [18.5-24.99] 53.63 *>HHI* (12/03/20 4:45 PM) Blood Pressure [90-138/55-84 mm Hg] 112/ 70mm Hg (12/03/20 4:45 PM) Respiratory Rate [16-30 br/min] 16 br/mi n (12/03/20 4:45 PM) Temperature [96.8-100.4 DegF] 97.1 DegF (12/03/20 4:45 PM) Blood pressure sites Arm, right (12/03/20 4:45 PM) Temperature Route Temporal (12/03/20 4:45 PM) Weight Obtained Via Standing scale (12/03/20 4:45 PM) Social History Social History Type Response Smoking Status Never smoker entered on: 02/12/14 Sex
--- OUTSIDE RECORDS SUMMARY | 2024-04-01 10:22 | XMS_ITS | Continuity of Care Document ---
Author Organization [facility] Address [address] [place] [address]- Care Team Providers Care Office Services Manager Name Role Phone Robel Rodriguez MD Primary Care Physician [place] [facility] [place] - 07/09/[address] [address]- [facility] Allergies, Adverse Reactions, Alerts No Known Medication [...] 1 Refills, Maintenance, 01/28/20 11:56:00 EDT, Tablet, [facility]/pharmacy #1130, 157.5, cm, 12/14/19 9:35:00 EDT, Height, 122, kg, 12/12/19 8:33:00 EDT, DryWeight Start Date: 01/28/20 Status: Ordered Flovent HFA 44 mcg/inh inhalation aerosol = 88 mcg, Inhalation, 2 times a day, # 1 each, 0 Refills, Maintenance, 10/10/19 16:40:00 EST, [facility]/pharmacy #1130, 157.48, cm, 10/10/19 9:25:00 EST, [...]
--- OUTSIDE RECORDS SUMMARY | 2024-04-01 10:22 | XMS_ITS | Continuity of Care Document ---
Author Organization [facility] Address [address] [place] [address] [address] [place] [address]- Care Team Providers Care Travel Service Consultant Name Role Phone Robel Rodriguez MD Primary Care Physician ( [phone] [facility] [place] Date(s): 04/09/20 - 04/16/[address] [place] [address] [place] [address]- [facility] Encounter Diagnosis Weight gain status post gastric bypass(Discharge Diagnosis) - 04/09/20 Attending Physician: Tres Alvarez MD Allergies, Adverse Reactions, Alerts No Known [...] 1 Refills, Maintenance, 01/28/20 11:56:00 EDT, Tablet, [facility]/pharmacy #1130, 157.5, cm, 12/14/19 9:35:00 EDT, Height, 122, kg, 12/12/19 8:33:00 EDT, DryWeight Start Date: 01/28/20 Status: Ordered Flovent HFA 44 mcg/inh inhalation aerosol = 88 mcg, Inhalation, 2 times a day, # 1 each, 0 Refills, Maintenance, 10/10/19 16:40:00 EST, [facility]/pharmacy #1130, 157.48, cm, 10/10/19 9:25:00 EST, Height, [...] injection treatment 2managed by PCP 3Left leg Diagnosis Diagnosis Type Effective Dates Health Status Cl inical Service Informant Weight gain status post gastric bypass Discharge Diagnosis 04/09/20 Vital Signs Most recent to oldest [Reference Range]: 1 Height 157.5 cm (04/09/20 10:45 AM) Weight 121.1 kg (04/09/20 10:45 AM) Pulse Rate [55-90 bpm] 84 bpm (04/09/20 10:45 AM) Body Mass Index [18.5-24.99] 48.82 *>HHI* (04/09/20 10:45 AM) Blood Pressure [90-138/55-84 mm Hg] 87/5 9mm Hg *L* (04/09/20 10:45 AM) Respiratory Rate [16-30 br/min] 16 br/mi n (04/09/20 10:45 AM) Temperature [96.8-100.4 DegF] 97.4 DegF (04/09/20 10:45 AM) Blood pressure sites Arm, left (04/09/20 10:45 AM) Temperature Route Temporal (04/09/20 10:45 AM) Social History Social History Type Response Smoking Status Never smoker entered on: 02/12/14 Sex
--- OUTSIDE RECORDS SUMMARY | 2024-04-01 10:23 | XMS_ITS | Continuity of Care Document ---
Author Organization [facility] Address [address] [place] [address]- Care Team Providers Care Shot Peening Operator Name Role Phone Robel Rodriguez MD Primary Care Physician En[place] [facility] [place] Date(s): 01/29/20 - 03/12/20 [facility] [address] [place] [address] [facility] Attending Physician: Nathaniel Sparrow MD Admitting Physician: Nathaniel Sparrow MD Allergies, Adverse Reactions, Alerts No Known [...] 1 Refills, Maintenance, 01/28/20 11:56:00 EDT, Tablet, [facility]/pharmacy #1130, 157.5, cm, 12/14/19 9:35:00 EDT, Height, 122, kg, 12/12/19 8:33:00 EDT, DryWeight Start Date: 01/28/20 Status: Ordered Flovent HFA 44 mcg/inh inhalation aerosol = 88 mcg, Inhalation, 2 times a day, # 1 each, 0 Refills, Maintenance, 10/10/19 16:40:00 EST, [facility]/pharmacy #1130, 157.48, cm, 10/10/19 9:25:00 [...]
--- OUTSIDE RECORDS SUMMARY | 2024-04-01 10:23 | XMS_ITS | Continuity of Care Document ---
Author Organization [facility] ter Address [address] [place] [address]- Care Team Providers Care Outside Barrel Lathe Operator Name Role Phone Robel Rodriguez MD Primary Care Physician ( [phone] En[place] [facility] [place] Date(s): 12/04/19 - 12/04/[address] [address]- [facility] Discharge Disposition: A-D/C Home Attending Physician: Kanika Bose MD Admitting Physician: Kanika Bose MD Referring Physician: Kanika Bose MD Allergies, [...] 05/22/19 8:01:36 EDT, Route to Pharmacy Electronically, [facility] 3 Start Date: 05/22/19 Stop Date: 05/16/20 Status: Ordered Flagyl 500 mg oral tablet 1 tablet = 500 mg, By Mouth, Every 12 hours, for 7 days, # 14 tablet, 0 Refills, Acute 12/06/19 23:36:00 EST, 11/29/19 23:36:00 EST, Tablet, [facility]/pharmacy #1130, 157.48, cm, 11/25/19 19:42:00 EST, Height, 120.6, kg, 11/29/19 21:45:00 EST, Dry Weight Start Date: 11/29/19 Stop Date: 12/06/19 Status: Ordered Flovent HFA 44 mcg/inh inhalation aerosol = 88 mcg, Inhalation, 2 times a day, # 1 each, 0 Refills, Maintenance, 10/10/19 16:40:00 EST, [facility]/pharmacy #1130, 157.48, cm, 10/10/19 9:25:00 EST, [...] 9:48:00 EDT, 11/12/19 9:47:00 EST, REC Powder, [facility]/pharmacy #1130, 17 Gm By Mouth Daily,Instr:dissolve [...] 11/12/19 12:09:00 EST, Route to Pharmacy Electronically, [facility]/pharmacy #1130, 157.48, cm, 11/12/19 9:40:00 EST, Height, 118.63, kg, ... Start Date: 11/12/19 Stop Date: 03/01/20 Status: Ordered Vitamin B-12 500 mcg oral tablet 1 tablet = 500 mcg, By Mouth, Daily, # 30 tablet, 4 Refills, Maintenance, 10/28/19 13:42:00 EST, Tablet, [facility]/pharmacy #1130, 157.48, cm, 10/27/19 8:43:00 EST, Height, 118.63, kg, 08/30/18 15:56:00 EST, Dry Weight Start Date: 10/28/19 Status: Ordered Vitamin D3 2000 intl units oral capsule 2 capsule = 4,000 International_Units, By Mouth, Daily, # 60 capsule, 6 Refills, Maintenance, 10/10/19 16:40:00 EST, [facility]/pharmacy #1130, 157.48, cm, 10/10/19 9:25:00 EST, [...] injection treatment 3managed by PCP 4Left leg Vital Signs Most recent to oldest [Reference Range]: 1 Height 157 cm (12/04/19 12:03 PM) Weight 119.6 kg (12/04/19 11:55 AM) Blood Pressure [90-138/55-84 mm Hg] 102/ 52mm Hg (12/04/19 12:03 PM) Respiratory Rate [16-30 br/min] 22 br/mi n (12/04/19 12:03 PM) Temperature [96.8-100.4 DegF] 97.5 DegF (12/04/19 12:03 PM) Blood pressure sites Arm, right (12/04/19 12:03 PM) Temperature Route Oral (12/04/19 12:03 PM) Weight Obtained Via Standing scale (12/04/19 11:55 AM) Social History Social History Type Response Smoking Status Never smoker entered on: 02/12/14 Sex
--- OUTSIDE RECORDS SUMMARY | 2024-04-01 10:23 | XMS_ITS | Continuity of Care Document ---
Author Organization [facility] Address [address] [place] [address] [address] [place] [address]- Care Team Providers Care Coin Dealer Name Role Phone Robel Rodriguez MD Primary Care Physician [place] [facility] [place] 11/02/20 - 11/09/[address] [place] [address]- Encounter Diagnosis Weight gain following gastric bypass surgery(Discharge Diagnosis) - 11/02/20 Hypoglycemia(Discharge Diagnosis) - 11/02/20 Attending Physician: Christo Dimas Referring Physician: Robel [...] Diagnosis Diagnosis Type Effective Dates Health Status Clinical Service Informant Weight gain following gastric bypass surgery Discharge Diagnosis 11/02/20 Hypoglycemia Discharge Diagnosis 11/02/20 Social History Social History Type Response Smoking Status Never smoker entered on: 02/12/14 Sex
--- OUTSIDE RECORDS SUMMARY | 2024-04-01 10:23 | XMS_ITS | Continuity of Care Document ---
Author Organization [facility] ter Address [address] [place] [address]- Care Team Providers Care Hand Hide Stretcher Name Role Phone Robel Rodriguez MD Primary Care Physician [place] [facility] [place] Date(s): 12/23/20 - 12/23/[address] [address] Discharge Disposition: A-D/C Home Attending Physician: Shanell Phillips MD Admitting Physician: Shanell Phillips MD Referring Physician: Shanell Phillips MD Allergies, Adverse Reactions, Alerts Substance Reaction Severity Status Other Environmental Allergy grass/trees-asthmaexac Active Other Food Allergy throat closure almonds and isaiah nuts Active Immunizations Given and Recorded Vaccine Date [...] bypass, 07/11/19 10:32:36 EDT, Compound Start Date: 10/11/19 Status: Ordered ibuprofen 600 mg oral tablet [...] oldest [Reference Range]: 1 2 3 Height 157.48 cm (12/23/20 9:53 AM) 157.48 cm (12/15/20 7:53 PM) Weight 133.8 kg (12/23/20 9:53 AM) 127.27 kg (12/15/20 7:53 PM) Oxygen Saturation [94-100 %] 96 % (12/23/20 1:45 PM) 96 % (12/23/20 1:30 PM) 99 % (12/23/20 1:15 PM) Pulse Rate [55-90 bpm] 68 bpm (12/23/20 9:53 AM) Body Mass Index [18.5-24.99] 53.95 *>HHI* (12/23/20 9:53 AM) 51.32 *>HHI* (12/15/20 7:53 PM) Blood Pressure [90-138/55-84 mm Hg] 118/71mm Hg (12/23/20 1:45 PM) 115/69mm Hg (12/23/20 1:30 PM) 116/67mm Hg (12/23/20 1:15 PM) Respiratory Rate [16-30 br/min] 18 br/min (12/23/20 1:45 PM) 19 br/min (12/23/20 1:30 PM) 17 br/min (12/23/20 1:15 PM) Temperature [96.8-100.4 DegF] 97.5 DegF (12/23/20 1:45 PM) 98.3 DegF (12/23/20 12:15 PM) 98 DegF (12/23/20 9:53 AM) Liters per Minute 3 L/min (12/23/20 12:30 PM) 5 L/min (12/23/20 12:15 PM) Mode of Delivery (Oxygen) Room air (12/23/20 1:45 PM) Room air (12/23/20 1:30 PM) Room air (12/23/20 1:15 PM) Blood pressure sites Arm, left (12/23/20 1:45 PM) Arm, left (12/23/20 1:30 PM) Arm, left (12/23/20 1:15 PM) Temperature Route Temporal (12/23/20 1:45 PM) Temporal (12/23/20 12:15 PM) Temporal (12/23/20 9:53 AM) Dry Weight 133.8 kg (12/23/20 9:53 AM) 127.27 kg (12/15/20 7:53 PM) Weight Obtained Via Standing scale (12/23/20 9:53 AM) Patient/family stated (12/15/20 7:53 PM) Dry Weight Obtained Via Standing scale (12/23/20 9:53 AM) Social History Social History Type Response Smoking Status Never smoker entered on: 02/12/14 Sex
--- OUTSIDE RECORDS SUMMARY | 2024-04-01 10:23 | XMS_ITS | Continuity of Care Document ---
Author Organization [facility] Address [address] [place] [address] [address] [place] [address]- Care Team Providers Care Sales Stock Associate Name Role Phone Robel Rodriguez MD Primary Care Physician ( [phone] Encounter [facility] [place] Date(s): 03/18/21 - 04/17/[address] [place], [place] [address] Attending Physician: Admtr, Ricky8 Admitting Physician: Admtr, Ar8 Referring Physician: Admtr, Ar8 Allergies, Adverse Reactions, [...] 12/23/20 10:18:00 EDT, Route to Pharmacy Electronically, [facility]/pharmacy #[id number], Partial fill upon patient request if [...] 9:14:50, Compound Start Date: 08/21/17 Status: Ordered [facility] ALCOHOL 70% PREP PADS [facility] ALCOHOL 70% PREP PADS, See Instructions, # [...] 0 Refills, Maintenance, 12/23/20 10:18:00 EDT, Tablet, [facility]/pharmacy #[id number], Partial fill upon patient request if [...] Pharmacy [facility]ically[id number], Partial fill upon patientrequest if the [...]
--- OUTSIDE RECORDS SUMMARY | 2024-04-01 10:23 | XMS_ITS | Continuity of Care Document ---
Author Organization [facility] ter Address [address] [place] [address]- Care Team Providers Care Director Of Clinical Education Name Role Phone Robel Rodriguez MD Primary Care Physician ( [phone] [place] [facility] [place] 10/10/19 - 10/17/[address] [address] [facility] Attending Physician: Cary Medel DO Allergies, Adverse Reactions, Alerts No Known Medication [...] 05/22/19 8:01:36 EDT, Route to Pharmacy Electronically, [facility] Start Date: 05/22/19 Stop Date: 05/16/20 Status: Ordered Flovent HFA 44 mcg/inh inhalation aerosol = 88 mcg, Inhalation, 2 times a day, # 1 each, 0 Refills, Maintenance, 10/10/19 16:40:00 EST, [facility]/pharmacy #1130, 157.48, cm, 10/10/19 9:25:00 EST, Height, [...]
--- OUTSIDE RECORDS SUMMARY | 2024-04-01 10:23 | XMS_ITS | Continuity of Care Document ---
Author Organization [facility] Address [address] [place] [address]- Care Team Providers Care Restaurant Hostess Name Role Phone Robel Rodriguez MD Primary Care Physician [place] [facility] [place] - 03/05/24 [facility] [address] [place] [address]- Attending Physician: Lawrence Lehman Admitting Physician: AdmLawrence brokc Referring Physician: AdmtrLawrence Allergies, Adverse Reactions, Alerts [...] influenza virus vaccine, inactivated 12/31/13 Give n [id number] 12y+ bivalent booster vax 08/01/22 Recorded SARS-CoV-2 [...] Care Nurse Name: Robel Rodriguez MD Position: [facility] Outreach Member Role: PCP Address: Address: [address] [place] [address]- [place] Name: Rio Breen DO Position: [facility] INSPECTOR [employer] MD Member Role: Lifetime INSPECTOR [employer] Physician Address: Address: [address] [place] [address]- [place] Name: Nayana Pagan RN Position: [facility] Nurse Member Role: Primary Care Nurse Name: Krystin Carter RN Position: [facility] Hospital Glass Cutter Member Role: Primary Care Nurse Care Team Related Persons Name: EMELINA MOLINA Address: home [address] [place] [address] Name: LUMA SEVILLA Address: [employer] Address: home [address] [place] [address] Address: temporary 0 Name: LUMA BETANCOURT Address: home [address] [place] [address] Name: LUMA BETANCOURT Address: home [address] [place] [address] Name: CATHY MIGUEL Address: home [address] [place] [address]
--- OUTSIDE RECORDS SUMMARY | 2024-04-01 10:23 | XMS_ITS | Continuity of Care Document ---
Author Organization [facility] ter Address [address] [place] [address]- Care Team Providers Care Delinquency Prevention Social Worker Name Role Phone Robel Rodriguez MD Primary Care Physician ( [phone] Encounter [facility] [place] Date(s): 01/08/23 - 03/17/[address] [address]- Attending Physician: Christo Dmias Admitting Physician: Christo Dimas Referring Physician: Christo Dimas Allergies, Adverse Reactions, Alerts Substance Reaction Severity [...] 12/23/20 10:18:00 EDT, Route to Pharmacy Electronically, [facility]/pharmacy #1130, Partial fill upon patient request [...] 9:14:50, Compound Start Date: 08/21/17 Status: Ordered [facility] ALCOHOL 70% PREP PADS [facility] ALCOHOL 70% PREP PADS, See Instructions, [...] 0 Refills, Maintenance, 12/23/20 10:18:00 EDT, Tablet, [facility]/pharmacy #1130, Partial fill upon patient request [...] 12/23/20 10:18:00 EDT, Route to Pharmacy Electronically, [facility]/pharmacy #1130, Partial fill upon patientrequest if [...] 12/23/20 10:18:00 EDT, Route to Pharmacy Electronically, [facility]/pharmacy #1130, Partial fill upon patient request [...] 12/23/20 10:18:00 EDT, [facility] Partial fill upon patient request if the prescription is f... Start Date: 12/23/20 Status: Ordered Vitamin B-12 500 mcg oral tablet 1 tablet = 500 mcg, By Mouth, Daily, # 30 tablet, 4 Refills, Maintenance, 10/28/19 13:42:00 EST, Tablet[facility], 157.48, cm, 10/27/19 8:43:00 EST, Height, [...] Care Nurse Name: Cesar Rodriguez RN Position: [facility] RN Member Role: Primary Care Nurse Name: Robel Rodriguez MD Position: [facility] Outreach Member Role: PCP Address: Address: [address] [place] [address]- Name: Rio Breen DO Position: [facility] PRINTING PRESS OPERATOR MD Member Role: Lifetime PRINTING PRESS OPERATOR Physician Address: Address: [address] [place], [place] [address]s [facility] Equipment Oiler [place] [address]- [place] Name: Raul LYN, Krystin Position: [facility] Hospital Animal Killer Member Role: Primary Care Nurse Care Team Related Persons Name: EMELINA MOLINA Address: home [address] [place] [address] Name: LUMA SEVILLA Address: [employer] Address: home [address] [place] [address] Name: LUMA BETANCOURT Address: home [address] [place] [address] Name: LUMA BETANCOURT Address: home [address] [place] [address] Name: CATHY MIGUEL Address: home [address] [place] [address]
--- OUTSIDE RECORDS SUMMARY | 2024-04-01 10:23 | XMS_ITS | Continuity of Care Document ---
Author Organization [facility] Address [address] [place] [address] [address]ri [address] [place] [address]- Care Team Providers Care Front End Software Engineer Name Role Phone Robel Rodriguez MD Primary Care Physician [place] [facility] [place] - 01/21/[address] [place] [address]- Attending Physician: Knee RD, Brooke Allergies, Adverse [...] 0 Refills, Maintenance, 12/23/20 10:18:00 EDT, Tablet, [facility]/pharmacy #1130, Partial fill upon patient [...] 12/23/20 10:18:00 EDT, Route to Pharmacy Electronically, [facility]/pharmacy #1130, Partial fill upon patientrequest [...] 12/23/20 10:18:00 EDT, Route to Pharmacy Electronically, [facility]/pharmacy #1130, Partial fill upon patient [...] 12/23/20 10:18:00 EDT, Route to Pharmacy Electronically, [facility]/pharmacy #1130, Partial fill upon patient request if the prescription is f... Start Date: 12/23/20 Status: Ordered Vitamin B-12 500 mcg oral tablet 1 tablet = 500 mcg, By Mouth, Daily, # 30 tablet, 4 Refills, Maintenance, 10/28/19 13:42:00 EST, Tablet, [facility]/pharmacy #1130, 157.48, cm, 10/27/19 8:43:00 [...]
--- OUTSIDE RECORDS SUMMARY | 2024-04-01 10:23 | XMS_ITS | Continuity of Care Document ---
Author Organization [facility] Address [address] [place] [address]- Care Team Providers Care Radio Mechanic Apprentice Name Role Phone Robel Rodriguez MD Primary Care Physician Encounter [facility] [place] Date(s): 06/03/21 - 10/01/21 [facility] [address] [place] [address] Attending Physician: Yasmani Beck MD Admitting Physician: Yasmani Beck MD Referring Physician: Robel Rodriguez MD Allergies, [...] 10:18:00 EDT, Route to Pharmacy Electronically, [facility]/pharmacy #1130, Partial fill upon patient request if [...] Compound Start Date: 08/21/17 Status: Ordered [facility] ALCOHOL 70% PREP PADS [facility] ALCOHOL 70% PREP PADS, See Instructions, # [...] Refills, Maintenance, 12/23/20 10:18:00 EDT, Tablet, [facility]/pharmacy #1130, Partial fill upon patient request if [...] 10:18:00 EDT, Route to Pharmacy Electronically, [facility]/pharmacy #1130, Partial fill upon patientrequest if the [...] 10:18:00 EDT, Route to Pharmacy Electronically, [facility]/pharmacy #1130, Partial fill upon patient request if [...] 10:18:00 EDT, Route to Pharmacy Electronically, [facility]/pharmacy #1130, Partial fill upon patient request if the prescription is f... Start Date: 12/23/20 Status: Ordered Vitamin B-12 500 mcg oral tablet 1 tablet = 500 mcg, By Mouth, Daily, # 30 tablet, 4 Refills, Maintenance, 10/28/19 13:42:00 EST, Tablet, [facility]/pharmacy #1130, 157.48, cm, 10/27/19 8:43:00 EST, Height, [...]
--- OUTSIDE RECORDS SUMMARY | 2024-04-01 10:23 | XMS_ITS | Continuity of Care Document ---
Author Organization [facility] Address [address] [place] [address] [address] [place] [address]- Care Team Providers Care Creative Services Designer Name Role Phone Robel Rodriguez MD Primary Care Physician Encounter [facility] [place] Date(s): 01/14/21 - 04/17/[address] [place] [address]- Attending Physician: Knee RDBrooke Allergies, Adverse Reactions, Alerts Substance Reaction Severity [...] 12/23/20 10:18:00 EDT, Route to Pharmacy Electronically, [facility]/pharmacy #1130, Partial fill upon patient request [...] 9:14:50, Compound Start Date: 08/21/17 Status: Ordered [facility] ALCOHOL 70% PREP PADS [facility] ALCOHOL 70% PREP PADS, See Instructions, [...] 0 Refills, Maintenance, 12/23/20 10:18:00 EDT, Tablet, [facility]/pharmacy #1130, Partial fill upon patient request [...] 12/23/20 10:18:00 EDT, Route to Pharmacy Electronically, [facility]/pharmacy #1130, Partial fill upon patientrequest if [...] 12/23/20 10:18:00 EDT, Route to Pharmacy Electronically, [facility]/pharmacy #1130, Partial fill upon patient request [...] 12/23/20 10:18:00 EDT, Route to Pharmacy Electronically, [facility]/pharmacy #1130, Partial fill upon patient request [...]
--- OUTSIDE RECORDS SUMMARY | 2024-04-01 10:23 | XMS_ITS | Continuity of Care Document ---
Author Organization [facility] Address [address] [place] [address]- Care Team Providers Care Elementary School Band Director Name Role Phone Robel Rodriguez MD Primary Care Physician En[place] [facility] [place] Date(s): 12/05/19 - 01/10/20 [facility] [address] [place] [address]- [facility] Attending Physician: Nathaniel Sparrow MD Admitting [...] 05/22/19 8:01:36 EDT, Route to Pharmacy Electronically, [facility] Start Date: 05/22/19 Stop Date: 05/16/20 Status: Ordered Flovent HFA 44 mcg/inh inhalation aerosol = 88 mcg, Inhalation, 2 times a day, # 1 each, 0 Refills, Maintenance, 10/10/19 16:40:00 EST, [facility]/pharmacy #1130, 157.48, cm, 10/10/19 9:25:00 EST, Height, [...] 9:48:00 EDT, 11/12/19 9:47:00 EST, REC Powder, [facility]/pharmacy #1130, 17 Gm By Mouth Daily,Instr:dissolve in [...] 11/12/19 12:09:00 EST, Route to Pharmacy Electronically, [facility]/pharmacy #1130, 157.48, cm, 11/12/19 9:40:00 EST, Height, 118.63, kg, ... Start Date: 11/12/19 Stop Date: 03/01/20 Status: Ordered Vitamin B-12 500 mcg oral tablet 1 tablet = 500 mcg, By Mouth, Daily, # 30 tablet, 4 Refills, Maintenance, 10/28/19 13:42:00 EST, Tablet, [facility]/pharmacy #1130, 157.48, cm, 10/27/19 8:43:00 EST, Height, 118.63, kg, 08/30/18 15:56:00 EST, Dry Weight Start Date: 10/28/19 Status: Ordered Vitamin D3 2000 intl units oral capsule 2 capsule = 4,000 International_Units, By Mouth, Daily, # 60 capsule, 6 Refills, Maintenance, 10/10/19 16:40:00 EST, [facility]/pharmacy #1130, 157.48, cm, 10/10/19 9:25:00 EST, Height, [...]
--- OUTSIDE RECORDS SUMMARY | 2024-04-01 10:23 | XMS_ITS | Continuity of Care Document ---
Author Organization [facility] Address [address] [place] [address] [address] [place] [address]- Care Team Providers Care Contracting Executive Name Role Phone Robel Rodriguez MD Primary Care Physician ( [phone] Encounter [facility] [place]s): 05/31/20 - 06/07/[address] [place] [address]- [facility] Encounter Diagnosis Weight gain status post gastric bypass(Discharge Diagnosis) - 05/31/20 Attending Physician: Christo Dimas Referring Physician: Robel [...] 1 Refills, Maintenance, 01/28/20 11:56:00 EDT, Tablet, [facility]/pharmacy #1130, 157.5, cm, 12/14/19 9:35:00 EDT, Height, 122, kg, 12/12/19 8:33:00 EDT, DryWeight Start Date: 01/28/20 Status: Ordered Flovent HFA 44 mcg/inh inhalation aerosol = 88 mcg, Inhalation, 2 times a day, # 1 each, 0 Refills, Maintenance, 10/10/19 16:40:00 EST, [facility]/pharmacy #1130, 157.48, cm, 10/10/19 9:25:00 EST, Height, [...] 4 Refills, Maintenance, 10/28/19 13:42:00 EST, Tablet, [facility]/pharmacy #1130, 157.48, cm, 10/27/19 8:43:00 EST, Height, [...] gain status post gastric bypass Discharge Diagnosis 05/31/20 Social History Social History Type Response Smoking Status Never smoker entered on: 02/12/14 Sex
--- OUTSIDE RECORDS SUMMARY | 2024-04-01 10:23 | XMS_ITS | Continuity of Care Document ---
Author Organization [facility] Address [address] [place] [address]- Care Team Providers Care Customer Service Sales Associate Name Role Phone Robel Rodriguez MD Primary Care Physician [place] [facility] [place] 08/22/23 - 09/21/[address] [address] Attending Physician: AdmLawrence brock Admitting Physician: [...] influenza virus vaccine, inactivated 12/31/13 Give n [id number] 12y+ bivalent booster vax 08/01/22 Recorded SARS-CoV-2 [...] Team Personnel Name: Hilda Neumann RN Position: [facility] RN Member Role: Primary Care Nurse Name: Malika Patel RN Position: S RN Member Role: Primary Care Nurse Name: Lay Parrish RN Position: [facility] RN Member Role: Primary Care Nurse Name: Cesar Rodriguez RN Position: [facility] RN Member Role: Primary Care Nurse Name: Robel Rodriguez MD Position: [facility] Outreach Member Role: PCP Address: Address: [address] [place] [address]- Name: Rio Breen DO Position: [facility] DETECTIVE SERGEANT MD Member Role: Lifetime DETECTIVE SERGEANT Physician Address: Address: [address] [place] [address]- Name: Nayana Pagan RN Position: [facility] SN RN Member Role: Primary Care Nurse Name: Krystin Carter RN Position: [facility] Hospital Actuarial Analyst Member Role: Primary Care Nurse Care Team Related Persons Name: EMELINA MOLINA Address: home [address] [place] [address] Name: LUMA SEVILLA Address: [employer] Address: home [address] [place] [address] Address: temporary 0 Name: LUMA BETANCOURT Address: home [address] [place] [address] Name: LUMA BETANCOURT Address: home [address] [place] [address] Name: CATHY MIGUEL Address: [address] [place] [address]
--- OUTSIDE RECORDS SUMMARY | 2024-04-01 10:23 | XMS_ITS | Continuity of Care Document ---
Author Organization [facility] Address [address] [place] [address]- Care Team Providers Care Cooker Cleaner Name Role Phone Michael ROWELL, Robel Primary Care Physician [place] [facility] [place]23 - 06/29/23 [facility] [address] [place] [address] Allergies, Adverse Reactions, Alerts Substance [...] 12/23/20 10:18:00 EDT, Route to Pharmacy Electronically, [facility]/pharmacy #1130, Partial fill upon patient request [...] 9:14:50, Compound Start Date: 08/21/17 Status: Ordered [facility] ALCOHOL 70% PREP PADS [facility] ALCOHOL 70% PREP PADS, See Instructions, [...] 0 Refills, Maintenance, 12/23/20 10:18:00 EDT, Tablet, [facility]/pharmacy #1130, Partial fill upon patient request if the prescription is for a schedule II opioid drug., 157.48,... Start Date: 12/23/20 Status: Ordered FreeStyle Salom[place] 2 [place] FreeStyle [place] 2 [place], See Instructions, # 1 each, Refills 0, [...] 12/23/20 10:18:00 EDT, Route to Pharmacy Electronically, [facility]/pharmacy #1130, Partial fill upon patientrequest if [...] 12/23/20 10:18:00 EDT, Route to Pharmacy Electronically, [facility]/pharmacy #1130, Partial fill upon patient request [...] 12/23/20 10:18:00 EDT, Route to Pharmacy Electronically, [facility]/pharmacy #1130, Partial fill upon patient request if the prescription is f... Start Date: 12/23/20 Status: Ordered Vitamin B-12 500 mcg oral tablet 1 tablet = 500 mcg, By Mouth, Daily, # 30 tablet, 4 Refills, Maintenance, 10/28/19 13:42:00 EST, Tablet, [facility]/pharmacy #1130, 157.48, cm, 10/27/19 8:43:00 [...] Team Personnel Name: Hilda Neumann RN Position: [facility] RN Member Role: Primary Care Nurse Name: Malika Patel RN Position: [facility] RN Member Role: Primary Care Nurse Name: Lay Parrish RN Position: [facility] RN Member Role: Primary Care Nurse Name: Cesar Rodriguez RN Position: [facility] RN Member Role: Primary Care Nurse Name: Robel Rodriguez MD Position: [facility] Outreach Member Role: PCP Address: Address: [address] [place] [address]- Name: Rio Breen DO Position: [facility] SENIOR SECURITY ANALYST MD Member Role: Lifetime SENIOR SECURITY ANALYST Physician Address: Address: [address] [place] [address] [place] [address]- Name: Nayana Pagan RN Position: [facility] SN RN Member Role: Primary Care Nurse Name: Krystin Carter RN Position: [facility] Hospital Product Lead Member Role: Primary Care Nurse Care Team Related Persons Name: EMELINA MOLINA Address: home [address] [place] [address] Name: LUMA SEVILLA Address: [employer] Address: home [address] [place] [address] [place] Address: temporary 0 Name: LUMA BETANCOURT Address: [address] [place] [address] Name: LUMA BETANCOURT Address: [address] [place] [address] Name: CATHY MIGUEL Address: [address] [place] [address]
--- OUTSIDE RECORDS SUMMARY | 2024-04-01 10:23 | XMS_ITS | Continuity of Care Document ---
Author Organization [facility] Address [address] [place] [address]- Care Team Providers Care Hydrographer Name Role Phone Michael ROWELL, Robel Primary Care Physician ( [phone] [place] [facility] [place] - 10/20/[address] [address]- [facility] Attending Physician: AdmLawrence brock Admitting Physician: AdmLawrence brock Referring Physician: Admtr, Ar8 Allergies, Adverse Reactions, Alerts No Known Medication [...] 05/22/19 8:01:36 EDT, Route to Pharmacy Electronically, [facility] Start Date: 05/22/19 Stop [...]
--- OUTSIDE RECORDS SUMMARY | 2024-04-01 10:23 | XMS_ITS | Continuity of Care Document ---
Author Organization [facility] Address [address] [place] [address]- Care Team Providers Care Prototype Assembler Electronics Name Role Phone Robel Rodriguez MD Primary Care Physician Encounter [facility] [place] Date(s): 02/11/20 - 03/12/20 [facility] [address] [place] [address]- [facility] Attending Physician: Lawrence Lehman Admitting Physician: AdmLawrence [...] needed, # 1 each, 0 Refills, Maintenance, 11/08/19 8:23:08 EST, Powder, 2 puffs Inhalation Every [...] 1 Refills, Maintenance, 01/28/20 11:56:00 EDT, Tablet, [facility]/pharmacy #1130, 157.5, cm, 12/14/19 9:35:00 EDT, Height, 122, kg, 12/12/19 8:33:00 EDT, DryWeight Start Date: 01/28/20 Status: Ordered Flovent HFA 44 mcg/inh inhalation aerosol = 88 mcg, Inhalation, 2 times a day, # 1 each, 0 Refills, Maintenance, 10/10/19 16:40:00 EST, [facility]/pharmacy #1130, 157.48, cm, 10/10/19 9:25:00 [...]
--- OUTSIDE RECORDS SUMMARY | 2024-04-01 10:23 | XMS_ITS | Continuity of Care Document ---
Author Organization [facility] ter Address [address] [place] [address]- Care Team Providers Care Voice Studies Director Name Role Phone Robel Rodriguez MD Primary Care Physician ( [phone] [place] [facility] [place] Date(s): 11/29/19 - 11/30/[address] [address]- [facility] Discharge Disposition: A-D/C Home Attending Physician: Adriane Alanis MD Admitting Physician: Adriane Alanis MD Referring Physician: Adriane Alanis MD Allergies, Adverse Reactions, Alerts No Known [...] 05/22/19 8:01:36 EDT, Route to Pharmacy Electronically, [facility] Start Date: 05/22/19 Stop Date: 05/16/20 Status: Ordered Flagyl 500 mg oral tablet 1 tablet = 500 mg, By Mouth, Every 12 hours, for 7 days, # 14 tablet, 0 Refills, Acute 12/06/19 23:36:00 EST, 11/29/19 23:36:00 EST, Tablet, [facility]/pharmacy #1130, 157.48, cm, 11/25/19 19:42:00 EST, Height, 120.6, kg, 11/29/19 21:45:00 EST, Dry Weight Start Date: 11/29/19 Stop Date: 12/06/19 Status: Ordered Flovent HFA 44 mcg/inh inhalation aerosol = 88 mcg, Inhalation, 2 times a day, # 1 each, 0 Refills, Maintenance, 10/10/19 16:40:00 EST, [facility]/pharmacy #1130, 157.48, cm, 10/10/19 9:25:00 EST, [...] 9:48:00 EDT, 11/12/19 9:47:00 EST, REC Powder, [facility]/pharmacy #1130, 17 Gm By Mouth Daily,Instr:dissolve in [...] 11/12/19 12:09:00 EST, Route to Pharmacy Electronically, [facility]/pharmacy #1130, 157.48, cm, 11/12/19 9:40:00 EST, Height, 118.63, kg, ... Start Date: 11/12/19 Stop Date: 03/01/20 Status: Ordered Vitamin B-12 500 mcg oral tablet 1 tablet = 500 mcg, By Mouth, Daily, # 30 tablet, 4 Refills, Maintenance, 10/28/19 13:42:00 EST, Tablet, [facility]/pharmacy #1130, 157.48, cm, 10/27/19 8:43:00 EST, Height, 118.63, kg, 08/30/18 15:56:00 EST, Dry Weight Start Date: 10/28/19 Status: Ordered Vitamin D3 2000 intl units oral capsule 2 capsule = 4,000 International_Units, By Mouth, Daily, # 60 capsule, 6 Refills, Maintenance, 10/10/19 16:40:00 EST, [facility]/pharmacy #1130, 157.48, cm, 10/10/19 9:25:00 EST, [...] to oldest [Reference Range]: 1 2 3 Weight 120.6 kg (11/29/19 9:45 PM) Oxygen Saturation [94-100 %] 96 % (11/30/19 12:15 AM) 95 % (11/29/19 11:15 PM) 97 % (11/29/19 10:20 PM) Blood Pressure [90-138/55-84 mm Hg] 102/60mm Hg (11/29/19 10:06 PM) Respiratory Rate [16-30 br/min] 20 br/min (11/29/19 11:55 PM) 18 br/min (11/29/19 10:06 PM) Temperature [96.8-100.4 DegF] 97.2 DegF (11/29/19 9:45 PM) Mode of Delivery (Oxygen) Room air (11/29/19 10:06 PM) Blood pressure sites Arm, right (11/29/19 10:06 PM) Temperature Route Oral (11/29/19 9:45 PM) Dry Weight 120.6 kg (11/29/19 9:45 PM) Weight Obtained Via Standing scale (11/29/19 9:45 PM) Dry Weight Obtained Via Standing scale (11/29/19 9:45 PM) Social History Social History Type Response Smoking Status Never smoker entered on: 02/12/14 Sex
--- OUTSIDE RECORDS SUMMARY | 2024-04-01 10:23 | XMS_ITS | Continuity of Care Document ---
Author Organization [facility] Address [address] [place] [address]- Care Team Providers Care Sheriff'S Officer Name Role Phone Michael ROWELL, Robel Primary Care Physician ( [phone] En[place] [facility] [place] Date(s[place] 08/24/20 - 10/15/[address] [address]- Attending Physician: Not on Staff, Attending MD Allergies, Adverse Reactions, Alerts Substance Reaction [...] 4 Refills, Maintenance, 10/28/19 13:42:00 EST, Tablet, [facility]/pharmacy #1130, 157.48, cm, 10/27/19 8:43:00 [...]
--- OUTSIDE RECORDS SUMMARY | 2024-04-01 10:23 | XMS_ITS | Continuity of Care Document ---
Author Organization [facility] ter Address [address] [place] [id number]- Care Team Providers Care Fur Mixer Operator Name Role Phone Robel Rodriguez MD Primary Care Physician ( [phone] Encounter [facility] [place] Date(s): 02/07/22 - 02/08/[address] [address]- Encounter Diagnosis chest pain(Final) - 02/08/22 Discharge Disposition: A-D/C Home Attending Physician: Love Lino MD Admitting Physician: Love Lino MD Referring Physician: Not on Staff, Referring [...] 12/23/20 10:18:00 EDT, Route to Pharmacy Electronically, [facility]/pharmacy #[id number], Partial fill upon patient [...] 9:14:50, Compound Start Date: 08/21/17 Status: Ordered [facility] ALCOHOL 70% PREP PADS [facility] ALCOHOL 70% PREP PADS, See Instructions, [...] 0 Refills, Maintenance, 12/23/20 10:18:00 EDT, Tablet, [facility]/pharmacy #[id number], Partial fill upon patient [...] 12/23/20 10:18:00 EDT, Route to Pharmacy Electronically, [facility]/pharmacy #[id number], Partial fill upon patientrequest [...] 12/23/20 10:18:00 EDT, Route to Pharmacy Electronically, [facility]/pharmacy #[id number], Partial fill upon patient [...] 12/23/20 10:18:00 EDT, Route to Pharmacy Electronically, [facility]/pharmacy #[id number], Partial fill upon patient request if the prescription is f... Start Date: 12/23/20 Status: Ordered Vitamin B-12 500 mcg oral tablet 1 tablet = 500 mcg, By Mouth, Daily, # 30 tablet, 4 Refills, Maintenance, 10/28/19 13:42:00 EST, Tablet, [facility]/pharmacy #[id number], 157.48, cm, 10/27/19 8:43:00 [...] Active H/O Renal cell carcinoma(Confirmed) 01/28/15 Active Severe obesity(Confirmed) Active Request for sterilization(Confirmed) Active Superficial vein thrombosis( Confirmed) 2018 Active Varicose vein of leg(Confirmed) Active 1Prior to knowledge of - pt reports she was on pain injection treatment 2managed by PCP 3Left leg Results Radiology Reports * Exam Date Time Procedure Performing Provider Status 02/07/22 7:56 PM Chest 2 Views Frontal and Lat Michael Jo; Auth (Verified) Notes: (Chest 2 Views Frontal and Lat) Reason For Exam: Chest Pain;Other: RESULT: Chest 2 Views Frontal and Lat Chest 2 Views Frontal and Lat Hx of Present Illness: chest pain happened last week for 3 days then resolved, chest pain radiatingto left arm and mid sternal pain, pt states leaning forward and bending her head forward worsens the chest pain.; Reason: Other:; Chest Pain; Clinical Question(s): Other: COMPARISON: 05/18/2021 FINDINGS: LINES AND TUBES: None. LUNGS AND PLEURA: Clear lungs. Normal pulmonary vascularity. No pleural effusion. No pneumothorax. HEART, MEDIASTINUM AND KATT: Heart is normal in size. Normal upper mediastinal and hilar contour. BONES AND SOFT TISSUES: No acute abnormality. IMPRESSION: No acute abnormality. WSN: [id number] Ordering Physician: Moiz Gaytan Dictated By: Lexx Livingston MD Dictated Date/Time: 02/07/22 7:58 pm Reviewed By: Lexx Livingston MD Signed By: Lexx Livingston MD Signed Date/Time: 02/07/22 7:58 pm Transcribed By: MAGAN Transcribed Date/Time: 02/07/22 7:58 pm Vital Signs Most recent to oldest [Reference Range]: 1 2 3 Height 158 cm (02/08/22 1:15 PM) 158 cm (02/07/22 7:33 PM) 158 cm (02/07/22 7:28 PM) Weight 134.8 kg (02/08/22 1:15 PM) 134.8 kg (02/07/22 7:33 PM) 134.8 kg (02/07/22 7:28 PM) Oxygen Saturation [94-100 %] 99 % (02/08/22 1:15 PM) 100 % (02/08/22 10:07 AM) 100 % (02/08/22 8:33 AM) Pulse Rate [55-90 bpm] 67 bpm (02/08/22 1:15 PM) 59 bpm (02/08/22 10:07 AM) 56 bpm (02/08/22 8:33 AM) Body Mass Index [18.5-24.99] 54 *>HHI* (02/08/22 1:15 PM) 54 *>HHI* (02/07/22 7:28 PM) Blood Pressure [90-138/55-84 mm Hg] 101/64mm Hg (02/08/22 1:15 PM) 121/72mm Hg (02/08/22 10:07 AM) 112/66mm Hg (02/08/22 8:33 AM) Respiratory Rate [16-30 br/min] 16 br/min (02/08/22 1:15 PM) 20 br/min (02/08/22 10:07 AM) 17 br/min (02/08/22 8:33 AM) Temperature [96.8-100.4 DegF] 97.7 DegF (02/08/22 1:15 PM) 97.8 DegF (02/08/22 6:28 AM) 97.7 DegF (02/08/22 3:35 AM) Mode of Delivery (Oxygen) Room air (02/08/22 1:15 PM) Room air (02/08/22 10:07 AM) Room air (02/08/22 8:33 AM) Blood pressure sites Arm, left (02/08/22 1:15 PM) Arm, right (02/08/22 6:28 AM) Arm, left (02/08/22 3:35 AM) Temperature Route Oral (02/08/22 1:15 PM) Oral (02/08/22 6:28 AM) Oral (02/08/22 3:35 AM) Dry Weight 134.8 kg (02/08/22 1:15 PM) 134.8 kg (02/07/22 7:33 PM) 134.8 kg (02/07/22 7:28 PM) Weight Obtained Via Standing scale (02/07/22 7:28 PM) Dry Weight Obtained Via Standing scale (02/07/22 7:28 PM) Social History Social History Type Response Smoking Status Never smoker entered on: 02/12/14 Sex
--- NOTE | 2024-04-01 10:40 | MHC.SHP ---
Pre-Procedural Eval Section A - 24 Hr Update-Section A only Date of Service: 04/01/24 The patient is an INPATIENT: Yes The patient has been examined within 24 hours of the surgical procedure. The History & Physical has been completed within 30 days and I have reviewed it.: Yes Section B - Complete if H&P > 30 days Chief Complaint: obesity Relevant Family History (Specify if Yes): No Relevant Social History: None Present Medications: None Medical History: No relevant PMH History of Previous Operations: Relevant previous surgery/procedure and date(s) (lap gastric bypass) Allergies: Allergies Allergy/AdvReac Type Severity Reaction Status Date / Time No Known Allergies Allergy Verified 04/01/24 10:20 Review of Systems Sugical H&P ROS: Negative: Constitution, Cardiovascular, Respiratory, Neurological, Psychiatric, Hem-Onc, Allergic/Immunologic, Gastrointestinal, Genitourinary, Musculoskeletal, Integumentary, Endocrine and Eyes/Ears/Nose/Throat Exam Surgical H&P Exam: Normal: HEENT, Normal: Heart, Normal: Lungs, Normal: Extremities, Normal: Abdomen, Normal: Skin and Normal: Neurological Plan Diagnosis/Plan: Unchanged I have reviewed the history and physical and performed a pertinent physical examination on my patient. No changes have occurred unless specified. Time Spent With Patient Time: Total time managing care of this patient today ____ minutes.
[2024-04-01] MEDS: Lactated Ringers 1,000 ML 999 ML IV (10:45)
[2024-04-01] MEDS: Aprepitant 32 MG/4.4 ML VIAL IVPUSH (10:46)
[2024-04-01] MEDS: Lactated Ringers 1,000 ML 80 ML IVCONT (10:48)
--- NOTE | 2024-04-01 11:19 | PM.OP ---
Brief Operative Note Date of Service: 04/01/24 Pre-op diagnosis: Morbid obesity Post-op diagnosis: same Procedure: PROCEDURE: Eevwqamu-exkwzb-hijsisvgmij, extensive laparoscopic lysis of adhesions and laparoscopic sleeve gastrectomy INDICATIONS: This is a 38 year-old female with a BMI of 52.7 kg/m2, history of failed gastric bypass surgery and associated comorbid conditions as described previously. After appropriate workup and a 29.3 lbs preoperative weight loss, or 10.2% TBWL was performed, the patient was electively scheduled for laparoscopic, possibly open sleeve gastrectomy of the gastric pouch. The risks and complications of the procedure were discussed with the patient in advance, particularly the possibility of ; pulmonary embolism; staple line leak; bleeding; GERD; cardiac, pulmonary, or renal complications; as well as long-term problems such as insufficient weight loss, vitamin deficiency, strictures, or ulcers. The patient understood all the risks, and was in agreement to proceed with surgery. DESCRIPTION OF PROCEDURE: After informed consent was obtained from the patient, the patient was given preoperative antibiotics, and was transferred to the operating room. After successful induction of general anesthesia, pneumatic compressive devices were placed on both lower extremities. An upper endoscopy was performed next. The oropharynx and esophagus appeared to be within normal limits. There was no significant diaphragmatic hernia presentI. The stomach was entered. Then after all fluid and air were suctioned and the stomach was fully decompressed, the scope was withdrawn and secured in the mid esophagus. The patient was then prepped and draped in the usual sterile manner, and abdominal access was established at the right upper quadrant with the Carl technique. A 12 mm blunt port was inserted, and the abdomen was insufflated with CO2 to a pressure of 15 mmHg. Under direct visualization, additional ports were placed, specifically two 5 mm Versi-step ports to the left upper quadrant, and a 5 mm Versi-Step port to the right upper quadrant. 1% lidocaine plain was used to infiltrate all port sites as well as all fascia defects. Following that, the patient was placed in a steep reverse Trendelenburg position. An additional 5 mm port was placed to the right flank for the Mediflex retractor that was used to retract the left lobe of the liver. There were adhesions between the undersurface of the left lobe of the liver which was lysed with the Thunderbeat. Once this was done the liver retractor was re-positioned to get exposure to the hiatal area. Some omental fat overlying the Kathy limb was mobilized and the gastro-jejunostomy was identified. I continued by dissecting between the greater omentum and the gastric pouch . There were some posterior short gastric vessels that were not previously divided. Those were clipped and divided with the Thunderbeat. Before that, the location of the left gastric vessels had been identified and they were preserved. Separation of the gastric pouch from the spleen was difficult because of the severe fibrotic reaction from the use of Peristrips at the previous operation and additionally because the previous surgeon did not resect the stomach towards the angle of his but towards the greater curvature of the stomach. As a result, an upper pole splenic vessel attached to the gastric pouch had to be divide allowd and it allowed exposure to the left allison. The division of this vessel, did create an ischemic wedge at the upper pole of the spleen. However, the remaining spleen was viable and it remained so throughout the case. The gastro-esophageal fat pad was opened with the ultrasonic device (Thunderbeat, Olympus) and the anterior esophagus and hiatus were exposed. The angle of His was opened with the ultrasonic device the fundus of the stomach from any diaphragmatic and splenic attachments. Adhesiolysis took approximately 90 min to complete. The left and right allison were dissected and no obvious diaphragmatic hernia was noted. There was significant redundancy of the stomach laterally and posteriorly. The redundant stomach was then divided with three Endo CLARISA-45 articulating purple loads using the SIGNIA stapler and loads. Every effort was made that the gastric sleeve had a tubular shape and an even caliber throughout. Once the sleeve resection was completed, the staple line of the gastric sleeve was reinforced with Hemoclips. The resected stomach was retrieved without difficulty from the Carl port. ?An upper endoscopy was performed. There was no narrowing at the GE junction. The scope was easily advanced all the way to the GJ anastomosis which was clearly visualized. There was no narrowing anywhere and the pouch's caliber was even throughout. The pouch's staple line was inspected and there was no evidence of ischemia, bleeding or dehiscence. At that point the gastroscope was withdrawn from the patient?s mouth while we were decompressing the bowel and the stomach from any remaining air. I looked into the lesser sac to see how the sleeve was situating and it was situating well. There was no bleeding from the staple line, spleen, or short gastric vessels. The Mediflex retractor was removed, and the undersurface of the liver was inspected and there was no bleeding. The patient was placed in supine position. I closed the fascial defect of the 12 mm port site with a figure of eight #1 Polysorb suture. Then 30cc Ropivacaine plain with 10 mg of Dexamethasone were used to infiltrate the fascial closure as well as all skin incisions. A total of 7ml Zynrelef was applied in the Carl wound. At this point, the abdomen was deflated, all ports were removed under direct vision, and no bleeding was noted from any of the port sites. The skin incisions were closed with 4-0 absorbable monofilament sutures. Steri-Strips and OpSites were used to cover all incisions. The patient was extubated and was transferred in stable condition to the recovery room for further care. I was present and performed all hobson parts of the procedure. Mr. Graff was the clinical medical assistant. There were no residents to assist with this case. Montrell Dunlap MD, PhD, FACS Surgeon: Crow Dunlap MD Anesthesia: GETA, local and other (TAP block and ml Zynrelef) Was an Dairy Processing Equipment Operator used for this Procedure?: No Dairy Processing Equipment Operator: Lexx Graff Estimated blood loss (mL): 10 IV fluids (mL): 3,000 Urine output (mL): 200 Pathology: other (Stomach) Condition: stable Disposition: PACU
--- NOTE | 2024-04-01 11:23 | P.PNGS_ITS ---
Subjective Subjective Date of Service: 04/02/24 Interval history: Feels well. Mild incisional pain. She is tolerating phase 1 bariatric diet Physical Exam 2 Vital Signs: Vital Signs: Last Vital Signs Temp 97.6 F 04/01/24 10:36 Pulse 76 04/01/24 10:36 Resp 16 04/01/24 10:36 BP 118/69 04/01/24 10:36 Pulse Ox 97 04/01/24 10:36 O2 Del Method Room Air 04/01/24 10:36 BMI result Body Mass Index 47.0 GI: Inspection: Yes normal to inspection, Yes incision (clean, dry and intact) and Yes obesity Palpation (GI): Soft to palpation Extrem: Right lower extremity: normal to inspection (no calf tenderness) L eft lower extremity: normal to inspection (no calf tenderness) Objective Data Active Medications Lactated Ringer's (Lr) 1,000 mls @ 999 mls/hr IV .Q1H1M [facility] Stop: 04/01/24 12:30 Last Admin: 04/01/24 10:45 Dose: 999 mls/hr Documented By: ARCELIA Lactated Ringer's (Lr) 1,000 mls @ 80 mls/hr IVCONT .[id number] [facility] Last Admin: 04/01/24 10:48 Dose: 80 mls/hr Documented By: ARCELIA Labs 04/02/24 05:27 04/02/24 05:27 Procedures Date of Service Date of Service: 04/02/24 Progress Note: A&P Assessment and plan (1) Morbid obesity: Status: Acute Assessment and Plan: s/p laparoscopic sleeve gastrectomy, lysis of adhesions and gastropexy Doing well Will check am labs and if OK the patient will be discharged home (2) GERD (gastroesophageal reflux disease): Status: Acute (3) S/P laparoscopic sleeve gastrectomy: Status: Acute (4) Intra-abdominal adhesions: Status: Acute Time Spent With Patient Time: Total time managing care of this patient today ____ minutes. Quality Stroke Does the patient have a stroke diagnosis?: No VTE Prior VTE?: No VTE Risk Level:: Surgical - moderate VTE Device Contraindication: N/A - Device Ordered VTE Drug Contraindication: Treatment Not Indicated
--- NOTE | 2024-04-01 11:58 | P.CONAN_ITS ---
HPI - Anesthesia Eval Consult details Narrative: 38 yo female patient for EGD, Laparoscopic Revision of Gastric bypass to sleeve gastrectomy, possible diaphragmatic hernia repair, possible ventral hernia repair, possible open PMFSH Active Problems Active Problems: All Active Problems GERD (gastroesophageal reflux disease) (Acute) Constipation (Acute) Esophagitis determined by biopsy (Acute) Hypoglycemia after GI (gastrointestinal) surgery (Acute) Pre-op evaluation (Acute) Morbid obesity BMI 47 Hiatal hernia (Acute) H/O partial nephrectomy (Acute) Gastric bypass status for obesity (Acute) Past Medical History Medical History Hiatal hernia GERD (gastroesophageal reflux disease) Morbid obesity Family History Family History Mother Kidney failure Diabetes Hypertension Congestive heart failure Father Brain aneurysm AIDS Son Diabetes Son Asthma Daughter No problems noted. Family history of problems with anesthesia: No Surgical History Surgical History History of esophagogastroduodenoscopy (EGD) (10/17/23) H/O partial nephrectomy H/O tubal ligation History of cholecystectomy Gastric bypass status for obesity History of Problems with Anesthesia: No Social History Social History Household Members: Spouse and Children Housing: House Are you a primary manager primary care to a significant other at home: Yes (mother- to assist post-op) Alcohol intake: never Patient Tobacco Use Status: Never used Tobacco Use of substances other than those prescribed or required for medical reasons: No Have you been hit, kicked, punched, or otherwise hurt by someone within the past year? If so, by whom?: No Are you DNR?: No Advance Directives: No Advance Directives Information Provided: Yes Advance Directives on File: No Recently lost weight without trying: No Patient : No FDLMP: 03/14/2024 : No Poor oral hygiene: No Current occupational status: employed Current occupation: [employer] Allergies Allergy/AdvReac Type Severity Reaction Status Date / Time No Known Allergies Allergy Verified 04/01/24 10:20 Active Medications: Current Medications Lactated Ringer's (Lr) 1,000 mls @ 999 mls/hr IV .Q1H1M [facility] Stop: 04/01/24 12:30 Last Admin: 04/01/24 10:45 Dose: 999 mls/hr Lactated Ringer's (Lr) 1,000 mls @ 80 mls/hr IVCONT .[id number] [facility] Last Admin: 04/01/24 10:48 Dose: 80 mls/hr Home Medications ?Medication ?Instructions ?Recorded ?Confirmed ?Last Taken ?Type multivitamin 1 tab PO DAILY 12/27/23 03/25/24 03/31/24 History famotidine 20 mg tablet 20 mg PO DAILY 02/15/24 03/25/24 03/31/24 History Exam Height,Weight and Vital Signs: Height 5 ft 2 in Weight 116.573 kg Last Vital Signs Temp 97.6 F 04/01/24 10:36 Pulse 76 04/01/24 10:36 Resp 16 04/01/24 10:36 BP 118/69 04/01/24 10:36 Pulse Ox 97 04/01/24 10:36 O2 Del Method Room Air 04/01/24 10:36 Pertinent Lab Results Pertinent Lab Results: Laboratory Tests 03/25/24 03/25/24 07:22 07:30 WBC 7.9 RBC 4.74 Hgb 13.3 Hct 40.0 MCV 84.4 MCH 28.1 MCHC 33.3 RDW 13.9 Plt Count 298 MPV 10.8 Immature Gran % (Auto) 0.1 Neut % (Auto) 57.3 Lymph % (Auto) 30.1 Vernon % (Auto) 7.6 Eos % (Auto) 4.5 H Baso % (Auto) 0.4 Lymph # (Auto) 2.4 Vernon # (Auto) 0.6 Eos # (Auto) 0.4 Baso # (Auto) 0.0 Abs Immat Gran (auto) 0.01 Absolute Neuts (auto) 4.6 Absolute Nucleated RBC 0.000 Nucleated RBC % (auto) 0.0 PT 14.3 H INR 1.2 H APTT 29.3 Sodium 141 Potassium 3.9 Chloride 109 H Carbon Dioxide 26 Anion Gap 10 L BUN 13 Creatinine 0.70 Estim Creat Clear Calc TNP Estimated GFR > 60 Random Glucose 92 Estimat Average Glucose 103 Hemoglobin A1c % 5.2 Insulin Level 24 Calcium 9.1 Total Bilirubin 0.3 AST 15 ALT 17 Alkaline Phosphatase 101 C-Reactive Protein 0.80 H Total Protein 7.5 Albumin 3.8 Triglycerides 106 Cholesterol 123 LDL Cholesterol, Calc 71 HDL Cholesterol 31 L TSH 2.19 Blood Type B Positive Antibody Screen NEGATIVE Airway Mallampati Class: II TM Dist: >3cm Neck ROM: Full Loose/Missing/Broken Teeth: No (Denies broken, loose, missing teeth) Heart: RRR Lungs: CTAB Assessment and Plan Assessment Anesthesia Assessment: Anesthesia Plan Discussed and Chart Reviewed Final Anesthetic Review Family History of Problems with Anesthesia: No History of Problems with Anesthesia: No NPO: Yes ASA Class: III Final Preanesthetic Review: No Changes in Pt Med Stat, Meds/Allgs Chart Reviewed, Consent Obtained/Reviewed and Anes Risks/Benef Reviewed Patient Risk: Intermediate Procedure Risk: Intermediate Assessment/Block/Sedation in SS: Assess/Block/Sedation-SS Anesthetic Plan Anesthetic Plan: GA Disposition: Standard PACU
--- NOTE | 2024-04-01 15:42 | P.DS_ITS ---
DS: Providers Provider Date of Service: 04/02/24 Date of admission: 04/01/24 10:18 Primary care physician: Robel Rodriguez MD DS: Diagnosis Discharge Diagnosis (1) Morbid obesity: Status: Acute (2) GERD (gastroesophageal reflux disease): Status: Acute DS: Summary Hospital Course Hospital Course: ADMITTING DIAGNOSIS: morbid obesity, ? DISCHARGE DIAGNOSIS: same, s/p laparoscopic sleeve gastrectomy revision of gastric pouch ? PAST SURGICAL HISTORY: gastrioc bypass, left partial nephrectomy, tubal ligation, cholecystectomy ? PROCEDURE: upper endoscopy, laparoscopic sleeve gastrectomy revision of gastric pouch ? DISCHARGE SUMMARY: ? History of Present Illness: ? The patient is a?38 year-old woman with a BMI of?52.6 kg/m2 and associated co- morbidities as described above. The patient had extensive work-up,lost?30.8 lbs preoperatively and was electively scheduled for laparoscopic, possible open sleeve gastrectomy and gastropexy. Risks and complications of the surgery were discussed with the patient in advance, particularly the possibility of , pulmonary embolism, anastomotic leak, bleeding, bowel injury, GERD, cardiac, renal or pulmonary complications. The patient understood all the risks and was in agreement with the surgical plan. ? Hospital Course: ? The patient underwent an uneventful laparoscopic sleeve gastrectomy revision of gastric pouch on the day of admission. Postoperatively, the patient was transferred to the surgical floor. The patient received IV Acetaminophen and IV dilaudid for pain control. Patient was started on bariatric phase 1 diet POD #0. On postoperative day one, the patient was feeling well without nausea, vomiting, fevers, or tachycardia. The patient had some mild incisional pain and the abdomen was soft. ? On the morning of postoperative day one, the patient was continued on 1 ounce of water or ice every half hour. During the day, the patient did fairly well, having some incisional pain, but able to ambulate adequately and to tolerate liquids well. ? Since the patient is doing well, we decided that the patient was ready to be discharged. The patient was given instructions to follow-up with me next week and to call my office for any fever over 101, persistent abdominal pain, nausea, vomiting, GERD, symptoms of DVT such as calf tenderness, or leg swelling, or pulmonary embolism such as chest pain or shortness of breath. The patient was also instructed to drink 40-60 ounces of liquids per day using the 1-ounce cups. The patient had been given prescriptions for Tylenol for pain, Zofran prn for nausea, and pantoprazole and carafate previously. The patient was encouraged to ambulate and use the incentive spirometer. The patient was allowed to shower, but no baths, and encouraged to stay active at home. All of these instructions were given to the patient personally. All questions were answered and the patient understood all instructions, the instructions were also given to the patient in print. Time Attestation Total time managing care of this patient today: 25 mintues. Discharge Coordination Time (in mins): 25 Quality: Safe Use of Opioids Does Pt have an Active Cancer Diagnosis on the Problem List?: No Quality: Stroke Does the patient have a stroke diagnosis?: No Physical Exam Vital Signs: Vital Signs: Last Vital Signs Temp 97.6 F 04/01/24 10:36 Pulse 76 04/01/24 10:36 Resp 16 04/01/24 10:36 BP 118/69 04/01/24 10:36 Pulse Ox 97 04/01/24 10:36 O2 Del Method Room Air 04/01/24 10:36 BMI result Body Mass Index 47.0 DS: Data Data Completed and Pending Pending studies at discharge: Pending at discharge 04/01/24 15:05 Surgical [PTH] Routine Discharge Plan Discharge Anticipated Discharge Date/Time: 04/02/24 10:00 Patient Disposition: Home, Self-Care Discharge Diagnosis: s/p laparoscopic sleeve gastrectomy revision of gastric pouch Referrals: Robel Rodriguez MD [Primary Care Provider] - 1 Week Discharge Medications: Continued pantoprazole 40 mg tablet,delayed release (DR/EC) 40 mg PO DAILY Qty: 90 0RF sucralfate 100 mg/mL suspension 10 ml PO BID Qty: 600 2RF ondansetron 4 mg tablet,disintegrating 4 mg PO Q12H Qty: 20 0RF Discontinued multivitamin Tablet 1 tab PO DAILY docusate sodium [Colace] 100 mg capsule 100 mg PO DAILY Qty: 90 0RF Discharge Orders: Discharge Order (Routine); Ordered 04/02/24 Ordered By: Crow Dunlap Activity on Discharge: No heavy lifting Stand Alone Forms: Patient Portal Discharge page Print Language: Spanish Care Plan Goals: weight loss Health Concerns: morbid obesity Plan of Treatment: No tub baths, sex or returning to work until discussed at first post op appointment. No exercise, alcohol, tobacco or illegal drug use. Continue to use incentive spirometer hourly while awake. Walk in home for 5- 10 minutes every 2 hours during the first week. Follow all instructions in the bariatric handbook and call with any questions.Discharge Instructions 1. Please call your doctor or come back to the emergency room should any new symptoms arise. 2. You will receive a courtesy call from [facility] 24-48 hours after discharge. 3. Activity: abstain from alcohol, practice limited stair climbing, no bending, no driving, no exercise, no illicit substances, no lifting, no sex, no tub bath, no work. 4. Diet: continue as discussed with Dr. Dunlap. 5. Dressing Change/Wound Care: Your incision is covered by clear bandages and guaze underneath. If the area is tender, you may apply an ice pack for short intervals (no more than 20 minutes on, followed by at least 20 minutes off). Do not apply heat. Do not use creams, lotions, or topical antibiotics unless instructed to do so by your surgeon. These can cause infection or allergic reaction. 6. Call your doctor if: - Your temperature exceeds 101.5 F - You experience excessive pain or swelling - You have an unexpected reaction to medication - You have excessive bleeding - You experience continued vomiting/nausea - Your incision begins to separate - Your incision shows signs of infection such as increased redness, swelling, excessive pain, heat, or drainage (light blood or clear fluid is normal) 7. General instructions: No lifting greater than 5 lbs for 1 week and not more than 20lbs the next 3?weeks. No driving until seen at the office in 5-7 days after surgery. If you do not move your bowels in the next 2 days, please tell?Dr. Dunlap. Please walk around your home every hour or two to prevent blood clots from forming in your legs. You do not need to wake from sleeping to walk. Please sleep in a bed or couch to prevent kinking at the hips and knees. Please take your incentive spirometer (your lung primer powder blender wet) home with you and use it for the next few days to prevent pneumonia. You may shower, no hot tubs, baths or swimming pools.?Please follow the post op diet instructions you are?given by Dr Dunlap? and text me daily at 5-6pm for an update.?If you have any issues or concerns or questions please communicate this to him via text.? The Celebrate shakes have all of the bariatric vitamins you need if you consume these shakes. If you are drinking other protein shakes, you will need to purchase the Celebrate multivitamins and calcium that are available in the hospital gift shop on the first floor of the main hospital.??Do not take anything without first discussing with Dr Dunlap. Please make sure you are consuming at least 40 ounces of fluids per day starting the?day AFTER your discharge from the hospital. Always drink 1-2 ml per minute using the 5ml?syringe. If you drink faster you may experience?bloating,?gas pain, burping, nausea or heartburn. In that case please slow down your pace and use the syringe to?understand better the?proper?pace and volume of drinking. Do not hesitate to contact the office with any questions at . The patient's medical history has been reviewed and they are considered low risk for post op DVT and therefore DVT prophylaxis is not considered necessary. Travel after surgery was reviewed. The patient has not disclosed any travel plans during the first 30 days after surgery and they have been advised that within the first 30 days after surgery any bus, plane, train or car travel over 2 hours in duration is contraindicated due to the possibility of developing blood clots from immobility. Any travel, needs to include periods of ambulation of 10 minutes in duration every 2 hours.? The patient was instructed to discuss any plans for travel during this period with their bariatric surgeon. Assessment: stable s/p laparoscopic sleeve gastrectomy revision of gastric pouuch Discharge Date/Time: 04/02/24 09:10
[2024-04-01 16:04] LABS: Hematocrit 38.7 % (37.0-47.0); Hemoglobin 13.1 g/dl (12.0-16.0)
[2024-04-01 16:24] LABS: Anion Gap 10 (12-20); Blood Urea Nitrogen 9 mg/dL (9-16); Calcium 8.7 mg/dL (8.4-10.2); Carbon Dioxide 26 mmol/L (22-29); Chloride 106 mmol/L (96-108); Creatinine Clr Calc Pharmacy 118.3; Estimated Glomerular Filt Rate > 60; Glucose Random 135 mg/dL (60-115); Potassium 4.4 mmol/L (3.3-5.1); Sodium 138 mmol/L (135-145)
[2024-04-01] MEDS: Lactated Ringers 1,000 ML 100 ML IVCONT (16:38)
--- NOTE | 2024-04-01 17:11 | PHA.MEDREC ---
Pharmacy Consult ? Medication Reconciliation Pharmacy has completed the medication reconciliation. Confirmed medications with patient. Patient was a little sleepy but otherwise seemed compliant when I was asking questions about her meds. She was able to tell me that her Dr today prescribed ondansentron 4mg 1Q12H to start after surgery. Patient confirmed she took everything yesterday.
[2024-04-01] MEDS: ceFAZolin Sodium/Dextrose,Iso 2 GM/50 ML PIGGYBACK IV (17:41)
[2024-04-01] MEDS: Acetaminophen 1,000 MG/100 ML PIGGYBACK 16.7 MG IV ×2 (18:11→23:28)
[2024-04-01] MEDS: 0.9 % Sodium Chloride Flush 3 ML SYRINGE IVFLUSH (20:21)
[2024-04-01] MEDS: Famotidine/PF 20 MG/2 ML VIAL IVPUSH (20:21)
[2024-04-02] MEDS: Lactated Ringers 1,000 ML 100 ML IVCONT (02:17)
[2024-04-02 02:55] VITALS: BP 113/66; PULSE 60; RESP 16; TEMP 36.6; O2SAT 95
[2024-04-02] MEDS: Acetaminophen 1,000 MG/100 ML PIGGYBACK 16.7 MG IV (05:20)
[2024-04-02 06:59] LABS: MANUAL DIFF FLAG NO
[2024-04-02] MEDS: Famotidine/PF 20 MG/2 ML VIAL IVPUSH (07:13)
[2024-04-02 07:23] VITALS: BP 118/74; PULSE 51; RESP 16; TEMP 36.2; O2SAT 97
[2024-04-02 07:31] LABS: Basophils Percent Auto 0.1 % (0-2); Hematocrit 38.2 % (37.0-47.0); Hemoglobin 13.1 g/dl (12.0-16.0); Imm Gran Abs Auto 0.08 X10*3/uL (0.00-0.03); Imm Gran Pct Auto 0.5 % (0.0-0.4); Lymphocytes Absolute Auto 1.1 X10*3/uL (1.2-4.9); Lymphocytes Percent Auto 6.7 % (20-40); Mean Corpuscular HGB Conc 34.3 g/dl (31.0-35.0); Mean Corpuscular Hemoglobin 28.5 pg (27.0-33.0); Mean Corpuscular Volume 83.2 fL (80.0-98.0); Mean Platelet Volume 11.1 fL (9.4-12.3); Monocytes Absolute Auto 0.5 X10*3/uL (0.1-1.2); Monocytes Percent Auto 2.8 % (2-11); Neutrophils Absolute Auto 15.3 x10*3/uL (2.0-8.3); Neutrophils Percent Auto 89.9 % (45-73); Platelet Count 337 X10*3/uL (160-400); Red Blood Count 4.59 X10*6/uL (4.20-5.50); Red Cell Distribution Width 13.5 % (11.0-16.0)
[2024-04-02 07:41] LABS: Anion Gap 12 (12-20); Blood Urea Nitrogen 7 mg/dL (9-16); Calcium 9.4 mg/dL (8.4-10.2); Carbon Dioxide 25 mmol/L (22-29); Chloride 106 mmol/L (96-108); Creatinine Clr Calc Pharmacy 123.1; Estimated Glomerular Filt Rate > 60; Glucose Random 92 mg/dL (60-115); Potassium 4.4 mmol/L (3.3-5.1); Sodium 139 mmol/L (135-145)
--- NOTE | 2024-04-02 14:16 | HO.POSTANES ---
Post Anesthesia Evaluation Post Anesthesia Evaluation Date of Service: 04/02/24 Vital Signs: Vital Signs Temp Pulse Resp BP Pulse Ox O2 Del Method 04/02/24 07:23 97.2 F 51 16 118/74 97 Room Air 04/02/24 02:55 97.9 F 60 16 113/66 95 Room Air Anesthesia: General Endotracheal-GETA Mental Status: Awake Pain Control: Satisfactory Nausea/Vomiting: None Hydration: Adequate Anesthesia-Related Issues: No Anes. Related Issues Comments: pt already discharged. spoke to nurse pt did well.
== END 2024-04-02 09:10 | disposition home or self-care (01) | DRG 403 ==
LOC: HO.SSSA 14:41 → HO.S3 15:48
PROVIDERS: Physician Assistant Surgical; Admitting Provider Surgery; PCP Internal Medicine; Visit Provider Surgery
PROC: 0DB64Z3 Excision of Stomach, Percutaneous Endoscopic Approach, Vertical (ICD-10-PCS; principal; 2024-04-01 12:10)
DX: E66.01 Morbid (severe) obesity due to excess calories (principal); K21.9 Gastro-esophageal reflux disease without esophagitis; K66.0 Peritoneal adhesions (postprocedural) (postinfection); Z68.42 Body mass index [BMI] 45.0-49.9, adult; Z79.899 Other long term (current) drug therapy
CPT/HCPCS: 0241U; 36410; 36415; 71260; 71275; 74160; 74176; 74177; 74240; 80048; 80053; 80061; 81001; 83036; 83525; 83605; 83735; 83880; 84443; 84484; 84702; 85014; 85018; 85025; 85610; 85652; 85730; 86140; 86850; 86900; 86901; 87040; 88307; 88342; 93005; 99285; C1751; C9088; C9145; J0131; J0690; J0696; J1100; J1170; J1652; J1836; J1956; J2250; J2405; J2470; J2704; J2795; J3010; J3411; J3420; J7120; Q9967

== ENCOUNTER → 2024-04-01 10:18 | Outpatient (BNV) | payer OTHER, SELFPAY | PROVIDERS: Admitting Provider Surgery; PCP Internal Medicine; Visit Provider Surgery | DX: K21.9 Gastro-esophageal reflux disease without esophagitis (principal) | CPT/HCPCS: 43659; 43775; 99024; 99499 ==

== ENCOUNTER 2024-04-07 15:05 | Inpatient (IN) | payer OTHER, SELFPAY ==
--- NOTE | 2024-04-07 | ECG_ITS ---
Test Reason : tachycardia Blood Pressure : / mmHG Vent. Rate : 114 BPM Atrial Rate : 114 BPM P-R Int : 176 ms QRS Dur : 096 ms QT Int : 320 ms P-R-T Axes : 029 049 022 degrees QTc Int : 441 ms Sinus tachycardia Cannot rule out Anterior infarct , age undetermined Abnormal ECG When compared with ECG of 07-AUG-2023 10:13, Vent. rate has increased BY 54 BPM Referred By: Generic ED Physician Electronically Signed By:Balaji Simmons
--- NOTE | ~2024-04-07 | CT_ITS ---
EXAMINATION: CT angio chest PE protocol, CT abdomen pelvis w IV con CLINICAL INFORMATION: Status post surgery. Positive troponin. Question pulmonary embolism, myocarditis COMPARISON: Abdominal ultrasound 08/29/2023, CT abdomen pelvis 08/29/2018 TECHNIQUE: Prior to contrast administration, noncontrast localization images were obtained. Subsequently, multidetector volumetric imaging was performed from the thoracic inlet to below the diaphragms following the administration of 85 mL Omnipaque 350 intravenous contrast. This was followed by multidetector acquisition of the abdomen and pelvis. No contrast reaction reported Sagittal, coronal, and MIP oblique sagittal reformatted images were obtained on the CT workstation, uploaded to PACS, and reviewed. Total exam dose-length product 340 mGy-cm FINDINGS: QUALITY OF STUDY/CONTRAST BOLUS: Suboptimal. CHEST: CHEST WALL: Unremarkable. AXILLA: No lymphadenopathy. PULMONARY ARTERIES: No pulmonary embolism. MEDIASTINUM: Heart is normal in size. No mediastinal lymphadenopathy. No hilar lymphadenopathy. CORONARY ARTERY CALCIFICATION: No significant coronary artery calcification appreciated on this exam. PLEURA: There is a small/trace left effusion LUNGS: Motion artifact degrades image quality. Atelectasis without consolidation. No dominant suspicious pulmonary nodules. ABDOMEN AND PELVIS: ABDOMINAL AND PELVIC WALL: There is inflammatory changes with small pockets of gas in the mid abdomen just right of midline correlate with history of recent surgery or injections. LIVER AND BILIARY TREE: Unremarkable. GALLBLADDER: Status post cholecystectomy. PANCREAS: Unremarkable. SPLEEN: Unremarkable. ADRENAL GLANDS: There is a 2 cm right adrenal nodule which appears to be mildly increased from the 08/29/2018 exam when it measured 1.4 cm KIDNEYS AND URETERS: Unremarkable. GASTROINTESTINAL TRACT: Small hiatal hernia. The patient appears to be status post gastric bypass surgery. There is a small pocket of gas in the left upper quadrant adjacent to suture material that may be extraluminal (15, 17/96). There are surrounding inflammatory changes, no extraluminal contrast is visualized. There is oral contrast within loops of small bowel. No high-grade obstruction. VASCULAR: Unremarkable. LYMPH NODES: No lymphadenopathy. FREE FLUID: There is trace fluid in the pelvis. BLADDER: Unremarkable. PELVIC VISCERA: Unremarkable. OSSEOUS STRUCTURES: Minimal scoliotic curvature in the spine. CT/CT angio chest PE protocol IMPRESSION: 1. No evidence of pulmonary embolism. 2. The patient is status post gastric bypass surgery. There is a small pocket of gas in the left upper quadrant adjacent to suture material that may be extraluminal. There are surrounding inflammatory changes, no extraluminal contrast is visualized. There is oral contrast within loops of small bowel. 3. There is a 2 cm right adrenal nodule which appears to be mildly increased in size from the 08/29/2018 exam when it measured 1.4 cm. 4. There is a small/trace left pleural effusion. 5. Inflammatory changes with small pockets of gas in the mid abdomen just right of midline, correlate with history of recent surgery or injections. VTE: negative.
--- NOTE | ~2024-04-07 | CT_ITS ---
EXAMINATION: CT CHEST WITH IV CONTRAST CT ABDOMEN AND PELVIS WITHOUT IV CONTRAST CLINICAL INFORMATION: History of gastric bypass revision surgery. Evaluate for abdominal fluid collection. Also, leukocytosis and pleural effusion on prior exam. Evaluate for pneumonia. COMPARISON: 04/07/2024. TECHNIQUE: Multidetector CT imaging examination of the chest performed with intravenous administration of 65 mL Omnipaque 350. Also, multidetector CT imaging examination of the abdomen and pelvis performed without use of IV contrast. Coronal and sagittal reformatted images were generated at the technologist's workstation and submitted for review. This CT examination was performed using dose optimization techniques as appropriate, variously including the following: *Automated exposure control *Adjustment of mA and/or kV according to patient size (this includes techniques or standardized protocols for targeted exams where dose is matched to indication/reason for exam; i.e. extremities or head) *Use of iterative reconstruction technique DLP: 1056 mGy-cm FINDINGS: CHEST - LUNGS AND PLEURA: The patient has large body habitus. Findings in the chest are similar to those seen on 04/07/2024. Persistent small left pleural effusion and trace left pleural effusion with mild atelectasis in the dependent aspect of each lower lobe. Lungs have slightly mosaic attenuation and the scattered minimal hazy opacities are likely from atelectasis. No focal consolidation. No pulmonary edema, pneumothorax or other significant change. CARDIOVASCULAR: The heart size is normal. No pericardial effusion. Pulmonary arteries and thoracic aorta are normal in caliber. MEDIASTINUM/LOWER NECK: No evidence of mediastinal mass. The esophagus has normal wall thickness. Thyroid gland is unremarkable. LYMPHATICS: No pathologic sized axillary, hilar or mediastinal lymph nodes. BONES AND THORACIC SOFT TISSUES: No acute or suspicious osseous abnormality within the thorax. ABDOMEN AND PELVIS - HEPATOBILIARY: No acute abnormalities within the liver. No mass or abscess. The patient has a large body habitus and the right lobe of liver is 21 cm in craniocaudal dimension. Gallbladder is surgically absent. No dilated bile ducts. PANCREAS: Pancreas is unremarkable. SPLEEN: Mildly enlarged, 14 cm maximum dimension. ADRENAL GLANDS: A nodule of the right adrenal gland measures 1.7 cm transverse dimension and has a density of 7 Hounsfield units consistent with lipid rich adenoma. No adrenal imaging follow-up recommended. KIDNEYS AND URETERS: Kidneys are normal in size and attenuation. No nephrolithiasis, hydronephrosis or perinephric fluid collection. BOWEL AND PERITONEUM: There are surgical changes from Kathy-en-Y gastric bypass. The previously administered oral contrast is now seen within the nondilated colon and rectum. There is no extravasation of contrast into the peritoneal cavity. There is grossly intact appearance of the gastrojejunal anastomosis on this current examination which is performed without use of any additional oral contrast. The collection of fluid and gas along the lateral surface of the proximal stomach has increased compared to 04/07/2024. There is no contrast material within this collection which measures up to approximately 2.5 cm transverse and 5.6 cm AP. ABDOMINAL WALL: A few foci of postoperative gas are present in subcutaneous tissues of the left abdominal wall. Mild edema of some of the subcutaneous tissues. VESSELS: Abdominal aorta is normal in caliber. LYMPH NODES: No pathologic sized lymph nodes in the abdomen or pelvis. No inguinal lymphadenopathy. BLADDER: Normal. PELVIC VISCERA: No uterine or adnexal mass. No pelvic fluid collection. MUSCULOSKELETAL: No acute or suspicious osseous abnormalities. CT/CT abdomen pelvis wo IV con IMPRESSION: * No evidence of pneumonia. * Trace right pleural effusion and small left pleural effusion are similar in appearance compared to 04/07/2024. * A postoperative collection of fluid and gas along the surface of the proximal stomach has increased compared to 04/07/2024 and this could represent a developing abscess if within the proper clinical context. There is no extravasated enteric contrast in this region. * Large body habitus and mild hepatosplenomegaly.
--- NOTE | ~2024-04-07 | CT_ITS ---
EXAMINATION: CT CHEST WITH CONTRAST CLINICAL INFORMATION: Follow-up pleural effusion COMPARISON: 04/10/2024 TECHNIQUE: Multidetector volumetric CT imaging of the chest was obtained after the administration of 85 mL of Omnipaque 350 intravenous contrast without immediate adverse reactions. Axial MIP volume rendering provided. Sagittal and coronal reformatted images were obtained. This CT examination was performed using dose optimization techniques as appropriate, variously including the following: *Automated exposure control *Adjustment of mA and/or kV according to patient size (this includes techniques or standardized protocols for targeted exams where dose is matched to indication/reason for exam; i.e. extremities or head) *Use of iterative reconstruction technique DLP: 414 mGy-cm FINDINGS: PARADI OPERATOR: Unremarkable LUNGS: The lungs are without consolidation but there is small bilateral pleural effusions unchanged significantly since previous study there is slightly more prominent pleural effusion on the left in comparison to the right. MEDIASTINUM: Thyroid gland is unremarkable. There is no mediastinal or hilar lymphadenopathy seen. There is no pericardial effusion. AXILLA: No lymphadenopathy. UPPER ABDOMEN: There is low-attenuation of liver due to steatosis gallbladder is surgically absent. Spleen is enlarged measured 13.5 cm. There are postsurgical changes in the stomach. OSSEOUS STRUCTURES: Unremarkable. CT/CT chest w IV con IMPRESSION: Persistent small bilateral pleural effusion and splenomegaly and hepatic steatosis. Fleischner guidelines were followed.
--- NOTE | ~2024-04-07 | CT_ITS ---
EXAMINATION: CT ABDOMEN WITH CONTRAST CLINICAL INFORMATION: Follow-up abdominal collection COMPARISON: CT abdomen pelvis 04/10/2024. TECHNIQUE: Contiguous axial thin section helical images of the abdomen were performed following the administration of oral contrast and 85 mL of Omnipaque 350 intravenous contrast. The data set was reformatted in the coronal and sagittal planes and reviewed on an independent workstation. This CT examination was performed using dose optimization techniques as appropriate, variously including the following: *Automated exposure control *Adjustment of mA and/or kV according to patient size (this includes techniques or standardized protocols for targeted exams where dose is matched to indication/reason for exam; i.e. extremities or head) *Use of iterative reconstruction technique DLP: 1114 mGy-cm FINDINGS: LUNG BASES: Small left dependent simple pleural effusion, similar to slightly decreased from 04/10/2023. LIVER AND BILIARY TREE: Borderline hepatomegaly with liver spanning 20.1 cm in craniocaudal dimension. Liver otherwise unremarkable. GALLBLADDER: Status post cholecystectomy. PANCREAS: Unremarkable. SPLEEN: Small, subcapsular focus of hypoattenuation in the medial aspect of the superiormost spleen (series 16, image 70). ADRENAL GLANDS: Redemonstrated rounded, 2.0 x 1.7 cm right adrenal nodule previously low density, in keeping with lipid rich adrenal adenoma for which no follow-up imaging is recommended. Left adrenal gland unremarkable. KIDNEYS AND URETERS: Unremarkable. GASTROINTESTINAL TRACT: Redemonstrated postoperative appearance from revised Kathy-en-Y gastric bypass with enteric contrast in the gastric pouch and extending into the proximal gastrojejunal limb. Redemonstrated thin collection of gas and fluid extending anteroposteriorly and interposed between the gastric pouch staple line and clint for the excluded stomach, spanning approximately 8.9 x 2.8 x 3.4 cm (series 14, image 104; series 16) image 51) grossly similar in overall volume though possibly redistributed from 04/10/2024 New high density material within the dependent fluid abutting the lateral aspect of the superior most aspect of the gastric pouch staple line (series 13, image 13; series 13, image 53). VASCULAR: Unremarkable LYMPH NODES: No lymphadenopathy. PERITONEUM: No free peritoneal gas or ascites identified. ABDOMINAL WALL: Right upper abdominal wall surgical incisional scar without periincisional fluid collection. OSSEOUS STRUCTURES: Unremarkable. CT/CT abdomen w IV con IMPRESSION: 1. Redemonstrated postoperative appearance from revised Kathy-en-Y gastric bypass with similar volume of gas and fluid interposed between the gastric pouch staple line and clint for the excluded stomach. New high density material within the dependent fluid, suspicious for a contained enteric contrast leak, though given administration of intravenous contrast, an element of bleeding into a postoperative collection could appear similar, though less likely. 2. Small, subcapsular focus of hypoattenuation in the medial aspect of the superiormost spleen, suspicious for small splenic infarct. 3. Small left dependent simple pleural effusion, similar to slightly decreased from 04/10/2023.
--- NOTE | ~2024-04-07 | FL_ITS ---
EXAMINATION: XR FLUOROSCOPY UPPER GI WITH GASTROVIEW CLINICAL INFORMATION: 38-year-old female, status post revision of gastric bypass. Rule out leak or stricture. COMPARISON: Upper GI 09/21/2023. Abdomen pelvis CT and chest CT PA 04/07/2024. TECHNIQUE: Fluoroscopic single contrast limited upper GI examination was performed utilizing standard techniques with water-soluble Gastroview contrast. Several spot images were obtained. Several fluoroscopic image hold cine sequences were also obtained. FINDINGS: Patient drank Gastroview without complication. The gastric pouch and gastrojejunostomy demonstrated as expected postoperative appearance without evidence of stricture or leak. Contrast freely flowed into the gastrojejunostomy and afferent loop without delay, with prompt visualization of the distal anastomosis. No reflux into the duodenum were excluded stomach. No stricture or leak from the distal anastomosis. Mild fold thickening of the afferent loop was present, most likely postoperative in nature. No additional abnormal mucosal pattern in the imaged small bowel. No evidence of hiatus hernia and normal-appearing distal esophagus. FLUOROSCOPY TIME: 2 minutes 16 seconds. Number of Spot Images: 7 Number of cines obtained: 4 DOSE AREA PRODUCT: 3510 uGy-m2 (microgray-meter squared) FL/FL upper GI w gastrografin IMPRESSION: 1. Expected postoperative appearance of gastric bypass revision. No leak, or stricture identified. 2. Mild fold thickening of the afferent loop, most likely postoperative in nature. Findings were communicated to Dr. Dunlap via secure text at 1:45 PM, 04/09/2024
[2024-04-07 15:19] VITALS: BP 100/79; PULSE 124; RESP 22; TEMP 39.3; O2SAT 97; BMI 46.6
--- NOTE | 2024-04-07 15:29 | PC.NURSE ---
This alerted charge nurse of concerns for patient to get brought back. Charge nurse aware
[2024-04-07 15:45] LABS: Basophils Percent Auto 0.2 % (0-2); Eosinophils Absolute Auto 0.2 X10*3/uL (0.0-0.4); Eosinophils Percent Auto 0.9 % (0-4); Hematocrit 40.1 % (37.0-47.0); Hemoglobin 13.5 g/dl (12.0-16.0); Imm Gran Abs Auto 0.16 X10*3/uL (0.00-0.03); Imm Gran Pct Auto 0.8 % (0.0-0.4); Lymphocytes Absolute Auto 0.9 X10*3/uL (1.2-4.9); Lymphocytes Percent Auto 4.1 % (20-40); MANUAL DIFF FLAG SCAN; Mean Corpuscular HGB Conc 33.7 g/dl (31.0-35.0); Mean Corpuscular Hemoglobin 28.4 pg (27.0-33.0); Mean Corpuscular Volume 84.2 fL (80.0-98.0); Mean Platelet Volume 10.5 fL (9.4-12.3); Monocytes Absolute Auto 1.5 X10*3/uL (0.1-1.2); Monocytes Percent Auto 7.4 % (2-11); Neutrophils Percent Auto 86.6 % (45-73); Platelet Count 323 X10*3/uL (160-400); Red Blood Count 4.76 X10*6/uL (4.20-5.50); Red Cell Distribution Width 13.7 % (11.0-16.0); SCAN SMEAR FLAG 1; White Blood Count 20.8 X10*3/uL (4.8-10.8)
[2024-04-07 16:00] VITALS: BP 89/47; PULSE 110; RESP 18; O2SAT 94
[2024-04-07 16:03] LABS: Alanine Aminotransferase 43 U/L (0-31); Albumin Level 3.8 g/dL (3.5-5.0); Alkaline Phosphatase 115 U/L (39-117); Anion Gap 14 (12-20); Aspartate Amino Transferase 48 U/L (5-31); Bilirubin Total 1.4 mg/dL (0.0-1.0); Blood Urea Nitrogen 8 mg/dL (9-16); Calcium 9.3 mg/dL (8.4-10.2); Carbon Dioxide 20 mmol/L (22-29); Chloride 105 mmol/L (96-108); Creatinine Clr Calc Pharmacy 117.8; Estimated Glomerular Filt Rate > 60; Glucose Random 115 mg/dL (60-115); Sodium 135 mmol/L (135-145)
[2024-04-07 16:07] LABS: Troponin-I High Sensitivity 26.3 ng/L (<3.5-17.0)
--- NOTE | 2024-04-07 16:08 | ED_ITS ---
HPI - General Adult General Chief complaint: General Medical Stated complaint: gastro surgery last week, no energy, sweating Time Seen by Provider: 04/07/24 15:54 Source: patient Mode of arrival: ambulatory Limitations: no limitations History of Present Illness ED Provider: Justus Maki PA-C HPI narrative: 38-year-old female with past medical history of GERD, hypoglycemia, esophagitis, and recent gastric bypass revision presents to the ED for epigastric abdominal pain, mild shortness of breath due to epigastrc pain, weakness, lethargic, and back pain since last night. Patient pain in area of incision. Patient denies any dysuria hematuria. Patient denies chest pain. Related Data Home Medications ?Medication ?Instructions ?Recorded ?Confirmed acetaminophen 500 mg tablet 500 mg PO Q6H PRN Pain 04/07/24 04/07/24 ondansetron 4 mg disintegrating 4 mg PO Q12H PRN nausea and 04/07/24 04/07/24 tablet vomiting Previous Rx's ?Medication ?Instructions ?Recorded pantoprazole 40 mg tablet,delayed 40 mg PO DAILY #90 tabs 03/19/24 release sucralfate 100 mg/mL oral 10 ml PO BID #600 mL 03/19/24 suspension Allergies Allergy/AdvReac Type Severity Reaction Status Date / Time No Known Allergies Allergy Verified 04/07/24 15:24 Review of Systems 2 Review of Systems: Epigastric abdominal shortness of breath, body aches, back pain, lethargic, chills, fever Yes all other systems are reviewed and are negative PMFSH Past Medical History Medical History Hiatal hernia GERD (gastroesophageal reflux disease) Morbid obesity Surgical History History of esophagogastroduodenoscopy (EGD) (10/17/23) H/O partial nephrectomy H/O tubal ligation History of cholecystectomy Gastric bypass status for obesity Family History Family History Mother Kidney failure Diabetes Hypertension Congestive heart failure Father Brain aneurysm AIDS Son Diabetes Son Asthma Daughter No problems noted. Social History Social History Household Members: Family Housing: House Are you a primary early breastfeeding care specialist to a significant other at home: Yes (mother- to assist post-op) Do you presently have visiting nurse or other home services: No Alcohol intake: never Patient Tobacco Use Status: Never used Tobacco Smoked in Last 30 Days: No Use of substances other than those prescribed or required for medical reasons: No Advance Directives: No Advance Directives Information Provided: No Do you have a plan to hurt others: No Plan Nutrition Risks: No Nutritional Risk Patient : No Current occupational status: employed Current occupation: [employer] Medical Physical Exam ED Vital Signs: Vital Signs - 24 hr 04/07/24 15:19 04/07/24 16:00 04/07/24 17:36 Temperature 102.7 F H 98.5 F Pulse Rate 124 H 110 H 96 Respiratory Rate 22 H 18 18 Blood Pressure 100/79 89/47 L 109/64 Pulse Oximetry 97 94 96 Oxygen Delivery Method Room Air Room Air Room Air 04/07/24 19:08 Temperature 98.5 F Pulse Rate 95 Respiratory Rate 12 Blood Pressure 117/65 Pulse Oximetry 98 Oxygen Delivery Method Room Air BMI result Body Mass Index 46.6 Const General: cooperative, healthy appearing, comfortable, no acute distress, well developed, alert, awake and Physically active [facility] Head: Yes normal to inspection, Yes No palpable skull fracture present, Yes normocephalic, Yes atraumatic and No abrasion Eyes General: appearance normal, both eyes and all related structures Neck Neck: Yes normal visual inspection, Yes full ROM, Yes no lymphadenopathy, Yes no meningeal signs, Yes trachea midline, Yes supple, No anterior neck swelling and No tender Chest Chest palpation & inspection: normal inspection of the chest and normal palpation of entire chest wall Resp Effort & Inspection: normal respiratory effort and able to speak in complete sentences Auscultation: clear to auscultation bilaterally Cardio Jugular venous distension: no JVD Heart sounds: S1 normal heart sound present and S2 normal heart sound present GI Other: Surgical incisions negative for any erythema, redness, swelling, or pus discharge. Inspection: Yes normal to inspection Palpation (GI): Soft to palpation, not firm, nontender, no guarding and not rigid General: No CVA tenderness and Yes no CVA tenderness Back/Spine/Pelvis Back: no CVA tenderness, No CVA tenderness and No back tenderness Skin General skin exam: no rashes or lesions noted, elasticity normal and turgor normal Neuro General: gait normal, tone normal, moves all extremities, Normal light touch and pain sensation, no meningeal signs, no focal motor deficits, CN's II-XI intact bilaterally and normal sensation to monofilament Extrem Other: Bilateral lower extremity negative for swelling, pitting edema, or calf tenderness. General: Yes normal to inspection, Yes full ROM and Yes capillary refill normal Psych Appearance: grossly normal, well kempt and not disheveled Medications Administered Generic Name Dose Route Start Last Admin Trade Name Freq PRN Reason Stop Dose Admin Lactated Ringer's 1,000 mls @ 150 mls/hr 04/07/24 21:00 04/07/24 21:16 Lr IVCONT 150 mls/hr .Q6H40M COLETTE Administration Metronidazole 500 mg in 100 mls @ 100 mls/hr 04/07/24 22:00 04/07/24 22:16 Flagyl IV Infused Q8H COLETTE Infusion Acetaminophen 1,000 mg in 100 mls @ 400 mls/hr 04/07/24 22:00 04/07/24 22:37 Ofirmev IV Infused Q6H COLETTE Infusion Pantoprazole Sodium 40 mg 04/07/24 21:00 04/07/24 21:16 Pantoprazole Sodium 40 Mg/10 Ml Vial IVPUSH 40 mg BID@0630,1630 COLETTE Administration Sodium Chloride 3 ml 04/08/24 00:00 04/08/24 00:29 0.9 % Sodium Chloride Flush 3 Ml Syringe IVFLUSH Not Given QSHIFT COLETTE Discontinued Medications Generic Name Dose Route Start Last Admin Trade Name Freq PRN Reason Stop Dose Admin Acetaminophen 975 mg 04/07/24 16:05 04/07/24 16:10 Acetaminophen 325 Mg Tablet PO 04/07/24 16:06 975 mg ONCE ONE Administration Diatrizoate Meglum/Diatrizoate Sod 30 ml 04/07/24 18:30 04/07/24 18:30 Diatrizoate Meglumine, Sodium 30 Ml Solution PO 04/07/24 18:31 30 ml ONCE ONE Administration Sodium Chloride 3,471 mls @ 3,471 mls/hr 04/07/24 15:56 04/07/24 21:10 Ns 30 ml/kg infuse over 1 hr (3471 ml) 04/07/24 16:55 Infused IV Infusion .Q1H STA Ceftriaxone Sodium 1 gm/ 50 mls @ 100 mls/hr 04/07/24 16:11 04/07/24 17:17 Sodium Chloride IV 04/07/24 16:40 Infused ONCE ONE Infusion Iohexol 100 ml 04/07/24 17:36 04/07/24 17:36 Iohexol 350 Mg/Ml 100 Ml Infus..Btl IV 04/07/24 17:37 85 ml ONCE ONE Administration Medical Decision Making Medical Decision Making MDM Narrative: 38-year-old female status post gastric bypass revision surgery now with fever, body aches, chills, back pain, shortness of breath, and mild epigastric tenderness on palpation. Negative for signs of abdominal tenderness or any signs of infection around surgical wound. Sepsis protocol called. Sepsis fluids ordered. Ceftriaxone ordered. Initial labs shows positive troponin EKG sinus tach. chest CTA ordered. Abdominal CT scan ordered. ESR CRP added. 4:30pm: Discussed with nurse Kellen took only give half of the sepsis fluid in case patient's ESR CRP elevated indicate myocardiis. Ran out patient presently given only a 1L of fluid and then it will be stopped. 8:33pm: Patient received 2 L of fluid. Head CT came back negative for PE or pneumonia. Negative for signs of fluid in the heart. Second troponin negative. Patient presently has no shortness of breath very unlikely patient has myocarditis. Patient has no chest pain. patient is sleeping comfortably in bed. BNP negative for CHF or myocariditis. Influenza RSV strep negative. Urine is negative. Abdominal CT scan negative for any abscess. Dr. Dunlap bariatric surgeon who performed the procedure came and evaluated patient and will admit patient to his service. Patient admitted for postop fever presently no source of infection Differential Diagnosis Differential Diagnoses: The differential diagnosis associated with the presentation includes (Myocarditis, pneumonia, PE, UTI, abdominal abscess) Admission/Observation Consideration of admission/observation: Escalation of care including admission/observation considered Consult Healthcare Provider Management of the patient was discussed with: Contact Agent (Dr. Dunlap) Lab Data [facility] Lab Attestation statement: I reviewed the patient's lab results. 04/07/24 15:37 04/07/24 15:37 Labs: Lab Results 04/07/24 04/07/24 04/07/24 Range/Units 15:37 15:59 18:25 WBC 20.8 H (4.8-10.8) X10*3/uL RBC 4.76 (4.20-5.50) X10*6/uL Hgb 13.5 (12.0-16.0) g/dl Hct 40.1 (37.0-47.0) % MCV 84.2 (80.0-98.0) fL MCH 28.4 (27.0-33.0) pg MCHC 33.7 (31.0-35.0) g/dl RDW 13.7 (11.0-16.0) % Plt Count 323 (160-400) X10*3/uL MPV 10.5 (9.4-12.3) fL Immature Gran % (Auto) 0.8 H (0.0-0.4) % Neut % (Auto) 86.6 H (45-73) % Lymph % (Auto) 4.1 L (20-40) % Patrick % (Auto) 7.4 (2-11) % Eos % (Auto) 0.9 (0-4) % Baso % (Auto) 0.2 (0-2) % Lymph # (Auto) 0.9 L (1.2-4.9) X10*3/uL Patrick # (Auto) 1.5 H (0.1-1.2) X10*3/uL Eos # (Auto) 0.2 (0.0-0.4) X10*3/uL Baso # (Auto) 0.0 (0.0-0.2) X10*3/uL Abs Immat Gran (auto) 0.16 H (0.00-0.03) X10*3/uL Absolute Neuts (auto) 18.0 H (2.0-8.3) x10*3/uL Absolute Nucleated RBC 0.000 (0.0-0.012) X10*3/uL Nucleated RBC % (auto) 0.0 (0.0-0.2) /100WBC Smear Tech's Comments VERIFIED ESR 68 H (0-20) MM/HR Sodium 135 (135-145) mmol/L Potassium 4.0 (3.3-5.1) mmol/L Chloride 105 (96-108) mmol/L Carbon Dioxide 20 L (22-29) mmol/L Anion Gap 14 (12-20) BUN 8 L (9-16) mg/dL Creatinine 0.78 (0.5-1.4) mg/dL Estim Creat Clear Calc 117.8 Estimated GFR > 60 Random Glucose 115 (60-115) mg/dL Lactic Acid 0.8 (0.5-2.0) mmol/L Calcium 9.3 (8.4-10.2) mg/dL Magnesium 2.0 (1.6-2.6) mg/dL Total Bilirubin 1.4 H (0.0-1.0) mg/dL AST 48 H (5-31) U/L ALT 43 H (0-31) U/L Alkaline Phosphatase 115 (39-117) U/L Troponin I High Sens 26.3 H (<3.5-17.0) ng/L C-Reactive Protein 25.63 H (< or = 0.50) mg/dL B-Natriuretic Peptide < 10 (<100) pg/mL Total Protein 8.0 (6.5-8.0) g/dL Albumin 3.8 (3.5-5.0) g/dL Beta HCG, Quant < 2 mIU/mL Urine Color Urine Appearance Urine pH (5.0-9.0) Ur Specific [place] (1.005-1.025) Urine Protein (Neg-Trace) mg/dL Urine Glucose (UA) (Negative) mg/dL Urine Ketones (Negative) mg/dL Urine Blood (Negative) Urine Nitrite (Negative) Ur Leukocyte Esterase (Negative) Urine RBC (0-2) /HPF Urine WBC (0-5) /HPF Ur Squamous Epith Cells (0-2) /HPF Urine Bacteria (None Seen) Hyaline Casts (0-2) /LPF Influenza Type A (PCR) NEGATIVE (Negative) Influenza Type B (PCR) NEGATIVE (Negative) RSV RNA Qual (PCR) NEGATIVE (Negative) SARS-CoV-2 RNA (RT-PCR) NEGATIVE (Negative) 04/07/24 04/07/24 Range/Units 19:12 19:17 WBC (4.8-10.8) X10*3/uL RBC (4.20-5.50) X10*6/uL Hgb (12.0-16.0) g/dl Hct (37.0-47.0) % MCV (80.0-98.0) fL MCH (27.0-33.0) pg MCHC (31.0-35.0) g/dl RDW (11.0-16.0) % Plt Count (160-400) X10*3/uL MPV (9.4-12.3) fL Immature Gran % (Auto) (0.0-0.4) % Neut % (Auto) (45-73) % Lymph % (Auto) (20-40) % Patrick % (Auto) (2-11) % Eos % (Auto) (0-4) % Baso % (Auto) (0-2) % Lymph # (Auto) (1.2-4.9) X10*3/uL Patrick # (Auto) (0.1-1.2) X10*3/uL Eos # (Auto) (0.0-0.4) X10*3/uL Baso # (Auto) (0.0-0.2) X10*3/uL Abs Immat Gran (auto) (0.00-0.03) X10*3/uL Absolute Neuts (auto) (2.0-8.3) x10*3/uL Absolute Nucleated RBC (0.0-0.012) X10*3/uL Nucleated RBC % (auto) (0.0-0.2) /100WBC Smear Tech's Comments ESR (0-20) MM/HR Sodium (135-145) mmol/L Potassium (3.3-5.1) mmol/L Chloride (96-108) mmol/L Carbon Dioxide (22-29) mmol/L Anion Gap (12-20) BUN (9-16) mg/dL Creatinine (0.5-1.4) mg/dL Estim Creat Clear Calc Estimated GFR Random Glucose (60-115) mg/dL Lactic Acid (0.5-2.0) mmol/L Calcium (8.4-10.2) mg/dL Magnesium (1.6-2.6) mg/dL Total Bilirubin (0.0-1.0) mg/dL AST (5-31) U/L ALT (0-31) U/L Alkaline Phosphatase (39-117) U/L Troponin I High Sens < 2.7 D (<3.5-17.0) ng/L C-Reactive Protein (< or = 0.50) mg/dL B-Natriuretic Peptide (<100) pg/mL Total Protein (6.5-8.0) g/dL Albumin (3.5-5.0) g/dL Beta HCG, Quant mIU/mL Urine Color Yellow Urine Appearance Clear Urine pH 6.0 (5.0-9.0) Ur Specific [place] >= 1.030 H (1.005-1.025) Urine Protein Negative (Neg-Trace) mg/dL Urine Glucose (UA) Negative (Negative) mg/dL Urine Ketones Trace (Negative) mg/dL Urine Blood Small (1+) H (Negative) Urine Nitrite Negative (Negative) Ur Leukocyte Esterase Trace H (Negative) Urine RBC 0-2 (0-2) /HPF Urine WBC 0-5 (0-5) /HPF Ur Squamous Epith Cells 0-2 (0-2) /HPF Urine Bacteria Trace (None Seen) Hyaline Casts 0-2 (0-2) /LPF Influenza Type A (PCR) (Negative) Influenza Type B (PCR) (Negative) RSV RNA Qual (PCR) (Negative) SARS-CoV-2 RNA (RT-PCR) (Negative) Independent Interpretation I performed an independent interpretation of an: EKG (EKG Sinus tachycharida) and CT Scan Radiology Impression Discussion of test interpretation with radiology: I have reviewed the radiologist's reading. Radiologist Impression: [place] [id number] CT Scan Report Signed Patient: Smiley Kelley MR#: [id number] : 1985 Acct:[id number] Age/Sex: 38 / F ADM Date: 04/07/24 Loc: .ED Attending Dr: Ordering Physician: Justus Maki Date of Service: 04/07/24 Procedure(s): CT abdomen pelvis w IV con Accession Number(s): [id number] cc: Justus Maki; Robel Rodriguez MD~ EXAMINATION: CT angio chest PE protocol, CT abdomen pelvis w IV con CLINICAL INFORMATION: Status post surgery. Positive troponin. Question pulmonary embolism, myocarditis COMPARISON: Abdominal ultrasound 08/29/2023, CT abdomen pelvis 08/29/2018 TECHNIQUE: Prior to contrast administration, noncontrast localization images were obtained. Subsequently, multidetector volumetric imaging was performed from the thoracic inlet to below the diaphragms following the administration of 85 mL Omnipaque 350 intravenous contrast. This was followed by multidetector acquisition of the abdomen and pelvis. No contrast reaction reported Sagittal, coronal, and MIP oblique sagittal reformatted images were obtained on the CT workstation, uploaded to PACS, and reviewed. Total exam dose-length product 340 mGy-cm FINDINGS: QUALITY OF STUDY/CONTRAST BOLUS: Suboptimal. CHEST: CHEST WALL: Unremarkable. AXILLA: No lymphadenopathy. PULMONARY ARTERIES: No pulmonary embolism. MEDIASTINUM: Heart is normal in size. No mediastinal lymphadenopathy. No hilar lymphadenopathy. CORONARY ARTERY CALCIFICATION: No significant coronary artery calcification appreciated on this exam. PLEURA: There is a small/trace left effusion LUNGS: Motion artifact degrades image quality. Atelectasis without consolidation. No dominant suspicious pulmonary nodules. ABDOMEN AND PELVIS: ABDOMINAL AND PELVIC WALL: There is inflammatory changes with small pockets of gas in the mid abdomen just right of midline correlate with history of recent surgery or injections. LIVER AND BILIARY TREE: Unremarkable. GALLBLADDER: Status post cholecystectomy. PANCREAS: Unremarkable. SPLEEN: Unremarkable. ADRENAL GLANDS: There is a 2 cm right adrenal nodule which appears to be mildly increased from the 08/29/2018 exam when it measured 1.4 cm KIDNEYS AND URETERS: Unremarkable. GASTROINTESTINAL TRACT: Small hiatal hernia. The patient appears to be status post gastric bypass surgery. There is a small pocket of gas in the left upper quadrant adjacent to suture material that may be extraluminal (15, 17/96). There are surrounding inflammatory changes, no extraluminal contrast is visualized. There is oral contrast within loops of small bowel. No high-grade obstruction. VASCULAR: Unremarkable. LYMPH NODES: No lymphadenopathy. FREE FLUID: There is trace fluid in the pelvis. BLADDER: Unremarkable. PELVIC VISCERA: Unremarkable. OSSEOUS STRUCTURES: Minimal scoliotic curvature in the spine. CT/CT abdomen pelvis w IV con IMPRESSION: 1. No evidence of pulmonary embolism. 2. The patient is status post gastric bypass surgery. There is a small pocket of gas in the left upper quadrant adjacent to suture material that may be extraluminal. There are surrounding inflammatory changes, no extraluminal contrast is visualized. There is oral contrast within loops of small bowel. 3. There is a 2 cm right adrenal nodule which appears to be mildly increased in size from the 08/29/2018 exam when it measured 1.4 cm. 4. There is a small/trace left pleural effusion. 5. Inflammatory changes with small pockets of gas in the mid abdomen just right of midline, correlate with history of recent surgery or injections. VTE: negative. Dictated By: Terry Sims MD Signed By: <Electronically signed by Terry Sims MD in OV> 04/07/24 1843 DD/ 1733 TD/TT: Ict Account Manager: FOREST Independent Historian Clinical information obtained from an independent historian. History obtained from or confirmed by: Other (Patient) External Record Review External record reviewed: Other (Prior visits) Critical Care Time Critical Care Time Critical Care Time: Yes Total Critical Care Time: 60 Attestation: Patient is septic. Patient given Tylenol fluids. Chest CT abdominal the ordered antibiotics given. Spoke with bariatric surgeon who will admit patient. Discharge Plan Discharge Clinical Impression: Fever postop Patient Disposition: Admitted As Inpatient
[2024-04-07] MEDS: Acetaminophen 325 MG TABLET 975 MG PO (16:10)
[2024-04-07] MEDS: cefTRIAXone sodium 1 GM in 0.9 % Sodium Chloride 50 ML IV (16:15)
[2024-04-07 16:18] LABS: Lactic Acid 0.8 mmol/L (0.5-2.0)
[2024-04-07 16:24] LABS: Influenza A PCR NEGATIVE (Negative); Influenza B PCR NEGATIVE (Negative); Resp Syncy Virus RNA Qual PCR NEGATIVE (Negative); SARS COV2 PCR INHOUSE NEGATIVE (Negative)
[2024-04-07 17:04] LABS: C Reactive Protein 25.63 mg/dL (< or = 0.50)
[2024-04-07 17:08] LABS: HCG Quantitative < 2 mIU/mL
--- NOTE | 2024-04-07 17:15 | PC.NURSE ---
Patient got 1L IVF, Michael provider wants rest of bolus held until labs return.
[2024-04-07 17:17] LABS: Erythrocyte Sedimentation Rate 68 MM/HR (0-20)
[2024-04-07 17:36] VITALS: BP 109/64; PULSE 96; RESP 18; TEMP 36.9; O2SAT 96
[2024-04-07] MEDS: iohexoL 350 MG/ML 100 ML INFUS..BTL IV (17:36)
[2024-04-07 18:01] LABS: SLIDE REVIEW VERIFIED
[2024-04-07] MEDS: Diatrizoate Meglumine, Sodium 30 ML SOLUTION PO (18:30)
[2024-04-07 18:55] LABS: B Type Natriuretic Peptide < 10 pg/mL (<100)
--- NOTE | 2024-04-07 18:57 | PC.NURSE ---
Still waiting for BNP results, called lab, lab stated they needed a redraw, redraw sent. Patient c/o weakness, Michael okayed to give another 500ccs of NS from ordered bolus.
[2024-04-07 19:08] VITALS: BP 117/65; PULSE 95; RESP 12; TEMP 36.9; O2SAT 98
--- NOTE | 2024-04-07 19:19 | PC.NURSE ---
Provider decision to give 2L of ordered bolus. oncoming RN Darrel aware.
[2024-04-07 19:34] LABS: Appearance Urine Clear; Color Urine Yellow; Glucose Urine UA Negative (Negative); Leukocyte Esterase Urine Trace (Negative); Nitrite Urine Negative (Negative); Specific Gravity - Urine >= 1.030 (1.005-1.025); UMIC TRIGGER UACC YES; Urine Blood Small (1+) (Negative); Urine Ketones Trace mg/dL (Negative); Urine Protein Negative (Neg-Trace)
[2024-04-07 19:49] LABS: Troponin-I High Sensitivity < 2.7 ng/L (<3.5-17.0)
[2024-04-07 19:53] LABS: Bacteria Urine Trace (None Seen); Hyaline Casts Urine 0-2 /LPF (0-2); RBC Urine 0-2 /HPF (0-2); Squamous Epithelial Cell Urine 0-2 /HPF (0-2); WBC Urine 0-5 /HPF (0-5)
--- NOTE | 2024-04-07 20:36 | PM.HPGS ---
History of Present Illness History of Present Illness Date of Service: 04/07/24 Chief complaint: gastro surgery last week, no energy, sweating Narrative: Smiley Kelley is a 38 year old female who had sleeve gastrectomy of the gastric pouch 4 days ago. Yesterday afternoon felt very weak with sweating. Did have some mild lower back pain at the midline. Denies any abdominal pain, left should pain, SOB. Did have some nausea. [facility] Past Medical History Medical History Hiatal hernia GERD (gastroesophageal reflux disease) Morbid obesity Family History Family History Mother Kidney failure Diabetes Hypertension Congestive heart failure Father Brain aneurysm AIDS Son Diabetes Son Asthma Daughter No problems noted. Surgical History Surgical History History of esophagogastroduodenoscopy (EGD) (10/17/23) H/O partial nephrectomy H/O tubal ligation History of cholecystectomy Gastric bypass status for obesity Social History Social History Household Members: Family Housing: House Are you a primary career manager to a significant other at home: Yes (mother- to assist post-op) Do you presently have visiting nurse or other home services: No Alcohol intake: never Patient Tobacco Use Status: Never used Tobacco Smoked in Last 30 Days: No Use of substances other than those prescribed or required for medical reasons: No Advance Directives: No Advance Directives Information Provided: No Do you have a plan to hurt others: No Plan Patient : No Current occupational status: employed Current occupation: [employer] Allergies Allergy/AdvReac Type Severity Reaction Status Date / Time No Known Allergies Allergy Verified 04/07/24 15:24 Physical Exam Vital Signs: Vital Signs: Last Vital Signs Temp 98.5 F 04/07/24 19:08 Pulse 95 04/07/24 19:08 Resp 12 04/07/24 19:08 BP 117/65 04/07/24 19:08 Pulse Ox 98 04/07/24 19:08 O2 Del Method Room Air 04/07/24 19:08 BMI result Body Mass Index 46.6 Const: General: cooperative, alert, awake and tired appearing GI: Inspection: Yes normal to inspection and Yes incision (clean, dry and intact) Palpation (GI): Soft to palpation Extrem: Right lower extremity: normal to inspection (no calf tenderness) Left lower extremity: normal to inspection (no calf tenderness) Results Results Labs: Short CBC 04/07/24 Range/Units 15:37 WBC 20.8 H (4.8-10.8) X10*3/uL Hgb 13.5 (12.0-16.0) g/dl Hct 40.1 (37.0-47.0) % Plt Count 323 (160-400) X10*3/uL BMP 04/07/24 15:37 Sodium 135 Potassium 4.0 Chloride 105 Carbon Dioxide 20 L BUN 8 L Creatinine 0.78 Calcium 9.3 Liver Function 04/07/24 Range/Units 15:37 Total Bilirubin 1.4 H (0.0-1.0) mg/dL AST 48 H (5-31) U/L ALT 43 H (0-31) U/L Alkaline Phosphatase 115 (39-117) U/L Albumin 3.8 (3.5-5.0) g/dL Urine 04/07/24 Range/Units 19:12 Urine Color Yellow Urine Appearance Clear Urine pH 6.0 (5.0-9.0) Ur Specific [place] >= 1.030 H (1.005-1.025) Urine Protein Negative (Neg-Trace) mg/dL Urine Glucose (UA) Negative (Negative) mg/dL Abdomen CT scan report/results: report reviewed and image reviewed CT scan - chest: report reviewed and image reviewed CT scan - pelvis: report reviewed and image reviewed Assessment and Plan (1) Fatigue: Qualifiers: Fatigue type: other Qualified Code(s): R53.83 - Other fatigue Status: Acute 1. Unclear what the cause of this is. The possibility of intra-abdominal sepsis cannot be ruled out due to recent extensive revision surgery. There is a small pocket of extraluminal air near the staple line of the pouch. There is no fluid there or extravasation of oral contrast. The spleen is viable as well as the left gastric artery and splenic artery appear patent. Small amount of left pleural effusion. No obstruction and no fluid in the pelvis. Lactate level was normal. UA with with trace of leucocyte esterase, blood and bacteria. 2. Admit for observation. Fluid resuscitation and IV antibiotics. 3. Findings were discussed with the patient and her and they agree with the plan (2) Leucocytosis: Qualifiers: Leukocytosis type: bandemia Qualified Code(s): D72.825 - Bandemia Status: Acute Quality Stroke Does the patient have a stroke diagnosis?: No VTE Prior VTE?: No VTE Risk Level:: Surgical - moderate VTE Device Contraindication: N/A - Device Ordered VTE Drug Contraindication: Treatment Not Indicated Procedures Date of Service Date of Service: 04/07/24
--- NOTE | 2024-04-07 21:10 | PC.NURSE ---
NS bolus 2000mL only per CHARMAINE Rodriguez
--- NOTE | 2024-04-07 21:14 | PHA.MEDREC ---
Pharmacy Consult ? Medication Reconciliation Pharmacy has completed the medication reconciliation. Spoke to patient to confirm med list. Patient states she is no longer on vitamin D3 50mcg daily, and Docusate sod 100 mg daily. Patient says the changed Omeprazole 20 mg daily to Pantoprazole 40 mg daily.
[2024-04-07] MEDS: Pantoprazole Sodium 40 MG/10 ML VIAL IVPUSH (21:16)
[2024-04-07] MEDS: metroNIDAZOLE/NS 500 MG/100 ML PIGGYBACK 100 MG IV (21:16)
[2024-04-07] MEDS: Lactated Ringers 1,000 ML 150 ML IVCONT (21:16)
[2024-04-07 21:26] VITALS: BP 109/61; PULSE 82; RESP 16; TEMP 36.5; O2SAT 99
[2024-04-07] MEDS: Acetaminophen 1,000 MG/100 ML PIGGYBACK 400 MG IV (22:22)
[2024-04-08 03:24] VITALS: BP 105/52; PULSE 82; RESP 17; TEMP 37.1; O2SAT 97
[2024-04-08] MEDS: Lactated Ringers 1,000 ML 150 ML IVCONT ×4 (03:45→23:24)
[2024-04-08] MEDS: Acetaminophen 1,000 MG/100 ML PIGGYBACK 400 MG IV ×4 (03:46→21:05)
[2024-04-08 05:02] LABS: Basophils Percent Auto 0.1 % (0-2); Eosinophils Absolute Auto 0.5 X10*3/uL (0.0-0.4); Eosinophils Percent Auto 3.2 % (0-4); Hemoglobin 11.6 g/dl (12.0-16.0); Imm Gran Abs Auto 0.09 X10*3/uL (0.00-0.03); Imm Gran Pct Auto 0.6 % (0.0-0.4); Lymphocytes Absolute Auto 1.1 X10*3/uL (1.2-4.9); Lymphocytes Percent Auto 7.1 % (20-40); MANUAL DIFF FLAG NO; Mean Corpuscular HGB Conc 34.1 g/dl (31.0-35.0); Mean Corpuscular Hemoglobin 28.8 pg (27.0-33.0); Mean Corpuscular Volume 84.4 fL (80.0-98.0); Mean Platelet Volume 10.7 fL (9.4-12.3); Monocytes Absolute Auto 1.3 X10*3/uL (0.1-1.2); Monocytes Percent Auto 8.2 % (2-11); Neutrophils Absolute Auto 12.4 x10*3/uL (2.0-8.3); Neutrophils Percent Auto 80.8 % (45-73); Platelet Count 272 X10*3/uL (160-400); Red Blood Count 4.03 X10*6/uL (4.20-5.50); White Blood Count 15.3 X10*3/uL (4.8-10.8)
[2024-04-08 05:11] LABS: Lactic Acid 0.8 mmol/L (0.5-2.0)
[2024-04-08 05:19] LABS: Alanine Aminotransferase 44 U/L (0-31); Albumin Level 3.2 g/dL (3.5-5.0); Alkaline Phosphatase 108 U/L (39-117); Anion Gap 12 (12-20); Aspartate Amino Transferase 36 U/L (5-31); Bilirubin Total 0.8 mg/dL (0.0-1.0); Blood Urea Nitrogen 7 mg/dL (9-16); C Reactive Protein 25.73 mg/dL (< or = 0.50); Calcium 8.8 mg/dL (8.4-10.2); Carbon Dioxide 21 mmol/L (22-29); Chloride 108 mmol/L (96-108); Creatinine Clr Calc Pharmacy 135.2; Estimated Glomerular Filt Rate > 60; Glucose Random 96 mg/dL (60-115); Potassium 3.8 mmol/L (3.3-5.1); Sodium 137 mmol/L (135-145); Total Protein 6.8 g/dL (6.5-8.0)
[2024-04-08] MEDS: Pantoprazole Sodium 40 MG/10 ML VIAL IVPUSH ×2 (05:53→16:29)
[2024-04-08] MEDS: metroNIDAZOLE/NS 500 MG/100 ML PIGGYBACK 100 MG IV ×3 (05:53→21:24)
--- NOTE | 2024-04-08 07:40 | P.PNGS_ITS ---
Subjective Subjective Date of Service: 04/08/24 Interval history: Slept all night. Feels better than yesterday. Denies any abdominal pain, back pain. Has some sweats but no fever overnight. Physical Exam 2 Vital Signs: Vital Signs: Last Vital Signs Temp 98.7 F 04/08/24 03:24 Pulse 82 04/08/24 03:24 Resp 17 04/08/24 03:24 BP 105/52 L 04/08/24 03:24 Pulse Ox 97 04/08/24 03:24 O2 Del Method Room Air 04/08/24 03:24 BMI result Body Mass Index 46.6 GI: Inspection: Yes normal to inspection, Yes incision (clean, dry and intact) and Yes obesity Palpation (GI): Soft to palpation and Other GI palpation findings present (not tender) Extrem: Right lower extremity: normal to inspection (no calf tenderness) L eft lower extremity: normal to inspection (no calf tenderness) Objective Data Active Medications Hydromorphone HCl (Hydromorphone Hcl 0.5 Mg/0.5 Ml Syringe) 0.25 mg IVPUSH Q4H PRN; Protocol PRN Reason: Pain, Moderate(Pain Scale 4-6) Lactated Ringer's (Lr) 1,000 mls @ 150 mls/hr IVCONT .Q6H40M [facility] Last Admin: 04/08/24 03:45 Dose: 150 mls/hr Documented By: ELIAZAR Metronidazole (Flagyl) 500 mg in 100 mls @ 100 mls/hr IV Q8H [facility] Last Infusion: 04/08/24 07:39 Dose: Infused Documented By: LUCERO Acetaminophen (Ofirmev) 1,000 mg in 100 mls @ 400 mls/hr IV Q6H [facility] Last Infusion: 04/08/24 04:01 Dose: Infused Documented By: ELIAZAR Metoclopramide HCl (Metoclopramide Hcl 10 Mg/2 Ml Vial) 10 mg IVPUSH Q6H PRN PRN Reason: Nausea Pantoprazole Sodium (Pantoprazole Sodium 40 Mg/10 Ml Vial) 40 mg IVPUSH BID@0630,1630 [facility] Last Admin: 04/08/24 05:53 Dose: 40 mg Documented By: ELIAZAR Sodium Chloride (0.9 % Sodium Chloride Flush 3 Ml Syringe) 3 ml IVFLUSH QSHIFT [facility] Last Admin: 04/08/24 07:39 Dose: Not Given Documented By: LUCERO Non-Admin Reason: IV Running Labs 04/08/24 04:31 04/08/24 04:31 Labs: Laboratory Results - last 24 hr 04/07/24 04/07/24 04/07/24 15:37 15:59 18:25 MCV 84.2 MCH 28.4 MCHC 33.7 RDW 13.7 Plt Count 323 MPV 10.5 Immature Gran % (Auto) 0.8 H Neut % (Auto) 86.6 H Lymph % (Auto) 4.1 L Turner % (Auto) 7.4 Eos % (Auto) 0.9 Baso % (Auto) 0.2 Lymph # (Auto) 0.9 L Turner # (Auto) 1.5 H Eos # (Auto) 0.2 Baso # (Auto) 0.0 Abs Immat Gran (auto) 0.16 H Absolute Neuts (auto) 18.0 H Absolute Nucleated RBC 0.000 Nucleated RBC % (auto) 0.0 Smear Tech's Comments VERIFIED ESR 68 H Anion Gap 14 Estim Creat Clear Calc 117.8 Estimated GFR > 60 Random Glucose 115 Lactic Acid 0.8 Calcium 9.3 Magnesium 2.0 Total Bilirubin 1.4 H AST 48 H ALT 43 H Alkaline Phosphatase 115 Troponin I High Sens 26.3 H C-Reactive Protein 25.63 H B-Natriuretic Peptide < 10 Total Protein 8.0 Albumin 3.8 Beta HCG, Quant < 2 Urine Color Urine Appearance Urine pH Ur Specific Normanna Urine Protein Urine Glucose (UA) Urine Ketones Urine Blood Urine Nitrite Ur Leukocyte Esterase Urine RBC Urine WBC Ur Squamous Epith Cells Urine Bacteria Hyaline Casts Influenza Type A (PCR) NEGATIVE Influenza Type B (PCR) NEGATIVE RSV RNA Qual (PCR) NEGATIVE SARS-CoV-2 RNA (RT-PCR) NEGATIVE 04/07/24 04/07/24 04/07/24 19:12 19:17 22:07 MCV MCH MCHC RDW Plt Count MPV Immature Gran % (Auto) Neut % (Auto) Lymph % (Auto) Turner % (Auto) Eos % (Auto) Baso % (Auto) Lymph # (Auto) Turner # (Auto) Eos # (Auto) Baso # (Auto) Abs Immat Gran (auto) Absolute Neuts (auto) Absolute Nucleated RBC Nucleated RBC % (auto) Smear Tech's Comments ESR Anion Gap Estim Creat Clear Calc Estimated GFR Random Glucose Lactic Acid 1.0 Calcium Magnesium Total Bilirubin AST ALT Alkaline Phosphatase Troponin I High Sens < 2.7 D C-Reactive Protein B-Natriuretic Peptide Total Protein Albumin Beta HCG, Quant Urine Color Yellow Urine Appearance Clear Urine pH 6.0 Ur Specific Normanna >= 1.030 H Urine Protein Negative Urine Glucose (UA) Negative Urine Ketones Trace Urine Blood Small (1+) H Urine Nitrite Negative Ur Leukocyte Esterase Trace H Urine RBC 0-2 Urine WBC 0-5 Ur Squamous Epith Cells 0-2 Urine Bacteria Trace Hyaline Casts 0-2 Influenza Type A (PCR) Influenza Type B (PCR) RSV RNA Qual (PCR) SARS-CoV-2 RNA (RT-PCR) 04/08/24 04:31 MCV 84.4 MCH 28.8 MCHC 34.1 RDW 14.0 Plt Count 272 MPV 10.7 Immature Gran % (Auto) 0.6 H Neut % (Auto) 80.8 H Lymph % (Auto) 7.1 L Turner % (Auto) 8.2 Eos % (Auto) 3.2 Baso % (Auto) 0.1 Lymph # (Auto) 1.1 L Turner # (Auto) 1.3 H Eos # (Auto) 0.5 H Baso # (Auto) 0.0 Abs Immat Gran (auto) 0.09 H Absolute Neuts (auto) 12.4 H Absolute Nucleated RBC 0.000 Nucleated RBC % (auto) 0.0 Smear Tech's Comments ESR Anion Gap 12 Estim Creat Clear Calc 135.2 Estimated GFR > 60 Random Glucose 96 Lactic Acid 0.8 Calcium 8.8 Magnesium Total Bilirubin 0.8 AST 36 H ALT 44 H Alkaline Phosphatase 108 Troponin I High Sens C-Reactive Protein 25.73 H B-Natriuretic Peptide Total Protein 6.8 Albumin 3.2 L Beta HCG, Quant Urine Color Urine Appearance Urine pH Ur Specific Normanna Urine Protein Urine Glucose (UA) Urine Ketones Urine Blood Urine Nitrite Ur Leukocyte Esterase Urine RBC Urine WBC Ur Squamous Epith Cells Urine Bacteria Hyaline Casts Influenza Type A (PCR) Influenza Type B (PCR) RSV RNA Qual (PCR) SARS-CoV-2 RNA (RT-PCR) Procedures Date of Service Date of Service: 04/08/24 Progress Note: A&P Assessment and plan (1) Fever postop: Status: Acute Plan 1. Admit 2. Continue NPO, IV fluids and IV antibiotics empirically 3. F/up Urine cultures 4. Thromboprophylaxis Time Spent With Patient Time: Total time managing care of this patient today ____ minutes. Quality Stroke Does the patient have a stroke diagnosis?: No VTE Prior VTE?: No VTE Risk Level:: Surgical - moderate VTE Device Contraindication: N/A - Device Ordered VTE Drug Contraindication: Treatment Not Indicated
[2024-04-08 08:06] VITALS: BP 100/54; PULSE 80; RESP 18; TEMP 36.3; O2SAT 97
[2024-04-08 09:02] VITALS: BP 127/67; PULSE 87; RESP 20; TEMP 36.2; O2SAT 98
[2024-04-08] MEDS: Fondaparinux Sodium 2.5 MG/0.5 ML SYRINGE SUBCUT (09:09)
[2024-04-08 12:06] VITALS: TEMP 36.9
[2024-04-08 15:24] VITALS: BP 119/56; PULSE 90; RESP 18; TEMP 36.7; O2SAT 97
[2024-04-08] MEDS: ondansetron HCL 4 MG/2 ML VIAL IVPUSH (15:29)
--- NOTE | 2024-04-08 15:40 | MHC.CM.PN ---
CM MET WITH PT AT BEDSIDE. PT LIVES WITH SPOUSE. 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 PCP DR. ALARCON DP: HOME, NO SERVICES IS THE GOAL. SPOUSE WILL TRANSPORT. CM WILL CONTINUE TO FOLLOW FOR ANY CHANGE TO DC PLAN/NEEDS
[2024-04-08] MEDS: Cyanocobalamin (Vitamin B-12) 1,000 MCG/ML VIAL 1000 MCG IM (15:48)
[2024-04-08] MEDS: Thiamine HCL 200 MG/2 ML VIAL 100 MG IM (15:48)
[2024-04-08] MEDS: Folic Acid 1 MG in 0.9 % Sodium Chloride 50 ML 100.4 MG IV (16:35)
[2024-04-08 19:43] VITALS: BP 106/57; PULSE 86; RESP 16; TEMP 36.8; O2SAT 97
[2024-04-08] MEDS: 0.9 % Sodium Chloride Flush 3 ML SYRINGE IVFLUSH (23:23)
[2024-04-09 04:00] VITALS: BP 123/70; PULSE 95; RESP 16; TEMP 37.2; O2SAT 95
[2024-04-09] MEDS: Pantoprazole Sodium 40 MG/10 ML VIAL IVPUSH ×2 (05:12→15:48)
[2024-04-09] MEDS: Acetaminophen 1,000 MG/100 ML PIGGYBACK 400 MG IV ×4 (05:20→21:31)
[2024-04-09] MEDS: Lactated Ringers 1,000 ML 150 ML IVCONT ×2 (05:21→21:44)
[2024-04-09] MEDS: metroNIDAZOLE/NS 500 MG/100 ML PIGGYBACK 100 MG IV ×3 (05:49→21:38)
[2024-04-09 06:48] LABS: Alanine Aminotransferase 40 U/L (0-31); Albumin Level 3.2 g/dL (3.5-5.0); Alkaline Phosphatase 128 U/L (39-117); Anion Gap 15 (12-20); Aspartate Amino Transferase 28 U/L (5-31); Bilirubin Total 0.5 mg/dL (0.0-1.0); Blood Urea Nitrogen 7 mg/dL (9-16); C Reactive Protein 28.22 mg/dL (< or = 0.50); Calcium 8.7 mg/dL (8.4-10.2); Carbon Dioxide 20 mmol/L (22-29); Chloride 106 mmol/L (96-108); Creatinine Clr Calc Pharmacy 122.5; Estimated Glomerular Filt Rate > 60; Glucose Random 86 mg/dL (60-115); Potassium 3.7 mmol/L (3.3-5.1); Sodium 137 mmol/L (135-145); Total Protein 6.9 g/dL (6.5-8.0)
[2024-04-09 06:52] LABS: Lactic Acid 0.8 mmol/L (0.5-2.0)
[2024-04-09 07:59] VITALS: BP 112/67; PULSE 87; RESP 17; TEMP 36.4; O2SAT 96
[2024-04-09 08:26] LABS: MANUAL DIFF FLAG NO
[2024-04-09 08:33] LABS: Basophils Percent Auto 0.1 % (0-2); Eosinophils Absolute Auto 0.4 X10*3/uL (0.0-0.4); Eosinophils Percent Auto 2.7 % (0-4); Hematocrit 34.1 % (37.0-47.0); Hemoglobin 11.8 g/dl (12.0-16.0); Imm Gran Abs Auto 0.11 X10*3/uL (0.00-0.03); Imm Gran Pct Auto 0.7 % (0.0-0.4); Lymphocytes Absolute Auto 1.2 X10*3/uL (1.2-4.9); Lymphocytes Percent Auto 7.7 % (20-40); Mean Corpuscular HGB Conc 34.6 g/dl (31.0-35.0); Mean Corpuscular Hemoglobin 29.1 pg (27.0-33.0); Mean Corpuscular Volume 84.2 fL (80.0-98.0); Mean Platelet Volume 10.6 fL (9.4-12.3); Monocytes Absolute Auto 1.3 X10*3/uL (0.1-1.2); Monocytes Percent Auto 7.8 % (2-11); Neutrophils Absolute Auto 13.1 x10*3/uL (2.0-8.3); Platelet Count 308 X10*3/uL (160-400); Red Blood Count 4.05 X10*6/uL (4.20-5.50); White Blood Count 16.2 X10*3/uL (4.8-10.8)
[2024-04-09] MEDS: Fondaparinux Sodium 2.5 MG/0.5 ML SYRINGE SUBCUT (09:02)
[2024-04-09] MEDS: Diatrizoate Meglumine, Sodium 120 ML SOLUTION 100 ML PO (12:55)
--- NOTE | 2024-04-09 13:05 | P.PNGS_ITS ---
Subjective Subjective Date of Service: 04/09/24 Interval history: Feels better today. Denies any abdominal pain or shoulder pain. No fevers overnight. Blood cultures negative for 24hrs No nausea UGI done but not read. Per my review do not see any contrast extravasation, stenosis or SBO. Physical Exam 2 Vital Signs: Vital Signs: Last Vital Signs Temp 97.6 F 04/09/24 07:59 Pulse 87 04/09/24 07:59 Resp 17 04/09/24 07:59 BP 112/67 04/09/24 07:59 Pulse Ox 96 04/09/24 07:59 O2 Del Method Room Air 04/09/24 07:59 BMI result Body Mass Index 46.6 GI: Inspection: Yes normal to inspection, Yes incision (clean, dry and intact) and Yes obesity Palpation (GI): Soft to palpation Extrem: Right lower extremity: normal to inspection (no calf tenderness) L eft lower extremity: normal to inspection (no calf tenderness) Objective Data Active Medications Fondaparinux (Fondaparinux Sodium 2.5 Mg/0.5 Ml Syringe) 2.5 mg SUBCUT Q24H [facility] Last Admin: 04/09/24 09:02 Dose: 2.5 mg Documented By: ISAIAH Hydromorphone HCl (Hydromorphone Hcl 0.5 Mg/0.5 Ml Syringe) 0.25 mg IVPUSH Q4H PRN; Protocol PRN Reason: Pain, Moderate(Pain Scale 4-6) Lactated Ringer's (Lr) 1,000 mls @ 150 mls/hr IVCONT .Q6H40M [facility] Last Infusion: 04/09/24 12:05 Dose: Infused Documented By: ISAIAH Metronidazole (Flagyl) 500 mg in 100 mls @ 100 mls/hr IV Q8H [facility] Last Infusion: 04/09/24 07:08 Dose: Infused Documented By: ISAIAH Acetaminophen (Ofirmev) 1,000 mg in 100 mls @ 400 mls/hr IV Q6H [facility] Last Infusion: 04/09/24 09:23 Dose: Infused Documented By: ISAIAH Ondansetron HCl (Ondansetron Hcl 4 Mg/2 Ml Vial) 4 mg IVPUSH Q6H PRN PRN Reason: Nausea Last Admin: 04/08/24 15:29 Dose: 4 mg Documented By: AMY Pantoprazole Sodium (Pantoprazole Sodium 40 Mg/10 Ml Vial) 40 mg IVPUSH BID@0630,1630 [facility] Last Admin: 04/09/24 05:12 Dose: 40 mg Documented By: ANALILIA Sodium Chloride (0.9 % Sodium Chloride Flush 3 Ml Syringe) 3 ml IVFLUSH QSHIFT [facility] Last Admin: 04/09/24 07:08 Dose: Not Given Documented By: ISAIAH Non-Admin Reason: IV Running Labs 04/09/24 08:14 04/09/24 06:15 Labs: Laboratory Results - last 24 hr 04/09/24 04/09/24 06:15 08:14 MCV 84.2 MCH 29.1 MCHC 34.6 RDW 14.0 Plt Count 308 MPV 10.6 Immature Gran % (Auto) 0.7 H Neut % (Auto) 81.0 H Lymph % (Auto) 7.7 L Sanders % (Auto) 7.8 Eos % (Auto) 2.7 Baso % (Auto) 0.1 Lymph # (Auto) 1.2 Sanders # (Auto) 1.3 H Eos # (Auto) 0.4 Baso # (Auto) 0.0 Abs Immat Gran (auto) 0.11 H Absolute Neuts (auto) 13.1 H Absolute Nucleated RBC 0.000 Nucleated RBC % (auto) 0.0 Hold Purple Top SEE NOTE Anion Gap 15 Estim Creat Clear Calc 122.5 Estimated GFR > 60 Random Glucose 86 Lactic Acid 0.8 Calcium 8.7 Total Bilirubin 0.5 AST 28 ALT 40 H Alkaline Phosphatase 128 H C-Reactive Protein 28.22 H Total Protein 6.9 Albumin 3.2 L Microbiology Microbiology Results: Microbiology 04/07/24 16:10 Blood Culture - Preliminary Blood - Venous No growth after 24 hours. 04/07/24 15:59 Blood Culture - Preliminary Blood - Venous No growth after 24 hours. Procedures Date of Service Date of Service: 04/09/24 Progress Note: A&P Assessment and plan (1) Leucocytosis: Status: Acute Assessment and Plan: 1. Continue NPO, IV fluids and IV antibiotics 2. Poss repeat CT chest/abd/pelvis tomorrow D/w patient (2) Fever postop: Status: Acute Time Spent With Patient Time: Total time managing care of this patient today ____ minutes. Quality Stroke Does the patient have a stroke diagnosis?: No VTE Prior VTE?: No VTE Risk Level:: Surgical - moderate VTE Device Contraindication: N/A - Device Ordered VTE Drug Contraindication: Treatment Not Indicated
[2024-04-09 15:56] VITALS: BP 133/71; PULSE 78; RESP 18; TEMP 37; O2SAT 98
[2024-04-09 19:54] VITALS: BP 114/63; PULSE 80; RESP 20; TEMP 36.3; O2SAT 97
[2024-04-09 21:00] VITALS: O2SAT 98
[2024-04-09] MEDS: 0.9 % Sodium Chloride Flush 3 ML SYRINGE IVFLUSH (21:44)
[2024-04-10 03:15] VITALS: BP 125/66; PULSE 76; RESP 16; TEMP 36.4; O2SAT 94
[2024-04-10] MEDS: metroNIDAZOLE/NS 500 MG/100 ML PIGGYBACK 100 MG IV ×3 (05:29→21:38)
[2024-04-10] MEDS: Pantoprazole Sodium 40 MG/10 ML VIAL IVPUSH ×2 (05:29→16:55)
[2024-04-10 06:09] LABS: MANUAL DIFF FLAG NO
[2024-04-10 06:14] LABS: Basophils Percent Auto 0.2 % (0-2); Eosinophils Absolute Auto 0.5 X10*3/uL (0.0-0.4); Eosinophils Percent Auto 5.1 % (0-4); Hematocrit 33.2 % (37.0-47.0); Hemoglobin 11.1 g/dl (12.0-16.0); Imm Gran Abs Auto 0.05 X10*3/uL (0.00-0.03); Imm Gran Pct Auto 0.5 % (0.0-0.4); Lymphocytes Absolute Auto 1.1 X10*3/uL (1.2-4.9); Lymphocytes Percent Auto 10.7 % (20-40); Mean Corpuscular HGB Conc 33.4 g/dl (31.0-35.0); Mean Corpuscular Hemoglobin 28.3 pg (27.0-33.0); Mean Corpuscular Volume 84.7 fL (80.0-98.0); Mean Platelet Volume 10.6 fL (9.4-12.3); Monocytes Absolute Auto 0.9 X10*3/uL (0.1-1.2); Neutrophils Absolute Auto 8.1 x10*3/uL (2.0-8.3); Neutrophils Percent Auto 75.5 % (45-73); Platelet Count 288 X10*3/uL (160-400); Red Blood Count 3.92 X10*6/uL (4.20-5.50); White Blood Count 10.7 X10*3/uL (4.8-10.8)
[2024-04-10 06:30] LABS: Alanine Aminotransferase 33 U/L (0-31); Alkaline Phosphatase 127 U/L (39-117); Anion Gap 14 (12-20); Aspartate Amino Transferase 19 U/L (5-31); Bilirubin Total 0.3 mg/dL (0.0-1.0); Blood Urea Nitrogen 7 mg/dL (9-16); C Reactive Protein 30.25 mg/dL (< or = 0.50); Calcium 8.5 mg/dL (8.4-10.2); Carbon Dioxide 22 mmol/L (22-29); Chloride 105 mmol/L (96-108); Creatinine Clr Calc Pharmacy 135.2; Estimated Glomerular Filt Rate > 60; Glucose Random 72 mg/dL (60-115); Potassium 3.7 mmol/L (3.3-5.1); Sodium 137 mmol/L (135-145); Total Protein 6.8 g/dL (6.5-8.0)
[2024-04-10 07:37] VITALS: BP 91/53; PULSE 78; RESP 18; TEMP 36.7; O2SAT 96
[2024-04-10] MEDS: Fondaparinux Sodium 2.5 MG/0.5 ML SYRINGE SUBCUT (08:01)
[2024-04-10] MEDS: Lactated Ringers 1,000 ML 150 ML IVCONT ×2 (10:45→16:56)
[2024-04-10] MEDS: Acetaminophen 1,000 MG/100 ML PIGGYBACK 400 MG IV ×3 (10:45→20:34)
[2024-04-10] MEDS: iohexoL 350 MG/ML 75 ML INFUS..BTL 65 ML IV (12:34)
[2024-04-10] MEDS: levoFLOXacin/D5W 750 MG/150 ML PIGGYBACK 100 MG IV (15:18)
[2024-04-10] MEDS: 0.9 % Sodium Chloride Flush 3 ML SYRINGE IVFLUSH (15:24)
--- NOTE | 2024-04-10 15:48 | MHC.CM.PN ---
Patient remains NPO. She is not medically cleared for discharge. DP home self care vs VNA services. Patient's spouse will provide transportation home.
[2024-04-10 15:54] VITALS: BP 124/78; PULSE 77; RESP 18; TEMP 36.1; O2SAT 97
[2024-04-10 18:13] VITALS: BP 108/64; PULSE 98; RESP 18; TEMP 36.3; O2SAT 98
[2024-04-10 19:27] VITALS: BP 127/76; PULSE 66; RESP 18; TEMP 36; O2SAT 98
--- NOTE | 2024-04-10 20:36 | P.PNGS_ITS ---
Subjective Subjective Date of Service: 04/10/24 Interval history: Patient feels better than yesterday. No night sweats. More energy. Had several bowel movements. Feeling hungry and tolerating the shakes well. No nausea. Denies any abdominal pain or left shoulder pain However, the repeat CT chest/abd/pelvis I ordered today shows more free intrabadominal air at the surgical site and more fluid in the area that could represent an early abscess. Also there is slight increase of the left pleural effusion in my view although the Radiologist did not think so. I contacted Dr Livingston to see if this collection could be drained if needed and I am waiting for an answer All findings were discussed in detail with the patient and her Physical Exam 2 Vital Signs: Vital Signs: Last Vital Signs Temp 96.8 F 04/10/24 19:27 Pulse 66 04/10/24 19:27 Resp 18 04/10/24 19:27 BP 127/76 04/10/24 19:27 Pulse Ox 98 04/10/24 19:27 O2 Del Method Room Air 04/10/24 20:16 BMI result Body Mass Index 46.6 Const: General: cooperative, healthy appearing, no acute distress, alert and awake GI: Inspection: Yes incision (clean, dry and intact) and Yes obesity P alpation (GI): Soft to palpation Extrem: Right lower extremity: normal to inspection (no calf tenderness) L eft lower extremity: normal to inspection (no calf tenderness) Objective Data Active Medications Fondaparinux (Fondaparinux Sodium 2.5 Mg/0.5 Ml Syringe) 2.5 mg SUBCUT Q24H [facility] Last Admin: 04/10/24 08:01 Dose: 2.5 mg Documented By: ELOINA Hydromorphone HCl (Hydromorphone Hcl 0.5 Mg/0.5 Ml Syringe) 0.25 mg IVPUSH Q4H PRN; Protocol PRN Reason: Pain, Moderate(Pain Scale 4-6) Metronidazole (Flagyl) 500 mg in 100 mls @ 100 mls/hr IV Q8H [facility] Last Infusion: 04/10/24 15:25 Dose: Infused Documented By: ELOINA Acetaminophen (Ofirmev) 1,000 mg in 100 mls @ 400 mls/hr IV Q6H [facility] Last Admin: 04/10/24 20:34 Dose: 400 mls/hr Documented By: ISAIAH Lactated Ringer's (Lr) 1,000 mls @ 150 mls/hr IVCONT .Q6H40M [facility] Last Admin: 04/10/24 16:56 Dose: 150 mls/hr Documented By: ELOINA Levofloxacin (Levaquin) 750 mg in 150 mls @ 100 mls/hr IV Q24H [facility] Last Infusion: 04/10/24 16:59 Dose: Infused Documented By: ELOINA Ondansetron HCl (Ondansetron Hcl 4 Mg/2 Ml Vial) 4 mg IVPUSH Q6H PRN PRN Reason: Nausea Last Admin: 04/08/24 15:29 Dose: 4 mg Documented By: AMY Pantoprazole Sodium (Pantoprazole Sodium 40 Mg/10 Ml Vial) 40 mg IVPUSH BID@0630,1630 [facility] Last Admin: 04/10/24 16:55 Dose: 40 mg Documented By: ELOINA Sodium Chloride (0.9 % Sodium Chloride Flush 3 Ml Syringe) 3 ml IVFLUSH QSHIFT [facility] Last Admin: 04/10/24 15:24 Dose: 3 ml Documented By: ELOINA Labs 04/10/24 05:28 04/10/24 05:28 Labs: Laboratory Results - last 24 hr 04/10/24 05:28 MCV 84.7 MCH 28.3 MCHC 33.4 RDW 14.0 Plt Count 288 MPV 10.6 Immature Gran % (Auto) 0.5 H Neut % (Auto) 75.5 H Lymph % (Auto) 10.7 L [place] % (Auto) 8.0 Eos % (Auto) 5.1 H Baso % (Auto) 0.2 Lymph # (Auto) 1.1 L [place] # (Auto) 0.9 Eos # (Auto) 0.5 H Baso # (Auto) 0.0 Abs Immat Gran (auto) 0.05 H Absolute Neuts (auto) 8.1 Absolute Nucleated RBC 0.000 Nucleated RBC % (auto) 0.0 Anion Gap 14 Estim Creat Clear Calc 135.2 Estimated GFR > 60 Random Glucose 72 Calcium 8.5 Total Bilirubin 0.3 AST 19 ALT 33 H Alkaline Phosphatase 127 H C-Reactive Protein 30.25 H Total Protein 6.8 Albumin 3.0 L Microbiology Microbiology Results: Microbiology 04/07/24 16:10 Blood Culture - Preliminary Blood - Venous No growth after 48 hours. 04/07/24 15:59 Blood Culture - Preliminary Blood - Venous No growth after 48 hours. Procedures Date of Service Date of Service: 04/10/24 Progress Note: A&P Assessment and plan (1) Leucocytosis: Status: Acute Assessment and Plan: 1. NPO for tonight 2. Continue IV antibiotics and Arixtra 3. Waiting for IR to respond Time Spent With Patient Time: Total time managing care of this patient today ____ minutes. Quality Stroke Does the patient have a stroke diagnosis?: No VTE Prior VTE?: No VTE Risk Level:: Surgical - moderate VTE Device Contraindication: N/A - Device Ordered VTE Drug Contraindication: Treatment Not Indicated
[2024-04-11] MEDS: Lactated Ringers 1,000 ML 150 ML IVCONT ×3 (00:59→18:25)
[2024-04-11 03:09] VITALS: BP 134/74; PULSE 68; RESP 16; TEMP 36.2; O2SAT 98
[2024-04-11] MEDS: metroNIDAZOLE/NS 500 MG/100 ML PIGGYBACK 100 MG IV ×3 (05:32→22:14)
[2024-04-11 05:58] LABS: MANUAL DIFF FLAG NO
[2024-04-11 06:06] LABS: Basophils Percent Auto 0.2 % (0-2); Eosinophils Absolute Auto 0.6 X10*3/uL (0.0-0.4); Eosinophils Percent Auto 5.9 % (0-4); Hematocrit 36.7 % (37.0-47.0); Hemoglobin 12.3 g/dl (12.0-16.0); Imm Gran Abs Auto 0.04 X10*3/uL (0.00-0.03); Imm Gran Pct Auto 0.4 % (0.0-0.4); Lymphocytes Absolute Auto 1.2 X10*3/uL (1.2-4.9); Lymphocytes Percent Auto 12.1 % (20-40); Mean Corpuscular HGB Conc 33.5 g/dl (31.0-35.0); Mean Corpuscular Hemoglobin 28.2 pg (27.0-33.0); Mean Corpuscular Volume 84.2 fL (80.0-98.0); Mean Platelet Volume 10.3 fL (9.4-12.3); Monocytes Absolute Auto 0.7 X10*3/uL (0.1-1.2); Monocytes Percent Auto 7.2 % (2-11); Neutrophils Absolute Auto 7.1 x10*3/uL (2.0-8.3); Neutrophils Percent Auto 74.2 % (45-73); Platelet Count 344 X10*3/uL (160-400); Red Blood Count 4.36 X10*6/uL (4.20-5.50); Red Cell Distribution Width 13.9 % (11.0-16.0); White Blood Count 9.6 X10*3/uL (4.8-10.8)
[2024-04-11 06:16] LABS: Lactic Acid 0.7 mmol/L (0.5-2.0)
[2024-04-11 06:22] LABS: Alanine Aminotransferase 24 U/L (0-31); Albumin Level 3.1 g/dL (3.5-5.0); Alkaline Phosphatase 116 U/L (39-117); Anion Gap 14 (12-20); Aspartate Amino Transferase 14 U/L (5-31); Bilirubin Total 0.2 mg/dL (0.0-1.0); Blood Urea Nitrogen 6 mg/dL (9-16); C Reactive Protein 21.63 mg/dL (< or = 0.50); Calcium 8.4 mg/dL (8.4-10.2); Carbon Dioxide 22 mmol/L (22-29); Chloride 106 mmol/L (96-108); Creatinine Clr Calc Pharmacy 153.2; Estimated Glomerular Filt Rate > 60; Glucose Random 79 mg/dL (60-115); Potassium 3.7 mmol/L (3.3-5.1); Sodium 138 mmol/L (135-145); Total Protein 6.8 g/dL (6.5-8.0)
[2024-04-11 07:29] VITALS: BP 118/57; PULSE 60; RESP 18; TEMP 37; O2SAT 96
[2024-04-11] MEDS: Fondaparinux Sodium 2.5 MG/0.5 ML SYRINGE SUBCUT (09:47)
--- NOTE | 2024-04-11 09:50 | MHC.CM.PN ---
Addendum entered by Nancy Valero 04/11/24 10:18: CM MET WITH PT TO DISCUSS DC PLANNING SHE IS AWARE SHE WILL NEED IV ABX AT DC AND THE PLAN IS TO HAVE HER LINE PLACED ON SUNDAY PT REPORTS SHE WAS CONSIDERING SIGNING OUT BECAUSE HER FAMILY, INCLUDING HER 3 SMALL CHILDREN, ARE GOING ON A CRUISE AND NOW THAT SHE CANNOT GO, SHE HAS TO GET SEVERAL THINGS DONE TO ENSURE THEY CAN STILL GO, INCLUDING GETTING A NOTARIZED DOCUMENT GIVING THE KIDS STEP-FATHER LEGAL RIGHTS TO TAKE THEM OUT OF THE COUNTRY. SHE ALSO REPORTS BEING WORRIED ABOUT HER SON WHO IS A DIABETIC AND HIM HAVING EVERYTHING HE NEEDS. SHE SAYS HER TALKED HER OUT OF SIGNING OUT, BUT SHE IS STILL TRYING TO FIGURE OUT HOW TO COORDINATE ALL OF THESE THINGS. SHE IS SPEAKING WITH HER NOW, CM WILL RETURN TO SEE IF THERE IS ANY ASSISTANCE THAT CAN BE OFFERED Original Note: LONG RECEIVED A MESSAGE THAT PT WILL NEED IV ABX AT DC (ANGELO AND SHAHID) PLAN IS FOR PT TO REMAIN OVER THE WEEKEND AND HAVE A PICC LINE PLACED ON SUNDAY REFERRALS MADE TO [facility]
--- NOTE | 2024-04-11 15:09 | PM.PNGS ---
Subjective Subjective Date of Service: 04/11/24 Interval history: Feels well. No new issues. WBC and CRP are down No fevers or abdominal pain Dr. Livingston contacted me that the location of the collection is not accessible for percutaneous drainage Physical Exam Vital Signs: Vital Signs: Last Vital Signs Temp 98.6 F 04/11/24 07:29 Pulse 60 04/11/24 07:29 Resp 18 04/11/24 07:29 BP 118/57 L 04/11/24 07:29 Pulse Ox 96 04/11/24 07:29 O2 Del Method Room Air 04/11/24 07:29 BMI result Body Mass Index 46.6 GI: Inspection: Yes incision (healing well) and Yes obesity Palpation (GI): Soft to palpation (no tenderness) Extrem: Right lower extremity: normal to inspection (no calf tenderness) Left lower extremity: normal to inspection (no calf tenderness) Objective Data Active Medications Fondaparinux (Fondaparinux Sodium 2.5 Mg/0.5 Ml Syringe) 2.5 mg SUBCUT Q24H [facility] Last Admin: 04/11/24 09:47 Dose: 2.5 mg Documented By: RALPH Hydromorphone HCl (Hydromorphone Hcl 0.5 Mg/0.5 Ml Syringe) 0.25 mg IVPUSH Q4H PRN; Protocol PRN Reason: Pain, Moderate(Pain Scale 4-6) Metronidazole (Flagyl) 500 mg in 100 mls @ 100 mls/hr IV Q8H [facility] Last Admin: 04/11/24 14:19 Dose: 100 mls/hr Documented By: RALPH Lactated Ringer's (Lr) 1,000 mls @ 150 mls/hr IVCONT .Q6H40M [facility] Last Admin: 04/11/24 09:49 Dose: 150 mls/hr Documented By: RALPH Levofloxacin (Levaquin) 750 mg in 150 mls @ 100 mls/hr IV Q24H [facility] Last Infusion: 04/10/24 16:59 Dose: Infused Documented By: ELOINA Ondansetron HCl (Ondansetron Hcl 4 Mg/2 Ml Vial) 4 mg IVPUSH Q6H PRN PRN Reason: Nausea Last Admin: 04/08/24 15:29 Dose: 4 mg Documented By: AMY Sodium Chloride (0.9 % Sodium Chloride Flush 3 Ml Syringe) 3 ml IVFLUSH QSHIFT [facility] Last Admin: 04/11/24 07:38 Dose: Not Given Documented By: ELOINA Non-Admin Reason: IV Running Labs 04/11/24 05:50 04/11/24 05:50 Labs: Laboratory Results - last 24 hr 04/11/24 05:50 MCV 84.2 MCH 28.2 MCHC 33.5 RDW 13.9 Plt Count 344 MPV 10.3 Immature Gran % (Auto) 0.4 Neut % (Auto) 74.2 H Lymph % (Auto) 12.1 L [place] % (Auto) 7.2 Eos % (Auto) 5.9 H Baso % (Auto) 0.2 Lymph # (Auto) 1.2 [place] # (Auto) 0.7 Eos # (Auto) 0.6 H Baso # (Auto) 0.0 Abs Immat Gran (auto) 0.04 H Absolute Neuts (auto) 7.1 Absolute Nucleated RBC 0.000 Nucleated RBC % (auto) 0.0 Anion Gap 14 Estim Creat Clear Calc 153.2 Estimated GFR > 60 Random Glucose 79 Lactic Acid 0.7 Calcium 8.4 Total Bilirubin 0.2 AST 14 ALT 24 Alkaline Phosphatase 116 C-Reactive Protein 21.63 H Total Protein 6.8 Albumin 3.1 L Procedures Date of Service Date of Service: 04/11/24 Progress Note: A&P Assessment and plan (1) Leucocytosis: Status: Acute Assessment and Plan: 1. Start back bariatric phase 3 diet with only one protein shake today. If the blood work tomorrow is better, will have her have two shakes and then 3 on Sunday. If she does well over the weekend, we will put a PICC line on Sunday for IV antibiotics and discharge her on phase 3 diet and IV antibiotics. D/w plan with patient and family. Time Spent With Patient Time: Total time managing care of this patient today ____ minutes. Quality Stroke Does the patient have a stroke diagnosis?: No VTE Prior VTE?: No VTE Risk Level:: Surgical - moderate VTE Device Contraindication: N/A - Device Ordered VTE Drug Contraindication: Treatment Not Indicated
[2024-04-11 15:24] VITALS: BP 136/87; PULSE 81; RESP 18; TEMP 36.7; O2SAT 97
[2024-04-11] MEDS: levoFLOXacin/D5W 500 MG/100 ML PIGGYBACK 100 MG IV (16:12)
[2024-04-11] MEDS: 0.9 % Sodium Chloride Flush 3 ML SYRINGE IVFLUSH (16:18)
[2024-04-11] MEDS: levoFLOXacin/D5W 250 MG/50 ML PIGGYBACK 50 MG IV (17:12)
[2024-04-11 19:33] VITALS: BP 121/84; PULSE 60; RESP 18; TEMP 36.5; O2SAT 97
[2024-04-11 21:00] VITALS: O2SAT 95
[2024-04-12] MEDS: Lactated Ringers 1,000 ML 150 ML IVCONT ×3 (02:02→20:29)
[2024-04-12 04:00] VITALS: BP 97/55; PULSE 69; RESP 16; TEMP 36; O2SAT 96
[2024-04-12] MEDS: metroNIDAZOLE/NS 500 MG/100 ML PIGGYBACK 100 MG IV ×3 (05:31→22:00)
[2024-04-12 06:05] LABS: MANUAL DIFF FLAG NO
[2024-04-12 06:13] LABS: Basophils Percent Auto 0.3 % (0-2); Eosinophils Absolute Auto 0.7 X10*3/uL (0.0-0.4); Eosinophils Percent Auto 6.4 % (0-4); Hematocrit 34.6 % (37.0-47.0); Hemoglobin 11.7 g/dl (12.0-16.0); Imm Gran Abs Auto 0.03 X10*3/uL (0.00-0.03); Imm Gran Pct Auto 0.3 % (0.0-0.4); Lymphocytes Absolute Auto 1.8 X10*3/uL (1.2-4.9); Mean Corpuscular HGB Conc 33.8 g/dl (31.0-35.0); Mean Corpuscular Hemoglobin 28.4 pg (27.0-33.0); Mean Platelet Volume 10.7 fL (9.4-12.3); Monocytes Absolute Auto 0.8 X10*3/uL (0.1-1.2); Monocytes Percent Auto 7.7 % (2-11); Neutrophils Absolute Auto 6.9 x10*3/uL (2.0-8.3); Neutrophils Percent Auto 67.3 % (45-73); Platelet Count 330 X10*3/uL (160-400); Red Blood Count 4.12 X10*6/uL (4.20-5.50); Red Cell Distribution Width 13.8 % (11.0-16.0); White Blood Count 10.2 X10*3/uL (4.8-10.8)
[2024-04-12 06:42] LABS: Alanine Aminotransferase 23 U/L (0-31); Alkaline Phosphatase 114 U/L (39-117); Anion Gap 12 (12-20); Aspartate Amino Transferase 17 U/L (5-31); Bilirubin Total 0.2 mg/dL (0.0-1.0); Blood Urea Nitrogen 5 mg/dL (9-16); C Reactive Protein 14.41 mg/dL (< or = 0.50); Calcium 8.7 mg/dL (8.4-10.2); Carbon Dioxide 25 mmol/L (22-29); Chloride 106 mmol/L (96-108); Creatinine Clr Calc Pharmacy 145.9; Estimated Glomerular Filt Rate > 60; Glucose Random 84 mg/dL (60-115); Potassium 3.5 mmol/L (3.3-5.1); Sodium 139 mmol/L (135-145); Total Protein 6.4 g/dL (6.5-8.0)
[2024-04-12 07:36] VITALS: BP 123/70; PULSE 77; RESP 12; TEMP 36; O2SAT 96
[2024-04-12] MEDS: Fondaparinux Sodium 2.5 MG/0.5 ML SYRINGE SUBCUT (07:45)
--- NOTE | 2024-04-12 12:15 | PM.PNGS ---
Subjective Subjective Date of Service: 04/12/24 Patient reports: no new complaints and feels better Interval history: 38 yo female s/p laparoscopic revision of previous gastric bypass performed on 04/01/24 (uneventful) d/c home POD 1, returned to hospital with back pain and found to have fever and luekocytosis. Initial imaging w scant collection between remenant and pouch without evidence of leak. Repeat CT with increased accumulation of fluid as well as min pleural effusion but pt was clinically improving by way of normalization of WBC, no fever and subjective improvement. CRP elevated but has since declined steadily. She has remained on IV ABX and tolerating PO shakes and PO water. No GI/ complaints. Ambulating freely in the hallway Physical Exam Vital Signs: Vital Signs: Last Vital Signs Temp 96.8 F 04/12/24 07:36 Pulse 77 04/12/24 07:36 Resp 12 04/12/24 07:36 BP 123/70 04/12/24 07:36 Pulse Ox 96 04/12/24 07:36 O2 Del Method Room Air 04/12/24 07:36 BMI result Body Mass Index 46.6 Resp: Effort & Inspection: normal respiratory effort Auscultation: clear to auscultation bilaterally Cardio: Palpation: normal PMI Rate: regular rate GI: Inspection: Yes normal to inspection and Yes incision (c/d/i) Palpation (GI): Soft to palpation Auscultation: normal bowel sounds Objective Data Active Medications Fondaparinux (Fondaparinux Sodium 2.5 Mg/0.5 Ml Syringe) 2.5 mg SUBCUT Q24H [facility] Last Admin: 04/12/24 07:45 Dose: 2.5 mg Documented By: RALPH Hydromorphone HCl (Hydromorphone Hcl 0.5 Mg/0.5 Ml Syringe) 0.25 mg IVPUSH Q4H PRN; Protocol PRN Reason: Pain, Moderate(Pain Scale 4-6) Metronidazole (Flagyl) 500 mg in 100 mls @ 100 mls/hr IV Q8H [facility] Last Infusion: 04/12/24 06:39 Dose: Infused Documented By: MANNY Levofloxacin (Levaquin) 500 mg in 100 mls @ 100 mls/hr IV Q24H [facility] Last Infusion: 04/11/24 17:12 Dose: Infused Documented By: RALPH Levofloxacin (Levaquin) 250 mg in 50 mls @ 50 mls/hr IV Q24H [facility] Last Infusion: 04/11/24 18:20 Dose: Infused Documented By: RALPH Ondansetron HCl (Ondansetron Hcl 4 Mg/2 Ml Vial) 4 mg IVPUSH Q6H PRN PRN Reason: Nausea Last Admin: 04/08/24 15:29 Dose: 4 mg Documented By: AMY Sodium Chloride (0.9 % Sodium Chloride Flush 3 Ml Syringe) 3 ml IVFLUSH QSHIFT [facility] Last Admin: 04/12/24 07:48 Dose: Not Given Documented By: RALPH Non-Admin Reason: IV Running Labs 04/12/24 05:22 04/12/24 05:22 Labs: Laboratory Results - last 24 hr 04/12/24 05:22 MCV 84.0 MCH 28.4 MCHC 33.8 RDW 13.8 Plt Count 330 MPV 10.7 Immature Gran % (Auto) 0.3 Neut % (Auto) 67.3 Lymph % (Auto) 18.0 L [place] % (Auto) 7.7 Eos % (Auto) 6.4 H Baso % (Auto) 0.3 Lymph # (Auto) 1.8 [place] # (Auto) 0.8 Eos # (Auto) 0.7 H Baso # (Auto) 0.0 Abs Immat Gran (auto) 0.03 Absolute Neuts (auto) 6.9 Absolute Nucleated RBC 0.000 Nucleated RBC % (auto) 0.0 Anion Gap 12 Estim Creat Clear Calc 145.9 Estimated GFR > 60 Random Glucose 84 Calcium 8.7 Total Bilirubin 0.2 AST 17 ALT 23 Alkaline Phosphatase 114 C-Reactive Protein 14.41 H Total Protein 6.4 L Albumin 3.0 L Procedures Date of Service Date of Service: 04/12/24 Progress Note: A&P Assessment and plan (1) Fever postop: Status: Acute Plan resolved fever, normalized wbc. Tolerating PO shakes and water Unclear etiology of fluid accumulation between remnant stomach and revised pouch. Will re-image today to delineate objective mismatch to subjective improvement. Continue IV ABX Once CT done continue oral shakes and water If continued improvement will consider PICC line on sunday and dc home on IV abx Discussed case and plan with Sushila Dunlap and Jamshid Time Spent With Patient Time: Total time managing care of this patient today ____ minutes. Quality Stroke Does the patient have a stroke diagnosis?: No VTE Prior VTE?: No VTE Risk Level:: Surgical - moderate VTE Device Contraindication: N/A - Device Ordered VTE Drug Contraindication: Treatment Not Indicated
[2024-04-12] MEDS: iohexoL 350 MG/ML 100 ML INFUS..BTL 85 ML IV (13:28)
[2024-04-12] MEDS: Diatrizoate Meglumine, Sodium 30 ML SOLUTION PO (13:40)
--- NOTE | 2024-04-12 16:19 | PC.NURSE ---
Per Pharmacy Levo 500mg and IVAbx 250mg to both be given for a total of 750mg, per pharmacy 750mg bags on back order.
[2024-04-12 16:40] VITALS: BP 127/62; PULSE 98; RESP 12; TEMP 36.6; O2SAT 98
[2024-04-12] MEDS: levoFLOXacin/D5W 500 MG/100 ML PIGGYBACK 100 MG IV (16:41)
[2024-04-12 16:51] VITALS: BP 125/73; PULSE 68; RESP 18; TEMP 36.3; O2SAT 97
[2024-04-12] MEDS: levoFLOXacin/D5W 250 MG/50 ML PIGGYBACK 50 MG IV (17:48)
[2024-04-12 20:00] VITALS: BP 113/55; PULSE 60; RESP 16; TEMP 36.2; O2SAT 99
[2024-04-13 00:24] VITALS: BP 122/61; PULSE 83; RESP 16; TEMP 36.8; O2SAT 96
[2024-04-13 04:00] VITALS: BP 108/58; PULSE 69; RESP 16; TEMP 36.7; O2SAT 95
[2024-04-13] MEDS: Lactated Ringers 1,000 ML 150 ML IVCONT ×3 (04:15→17:44)
[2024-04-13 06:18] LABS: Basophils Percent Auto 0.3 % (0-2); Eosinophils Absolute Auto 0.7 X10*3/uL (0.0-0.4); Eosinophils Percent Auto 6.7 % (0-4); Hematocrit 32.6 % (37.0-47.0); Imm Gran Abs Auto 0.05 X10*3/uL (0.00-0.03); Imm Gran Pct Auto 0.5 % (0.0-0.4); Lymphocytes Absolute Auto 1.9 X10*3/uL (1.2-4.9); Lymphocytes Percent Auto 18.8 % (20-40); MANUAL DIFF FLAG SCAN; Mean Corpuscular HGB Conc 33.7 g/dl (31.0-35.0); Mean Corpuscular Hemoglobin 28.6 pg (27.0-33.0); Mean Corpuscular Volume 84.9 fL (80.0-98.0); Mean Platelet Volume 10.5 fL (9.4-12.3); Monocytes Absolute Auto 0.7 X10*3/uL (0.1-1.2); Monocytes Percent Auto 6.6 % (2-11); Neutrophils Absolute Auto 6.7 x10*3/uL (2.0-8.3); Neutrophils Percent Auto 67.1 % (45-73); Platelet Count 355 X10*3/uL (160-400); Red Blood Count 3.84 X10*6/uL (4.20-5.50); Red Cell Distribution Width 13.9 % (11.0-16.0); SCAN SMEAR FLAG 1
[2024-04-13] MEDS: metroNIDAZOLE/NS 500 MG/100 ML PIGGYBACK 100 MG IV ×3 (06:25→22:26)
[2024-04-13 06:42] LABS: SLIDE REVIEW VERIFIED
[2024-04-13 07:07] VITALS: BP 113/60; PULSE 55; RESP 12; TEMP 36.4; O2SAT 97
[2024-04-13] MEDS: Fondaparinux Sodium 2.5 MG/0.5 ML SYRINGE SUBCUT (07:48)
--- NOTE | 2024-04-13 11:09 | P.PNGS_ITS ---
Subjective Subjective Date of Service: 04/13/24 Patient reports: no new complaints, feels better and voiding w/o difficulty Interval history: 38 yo female s/p laparoscopic revision of previous gastric bypass performed on 04/01/24 (uneventful) d/c home POD 1, returned to hospital with back pain and found to have fever and luekocytosis. Initial imaging w scant collection between remenant and pouch without evidence of leak. Repeat CT with increased accumulation of fluid as well as min pleural effusion but pt was clinically improving by way of normalization of WBC, no fever and subjective improvement. CRP elevated but has since declined steadily. 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 Pt feels well today and has made steady and constant improvement subjectively. Physical Exam 2 Vital Signs: Vital Signs: Last Vital Signs Temp 97.6 F 04/13/24 07:07 Pulse 55 04/13/24 07:07 Resp 12 04/13/24 07:07 BP 113/60 04/13/24 07:07 Pulse Ox 97 04/13/24 07:07 O2 Del Method Room Air 04/13/24 07:07 BMI result Body Mass Index 46.6 Resp: Effort & Inspection: normal respiratory effort Auscultation: clear to auscultation bilaterally Cardio: Rate: regular rate Rhythm: regular rhythm GI: Auscultation: normal bowel sounds Objective Data Active Medications Fondaparinux (Fondaparinux Sodium 2.5 Mg/0.5 Ml Syringe) 2.5 mg SUBCUT Q24H [facility] Last Admin: 04/13/24 07:48 Dose: 2.5 mg Documented By: AMY Hydromorphone HCl (Hydromorphone Hcl 0.5 Mg/0.5 Ml Syringe) 0.25 mg IVPUSH Q4H PRN; Protocol PRN Reason: Pain, Moderate(Pain Scale 4-6) Metronidazole (Flagyl) 500 mg in 100 mls @ 100 mls/hr IV Q8H [facility] Last Infusion: 04/13/24 07:30 Dose: Infused Documented By: AMY Levofloxacin (Levaquin) 500 mg in 100 mls @ 100 mls/hr IV Q24H [facility] Last Infusion: 04/12/24 17:42 Dose: Infused Documented By: RALPH Levofloxacin (Levaquin) 250 mg in 50 mls @ 50 mls/hr IV Q24H [facility] Last Infusion: 04/12/24 19:24 Dose: Infused Documented By: MANNY Lactated Ringer's (Lr) 1,000 mls @ 150 mls/hr IVCONT .Q6H40M [facility] Last Infusion: 04/13/24 06:25 Dose: 0 mls/hr Documented By: MANNY Ondansetron HCl (Ondansetron Hcl 4 Mg/2 Ml Vial) 4 mg IVPUSH Q6H PRN PRN Reason: Nausea Last Admin: 04/08/24 15:29 Dose: 4 mg Documented By: AMY Sodium Chloride (0.9 % Sodium Chloride Flush 3 Ml Syringe) 3 ml IVFLUSH QSHIFT [facility] Last Admin: 04/13/24 07:30 Dose: Not Given Documented By: AMY Non-Admin Reason: IV Running Labs 04/13/24 05:28 04/12/24 05:22 Labs: Laboratory Results - last 24 hr 04/13/24 05:28 MCV 84.9 MCH 28.6 MCHC 33.7 RDW 13.9 Plt Count 355 MPV 10.5 Immature Gran % (Auto) 0.5 H Neut % (Auto) 67.1 Lymph % (Auto) 18.8 L [place] % (Auto) 6.6 Eos % (Auto) 6.7 H Baso % (Auto) 0.3 Lymph # (Auto) 1.9 [place] # (Auto) 0.7 Eos # (Auto) 0.7 H Baso # (Auto) 0.0 Abs Immat Gran (auto) 0.05 H Absolute Neuts (auto) 6.7 Absolute Nucleated RBC 0.000 Nucleated RBC % (auto) 0.0 Smear Tech's Comments VERIFIED C-Reactive Protein 10.00 H Microbiology Microbiology Results: Microbiology 04/07/24 16:10 Blood Culture - Final Blood - Venous No growth after 5 days. 04/07/24 15:59 Blood Culture - Final Blood - Venous No growth after 5 days. 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 Gastric leak remains a possibility and therefore will continue a conservative approach. PICC in AM Continue TPN/Lipids at home ice chips for comfort IV ABX Metronidazole 500 mg TID and Levofloxacin 750 mg qd until 04/24/24 Close f/u in office and repeat CT scan 04/21/24 with oral contrast only to completely exclude gastric leak Case discussed in full with pt and explained the anatomy with props and she expressed understanding and had no questions. Case discussed fully with Dr Breen and Dr Dunlap Time Spent With Patient Time: Total time managing care of this patient today ____ minutes. Quality Stroke Does the patient have a stroke diagnosis?: No VTE Prior VTE?: No VTE Risk Level:: Surgical - moderate VTE Device Contraindication: N/A - Device Ordered VTE Drug Contraindication: Treatment Not Indicated
[2024-04-13] MEDS: 0.9 % Sodium Chloride Flush 3 ML SYRINGE IVFLUSH (15:17)
[2024-04-13] MEDS: levoFLOXacin/D5W 500 MG/100 ML PIGGYBACK 100 MG IV (15:18)
[2024-04-13 15:28] VITALS: BP 117/61; PULSE 59; RESP 18; TEMP 36.6; O2SAT 97
[2024-04-13] MEDS: levoFLOXacin/D5W 250 MG/50 ML PIGGYBACK 50 MG IV (16:24)
[2024-04-13 19:07] VITALS: BP 121/69; PULSE 64; RESP 18; TEMP 36.1; O2SAT 97
[2024-04-14] MEDS: Lactated Ringers 1,000 ML 150 ML IVCONT (01:26)
[2024-04-14 02:31] VITALS: BP 117/63; PULSE 57; RESP 18; TEMP 37; O2SAT 97
[2024-04-14 06:07] LABS: MANUAL DIFF FLAG NO
[2024-04-14] MEDS: metroNIDAZOLE/NS 500 MG/100 ML PIGGYBACK 100 MG IV ×2 (06:12→13:35)
[2024-04-14 06:20] LABS: Basophils Percent Auto 0.3 % (0-2); Eosinophils Absolute Auto 0.6 X10*3/uL (0.0-0.4); Eosinophils Percent Auto 5.8 % (0-4); Hematocrit 32.2 % (37.0-47.0); Hemoglobin 10.9 g/dl (12.0-16.0); Imm Gran Abs Auto 0.12 X10*3/uL (0.00-0.03); Imm Gran Pct Auto 1.1 % (0.0-0.4); Lymphocytes Absolute Auto 2.4 X10*3/uL (1.2-4.9); Lymphocytes Percent Auto 22.2 % (20-40); Mean Corpuscular HGB Conc 33.9 g/dl (31.0-35.0); Mean Corpuscular Hemoglobin 28.5 pg (27.0-33.0); Mean Corpuscular Volume 84.1 fL (80.0-98.0); Mean Platelet Volume 10.2 fL (9.4-12.3); Monocytes Absolute Auto 0.7 X10*3/uL (0.1-1.2); Monocytes Percent Auto 6.6 % (2-11); Neutrophils Absolute Auto 6.8 x10*3/uL (2.0-8.3); Platelet Count 365 X10*3/uL (160-400); Red Blood Count 3.83 X10*6/uL (4.20-5.50); Red Cell Distribution Width 13.7 % (11.0-16.0); White Blood Count 10.6 X10*3/uL (4.8-10.8)
[2024-04-14 06:35] LABS: C Reactive Protein 7.02 mg/dL (< or = 0.50)
[2024-04-14 07:59] VITALS: BP 132/64; PULSE 57; RESP 12; TEMP 36.6; O2SAT 96
[2024-04-14] MEDS: Fondaparinux Sodium 2.5 MG/0.5 ML SYRINGE SUBCUT (09:15)
--- NOTE | 2024-04-14 09:42 | MHC.CLN ---
NUTRITION PATIENT IS CURRENTLY NPO. FOLLOWED BY BARIATRIC SURGERY. PLAN IS FOR NUTRITIONAL SHAKES AND WATER WHEN ABLE. NO TPN. RD AVAILABLE NEEDED.
--- NOTE | 2024-04-14 09:51 | MHC.CM.PN ---
Addendum entered by Nancy Valero 04/14/24 14:16: TEACHING COMPLETE, PT WILL DC TODAY AFTER HER MID-DAY MEDS AND RECEIVE DELIVERY FROM [facility] PRIOR TO HER EVENING DOSE [facility] WILL INITIATE SOC WITH HER TOMORROW FAMILY WILL TRANSPORT Addendum entered by aNncy Valero 04/14/24 13:15: [facility] RN PRESENT FOR TEACH [facility] NOTIFIED OF PLAN TO DC Original Note: CM MET WITH PT TO DISCUSS DC PLANNING SHE IS AWARE THE LINE WILL BE PLACED TODAY AND [facility] RN WILL BE IN FOR TEACHING PT IS ALSO AWARE LONG SHE FEELS COMFORTABLE ADMINISTERING HER EVENING DOSE, SHE WILL BE ABLE TO DC AFTER TEACHING [facility] SERVICES WILL START TOMORROW
--- NOTE | 2024-04-14 12:56 | HO.MIDLINE_ITS ---
Midline Insertion MIDLINE INSERTION Diagnosis: S/P gastric surgery/fever Indication: Group Home antibiotics needed Pertinent Labs: reviewed Technique: Using sterile technique including cap and mask, glove and drape, the right arm was prepped and draped in the usual sterile fashion of full barrier technique with G. Using ultrasound guidance, Right basilic vein access was obtained on first attempt. 20G X 10CM ST Midline was positioned. The procedure was performed in S272. Ultrasound was used to document vein patency and for needle entry. A formal ultrasound picture was recorded. [facility] has released the line for use and it is currently dressed with a StatLock, Tegaderm, and CHG disc. Verification has been performed for blood r eturn and line patency. Arm Circumference: 47.5 CM Equipment: BARD PowerGlide ST Midline catheter Catheter Type: 20G X 10CM non-PASV ST Midline Lot #: [id number]
--- NOTE | 2024-04-14 12:58 | P.F2F_ITS ---
Service Date Service Date: 04/14/24 Encounter Date of encounter: 04/14/24 Reasons for Services Signs and symptoms assessed: needs iv abx Reason for senior care: medication treatment Homebound: Leaving the home is medically contraindicated at this time without the asist of a device and/or another person due th the listed conditions above and below. Reason homebound: other Homebound supporting statement: requirring monoitoring for IV ABx Certification: Based on the above findings, I certify that this patient is confined to the home and needs intermittent senior care care, physical therapy and/or speech th erapy, or continues to need occupational therapy. The patient is under my care, and I have initiated the establishment of the plan of care. The patient will be followed by a physician who will periodically review the plan of care. Time Spent With Patient Time: Total time managing care of this patient today ____ minutes.
--- NOTE | 2024-04-14 12:59 | PM.DS ---
DS: Providers Provider Date of Service: 04/14/24 Date of admission: 04/07/24 20:47 Primary care physician: Robel Rodriguez MD DS: Diagnosis Discharge Diagnosis (1) Fever postop: Status: Acute DS: Summary Hospital Course Hospital Course: 38 yo female s/p laparoscopic revision of previous gastric bypass performed on 04/01/24 (uneventful) d/c home POD 1, returned to hospital with back pain and found to have fever and luekocytosis. Initial imaging w scant collection between remenant and pouch without evidence of leak. Repeat CT with increased accumulation of fluid as well as min pleural effusion but pt was clinically improving by way of normalization of WBC, no fever and subjective improvement. CRP elevated but has since declined steadily. 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 she showed steady improvement. Midline was placed on 04/14/2024. She will follow up in the office on 03/[address] with plans for repeat CT scan with oral contrast only on 04/23/2024. Status at Discharge Functional status at discharge: independent ambulation Time Attestation Total time managing care of this patient today: 25 mintues. Discharge Coordination Time (in mins): 25 Quality: Safe Use of Opioids Does Pt have an Active Cancer Diagnosis on the Problem List?: No Quality: Stroke Does the patient have a stroke diagnosis?: No Physical Exam Vital Signs: Vital Signs: Last Vital Signs Temp 98 F 04/14/24 07:59 Pulse 57 04/14/24 07:59 Resp 12 04/14/24 07:59 BP 132/64 04/14/24 07:59 Pulse Ox 96 04/14/24 07:59 O2 Del Method Room Air 04/14/24 07:59 BMI result Body Mass Index 46.6 Resp: Effort & Inspection: normal respiratory effort Cardio: Rate: regular rate Rhythm: regular rhythm GI: Inspection: Yes incision ( clean, dry, intact.) Extrem: General: No edema DS: Data Data Completed and Pending Completed studies during hospitalization [Text1]: Procedures Excision of Stomach, Percutaneous Endoscopic Approach, Vertical (04/01/24) Release Peritoneum, Percutaneous Endoscopic Approach (04/01/24) Labs on day of discharge: Laboratory Results - last 24 hr 04/14/24 05:48 WBC 10.6 RBC 3.83 L Hgb 10.9 L Hct 32.2 L MCV 84.1 MCH 28.5 MCHC 33.9 RDW 13.7 Plt Count 365 MPV 10.2 Immature Gran % (Auto) 1.1 H Neut % (Auto) 64.0 Lymph % (Auto) 22.2 [place] % (Auto) 6.6 Eos % (Auto) 5.8 H Baso % (Auto) 0.3 Lymph # (Auto) 2.4 [place] # (Auto) 0.7 Eos # (Auto) 0.6 H Baso # (Auto) 0.0 Abs Immat Gran (auto) 0.12 H Absolute Neuts (auto) 6.8 Absolute Nucleated RBC 0.000 Nucleated RBC % (auto) 0.0 C-Reactive Protein 7.02 H Discharge Plan Discharge Anticipated Discharge Date/Time: 04/14/24 13:01 Patient Disposition: Home Health Service Discharge Diagnosis: resolved postop fever Referrals: Robel Rodriguez MD [Primary Care Provider] - 1 Week Discharge Medications: New metronidazole in NaCl (iso-os) 500 mg/100 mL Piggyback 500 mg IV Q8H 10 Days Qty: 2400 0RF fondaparinux 2.5 mg/0.5 mL Syringe 2.5 mg subcut Q24H 14 Days Qty: 7 0RF sodium chloride 0.9 % (flush) [Normal Saline Flush] Syringe 5 ml IVFLUSH QSHIFT 14 Days Qty: 45 0RF levofloxacin in D5W 500 mg/100 mL Piggyback 500 mg IV Q24H 10 Days Qty: 2400 0RF levofloxacin in D5W 250 mg/50 mL Piggyback 250 mg IV Q24H 10 Days Qty: 1200 0RF heparin, porcine (PF) [Heparin LockFlush(Porcine)(PF)] 10 unit/mL Syringe 50 unit IVFLUSH QSHIFT 14 Days Qty: 210 0RF Continued ondansetron 4 mg tablet,disintegrating 4 mg PO Q12H PRN (Reason: nausea and vomiting) acetaminophen 500 mg Tablet 500 mg PO Q6H PRN (Reason: Pain) pantoprazole 40 mg tablet,delayed release (DR/EC) 40 mg PO DAILY Qty: 90 0RF sucralfate 100 mg/mL suspension 10 ml PO BID Qty: 600 2RF Discharge Orders: Discharge Order (Routine); Ordered 04/14/24 Ordered By: Lexx Graff Activity on Discharge: No heavy lifting Stand Alone Forms: Patient Portal Discharge page Print Language: Swedish Care Plan Goals: weight loss and resolution of fever Health Concerns: post op fevers now resolved Plan of Treatment: No tub baths, sex or returning to work until discussed at first post op appointment. No exercise, alcohol, tobacco or illegal drug use. Continue to use incentive spirometer hourly while awake. Walk in home for 5- 10 minutes every 2 hours during the first week. Follow all instructions in the bariatric handbook and call with any questions.Discharge Instructions 1. Please call your doctor or come back to the emergency room should any new symptoms arise. 2. You will receive a courtesy call from [facility] 24-48 hours after discharge. 3. Activity: abstain from alcohol, practice limited stair climbing, no bending, no driving, no exercise, no illicit substances, no lifting, no sex, no tub bath, no work. 4. Diet: continue as discussed with Dr. Dunlap. 5. Dressing Change/Wound Care: Your incision is covered by clear bandages and guaze underneath. If the area is tender, you may apply an ice pack for short intervals (no more than 20 minutes on, followed by at least 20 minutes off). Do not apply heat. Do not use creams, lotions, or topical antibiotics unless instructed to do so by your surgeon. These can cause infection or allergic reaction. 6. Call your doctor if: - Your temperature exceeds 101.5 F - You experience excessive pain or swelling - You have an unexpected reaction to medication - You have excessive bleeding - You experience continued vomiting/nausea - Your incision begins to separate - Your incision shows signs of infection such as increased redness, swelling, excessive pain, heat, or drainage (light blood or clear fluid is normal) 7. General instructions: No lifting greater than 5 lbs for 1 week and not more than 20lbs the next 3?weeks. No driving until seen at the office in 5-7 days after surgery. If you do not move your bowels in the next 2 days, please tell?Dr. Dunlap. Please walk around your home every hour or two to prevent blood clots from forming in your legs. You do not need to wake from sleeping to walk. Please sleep in a bed or couch to prevent kinking at the hips and knees. Please take your incentive spirometer (your lung profiling machine operator) home with you and use it for the next few days to prevent pneumonia. You may shower, no hot tubs, baths or swimming pools.?Please follow the post op diet instructions you are?given by Dr Dunlap? and text me daily at 5-6pm for an update.?If you have any issues or concerns or questions please communicate this to him via text.? The Celebrate shakes have all of the bariatric vitamins you need if you consume these shakes. If you are drinking other protein shakes, you will need to purchase the Celebrate multivitamins and calcium that are available in the hospital gift shop on the first floor of the main hospital.??Do not take anything without first discussing with Dr Dunlap. Please make sure you are consuming at least 40 ounces of fluids per day starting the?day AFTER your discharge from the hospital. Always drink 1-2 ml per minute using the 5ml?syringe. If you drink faster you may experience?bloating,?gas pain, burping, nausea or heartburn. In that case please slow down your pace and use the syringe to?understand better the?proper?pace and volume of drinking. Do not hesitate to contact the office with any questions at . The patient's medical history has been reviewed and they are considered low risk for post op DVT and therefore DVT prophylaxis is not considered necessary. Travel after surgery was reviewed. The patient has not disclosed any travel plans during the first 30 days after surgery and they have been advised that within the first 30 days after surgery any bus, plane, train or car travel over 2 hours in duration is contraindicated due to the possibility of developing blood clots from immobility. Any travel, needs to include periods of ambulation of 10 minutes in duration every 2 hours.? The patient was instructed to discuss any plans for travel during this period with their bariatric surgeon. Assessment: stable to go home on IV ABX w home vna
[2024-04-14] MEDS: levoFLOXacin/D5W 500 MG/100 ML PIGGYBACK 100 MG IV (13:52)
== END 2024-04-14 15:08 | disposition home health service (06) | DRG 252 ==
LOC: HO.ED 20:47 → HO.EDOVER 21:14 → HO.S3 04-08 07:28
PROVIDERS: Emergency Medicine; Physician Assistant; Physician Assistant Surgical; Admitting Provider Surgery; Emergency Provider Emergency Medicine; PCP Internal Medicine; Visit Provider Surgery
DX: K95.81 Infection due to other bariatric procedure (principal); D73.5 Infarction of spleen; Z20.822 Contact with and (suspected) exposure to COVID-19; Z79.899 Other long term (current) drug therapy
CPT/HCPCS: 0241U; 36410; 36415; 71260; 71275; 74160; 74176; 74177; 74240; 80053; 81001; 83605; 83735; 83880; 84484; 84702; 85025; 85652; 86140; 87040; 93005; 99285; C1751; J0131; J0696; J1652; J1836; J1956; J2405; J2470; J3411; J3420; J7120; Q9967

== ENCOUNTER → 2024-04-07 15:27 | Outpatient (BNV) | payer OTHER, SELFPAY | PROVIDERS: Admitting Provider Surgery; Emergency Provider Emergency Medicine; PCP Internal Medicine; Visit Provider Internal Medicine Cardiovascular Disease | DX: R00.0 Tachycardia, unspecified (principal); R94.31 Abnormal electrocardiogram [ECG] [EKG] | CPT/HCPCS: 93010 ==

== ENCOUNTER → 2024-04-07 15:45 | Outpatient (BNV) | payer OTHER, SELFPAY | PROVIDERS: Emergency Provider Emergency Medicine; PCP Internal Medicine; Visit Provider Surgery | DX: R53.83 Other fatigue (principal); D72.825 Bandemia | CPT/HCPCS: 99024; G0180 ==

== ENCOUNTER 2024-04-07 20:47 | Outpatient (BNV) | payer OTHER, SELFPAY | END 2024-04-09 08:00 | PROVIDERS: Admitting Provider Surgery; Emergency Provider Emergency Medicine; PCP Internal Medicine; Visit Provider Radiology Diagnostic Radiology | DX: Z98.84 Bariatric surgery status (principal) | CPT/HCPCS: 74246 ==

== ENCOUNTER 2024-04-23 13:05 | Outpatient (REF) | payer OTHER, SELFPAY ==
--- NOTE | ~2024-04-23 | XR_ITS ---
EXAMINATION: XR CHEST CLINICAL INFORMATION: Fever COMPARISON: 08/07/2023 TECHNIQUE: 2 views of the chest were obtained. FINDINGS: No significant abnormality is noted involving the heart, lungs, mediastinum, bony thorax or soft tissues. XR/XR chest 2V IMPRESSION: Unremarkable examination, without interval change.
[2024-04-23 13:32] LABS: MANUAL DIFF FLAG NO
[2024-04-23 14:00] LABS: Basophils Percent Auto 0.2 % (0-2); Eosinophils Absolute Auto 0.3 X10*3/uL (0.0-0.4); Eosinophils Percent Auto 3.6 % (0-4); Hematocrit 37.6 % (37.0-47.0); Hemoglobin 12.3 g/dl (12.0-16.0); Imm Gran Abs Auto 0.03 X10*3/uL (0.00-0.03); Imm Gran Pct Auto 0.3 % (0.0-0.4); Lymphocytes Absolute Auto 1.3 X10*3/uL (1.2-4.9); Lymphocytes Percent Auto 14.8 % (20-40); Mean Corpuscular HGB Conc 32.7 g/dl (31.0-35.0); Mean Corpuscular Hemoglobin 27.8 pg (27.0-33.0); Mean Corpuscular Volume 85.1 fL (80.0-98.0); Mean Platelet Volume 10.7 fL (9.4-12.3); Monocytes Absolute Auto 0.6 X10*3/uL (0.1-1.2); Neutrophils Absolute Auto 6.6 x10*3/uL (2.0-8.3); Neutrophils Percent Auto 74.1 % (45-73); Platelet Count 439 X10*3/uL (160-400); Red Blood Count 4.42 X10*6/uL (4.20-5.50); Red Cell Distribution Width 14.4 % (11.0-16.0)
[2024-04-23 15:32] LABS: Alanine Aminotransferase 12 U/L (0-31); Albumin Level 3.9 g/dL (3.5-5.0); Alkaline Phosphatase 84 U/L (39-117); Anion Gap 11 (12-20); Aspartate Amino Transferase 16 U/L (5-31); Bilirubin Total 0.3 mg/dL (0.0-1.0); Blood Urea Nitrogen 11 mg/dL (9-16); Calcium 9.5 mg/dL (8.4-10.2); Carbon Dioxide 26 mmol/L (22-29); Chloride 106 mmol/L (96-108); Estimated Glomerular Filt Rate > 60; Glucose Random 79 mg/dL (60-115); Potassium 4.4 mmol/L (3.3-5.1); Sodium 139 mmol/L (135-145); Total Protein 8.2 g/dL (6.5-8.0)
== END 2024-04-23 13:06 | disposition home or self-care (01) ==
LOC: HO.XRAY 13:05
PROVIDERS: Visit Provider Physician Assistant Surgical
DX: D73.9 Disease of spleen, unspecified (principal); R50.82 Postprocedural fever; Z98.84 Bariatric surgery status; Z18.9 Retained foreign body fragments, unspecified material
CPT/HCPCS: 36415; 71046; 80053; 85025

== ENCOUNTER 2024-04-23 14:36 | Outpatient (REF) | payer OTHER, SELFPAY | END 2024-04-23 14:37 | disposition home or self-care (01) | LOC: HO.LAB 14:36 | PROVIDERS: Visit Provider Physician Assistant Surgical | DX: Z13.89 Encounter for screening for other disorder (principal) ==

== ENCOUNTER 2024-05-02 14:19 | Outpatient (AMB) | payer OTHER, SELFPAY ==
--- NOTE | 2024-05-02 14:21 | MHC.OFFVISWM ---
VS Expanded 05/02/24 14:33 BP 111/70 Blood Pressure Location Lt brachial Blood Pressure Position Sitting Pulse 78 Pulse Source Pulse Oximeter Temp 97 F Temperature Source Temporal Artery Scan Pulse Oximetry 98 Height 5 ft 2 in Weight 239 lb 9.6 oz BMI 43.8 Body Fat % 43.5 Body Fat Mass 104 Fat Free Mass 135.4 Visceral Fat Rating 13 Body Water % 40.5 Body Water Mass 97 Muscle Mass/Score 128.6 Basal Metabolic Rate/Score 1,903 Intake Visit Reasons: OV Post op Allergies No Known Allergies Allergy (Verified 05/02/24 14:42) Medication List - Last Reconciled 05/02/24 by Gerry Rockwell RN acetaminophen 500 mg PO Q6H PRN amoxicillin 500 mg PO TID fondaparinux 2.5 mg (0.5 mL) subcut Q24H 14 days ondansetron 4 mg PO Q12H PRN pantoprazole 40 mg PO DAILY sucralfate 10 mL PO BID HPI Comments Details: 38 yo female s/p laparoscopic revision of previous gastric bypass performed on 04/01/24 (uneventful) d/c home POD 1, returned to hospital 04/07/24 with back pain and found to have fever and luekocytosis. Initial imaging w scant collection between remenant and pouch without evidence of leak. Repeat CT with increased accumulation of fluid as well as min pleural effusion but pt was clinically improving by way of normalization of WBC, no fever and subjective improvement. CRP elevated but has since declined steadily. 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 She showed steady improvement. Midline was placed on 04/14/2024 and she was discharged home on IV Levofloxacin. She left the area against medical advice, she missed her appointment on 04/18/24 in the office and called on 04/23/2024 stating that she had returned to the area. She states that the midline fell out the day prior. She was instructed to immediately come to the hospital for chest x-ray to rule out retained foreign body and for lab work. X-ray was negative and lab work was unrevealing. Later that evening she had a syncopal episode and presented to [facility] in septic shock with leukocytosis, hypotension, tachycardia. She was found to be COVID positive, she had bacteremia which proved to be streptococcal. She additionally was found to have a superficial thrombophlebitis of her right arm. She was initially given IV vancomycin and Zosyn, ultimately transitioning to oral amoxicillin once discharged. She was also placed on Arixtra. She did spend several days in the ICU. She was at [facility] from 04/23/2024 through 04/30/2024. Since being discharged from [facility] on 04/30/2024, she states that she continues the oral outpatient amoxicillin and subcutaneous Arixtra. She reports that overall she is feeling much better although still trying to regain her strength. Meal plan: Celebrate 4 in 1 2 scoops each 8-10, 11-1 premier protein 1/2 scoop 2-4 celebrate bar 5-8 Drinking 48 oz water Exercise plan: walking outside a little bit [facility] Medical History Esophagitis determined by biopsy Hypoglycemia after GI (gastrointestinal) surgery Morbid obesity Pre-op evaluation Hiatal hernia GERD (gastroesophageal reflux disease) Morbid obesity Surgical History S/P laparoscopic sleeve gastrectomy History of esophagogastroduodenoscopy (EGD) (10/17/23) H/O partial nephrectomy H/O tubal ligation History of cholecystectomy Gastric bypass status for obesity Family History Mother Kidney failure Diabetes Hypertension Congestive heart failure Father Brain aneurysm AIDS Son Diabetes Son Asthma Daughter No problems noted. Social History Household Members: Spouse and Children Housing: House Are you a primary insurance healthcare consultant to a significant other at home: Yes (mother- to assist post-op) Do you presently have visiting nurse or other home services: No 75 years or older and lives alone: No Alcohol intake: never Patient Tobacco Use Status: Never used Tobacco service: No Current occupational status: employed Current occupation: [employer] Medical Physical Exam Const General: healthy appearing and no acute distress Resp Effort & Inspection: normal respiratory effort Auscultation: clear to auscultation bilaterally Cardio Rate: regular rate Rhythm: regular rhythm GI Auscultation: normal bowel sounds Extrem General: Yes normal to inspection Assessment & Plan Assessment & Plan (1) S/P laparoscopic sleeve gastrectomy: Comment: revision of gastric pouch 04/01/24 Code(s): Z98.84 - Bariatric surgery status Category: Surgical Plan: Patient will continue her current meal plan as directed by Dr. Dunlap. We will have her return to the office in approximately 3 weeks. I have encouraged her to increase her exercise tolerance as she is able on a daily basis. Continue outpatient oral antibiotics and anticoagulant as recommended by [facility].
[2024-05-02 14:33] VITALS: BP 111/70; PULSE 78; TEMP 36.1; O2SAT 98; BMI 43.8
== END 2024-05-02 14:45 | disposition home or self-care (01) ==
PROVIDERS: PCP Internal Medicine; Visit Provider Physician Assistant Surgical
DX: Z98.84 Bariatric surgery status (principal)
CPT/HCPCS: 99024

== ENCOUNTER → 2024-05-02 14:19 | Outpatient (BNVA) | payer OTHER, SELFPAY | PROVIDERS: PCP Internal Medicine; Visit Provider Physician Assistant Surgical | DX: Z48.815 Encounter for surgical aftercare following surgery on the digestive system (principal); Z98.84 Bariatric surgery status | CPT/HCPCS: 99212 ==

== ENCOUNTER 2024-05-19 11:44 | Outpatient (AMB) | payer OTHER, SELFPAY ==
--- NOTE | 2024-05-19 10:05 | A.OFFVIS_ITS ---
VS Expanded 05/19/24 10:07 Height 5 ft 2 in Weight 245 lb 2 oz BMI 44.8 Body Fat % 45 Body Fat Mass 110.3 Fat Free Mass 134.9 Visceral Fat Rating 18.5 Body Water % 41.1 Body Water Mass 100.7 Muscle Mass/Score 126.1 Basal Metabolic Rate/Score 1,765 Intake Visit Reasons: (tv) PO Revision GBP to LSG 04/01/24 Business Risk Analyst Required: No Allergies No Known Allergies Allergy (Verified 05/02/24 14:42) Medication List - Last Reconciled 05/19/24 by CHARMAINE Hamilton acetaminophen 500 mg PO Q6H PRN pantoprazole 40 mg PO DAILY sucralfate 10 mL PO BID HPI Comments Details: 38 yo female s/p laparoscopic revision of previous gastric bypass performed on 04/01/24 (uneventful) d/c home POD 1, returned to hospital 04/07/24 with back pain and found to have fever and luekocytosis. Initial imaging w scant collection between remenant and pouch without evidence of leak. Repeat CT with increased accumulation of fluid as well as min pleural effusion but pt was clinically improving by way of normalization of WBC, no fever and subjective improvement. CRP elevated but has since declined steadily. 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 She showed steady improvement. Midline was placed on 04/14/2024 and she was discharged home on IV Levofloxacin. She left the area against medical advice, she missed her appointment on 04/18/24 in the office and called on 04/23/2024 stating that she had returned to the area. She states that the midline fell out the day prior. She was instructed to immediately come to the hospital for chest x-ray to rule out retained foreign body and for lab work. X-ray was negative and lab work was unrevealing. Later that evening she had a syncopal episode and presented to [facility] in septic shock with leukocytosis, hypotension, tachycardia. She was found to be COVID positive, she had bacteremia which proved to be streptococcal. She additionally was found to have a superficial thrombophlebitis of her right arm. She was initially given IV vancomycin and Zosyn, ultimately transitioning to oral amoxicillin once discharged. She was also placed on Arixtra. She did spend several days in the ICU. She was at [facility] from 04/23/2024 through 04/30/2024. Since being discharged from [facility] on 04/30/2024, she states that she continues the oral outpatient amoxicillin and subcutaneous Arixtra. She presents today for 6 week post op visit. Weight today is 245.2 pounds, with a BMI of 44.8. There has been a 42.6 pound weight loss,(initial weight 287.8 pounds) since starting the program on 08/02/2023 reflecting a 14.8 % total body weight loss and a weight loss of 11.8 pounds since surgery (operative weight 257 pounds) reflecting a 4.5 % TBWL since surgery. No complaints of nausea, emesis, abdominal pain or reflux. Reports she is feeling well, energy imrpoved. Has not started gym yet. Saw PCP last week and was told not to overwork. She is walking without much trouble. [facility] hematology referral for duration of blood thinners. Urology for her hx of renal ca. Endocrinology for adrenal insufficiency. Ordered new scale ans is scheduled to arrive Sunday Present meal plan includes: Meal plan: Celebrate 4 in 1 2 scoops each 8-10, 11-1 premier protein 1/2 scoop 2-4 celebrate bar 5-8 Drinking 48 oz water Exercise plan: walking outside 2.5 miles daily 5 days per week plans to return to the gym June. [facility] Medical History Esophagitis determined by biopsy Hypoglycemia after GI (gastrointestinal) surgery Morbid obesity Pre-op evaluation Hiatal hernia GERD (gastroesophageal reflux disease) Morbid obesity Surgical History S/P laparoscopic sleeve gastrectomy History of esophagogastroduodenoscopy (EGD) (10/17/23) H/O partial nephrectomy H/O tubal ligation History of cholecystectomy Gastric bypass status for obesity Family History Mother Kidney failure Diabetes Hypertension Congestive heart failure Father Brain aneurysm AIDS Son Diabetes Son Asthma Daughter No problems noted. Social History Household Members: Spouse and Children Housing: House Are you a primary children's zoo caretaker to a significant other at home: Yes (mother- to assist post-op) Do you presently have visiting nurse or other home services: No 75 years or older and lives alone: No Alcohol intake: never Patient Tobacco Use Status: Never used Tobacco service: No Current occupational status: employed Current occupation: [employer] Telehealth Telehealth Platform: Telephone Location of provider rendering services: practice address Location of patient: address on file Patient Identification confirmed using: Name, : Yes Telehealth method: voice only Patient verbally consented to treatment: Yes Patient verbally consented to billing insurance company: Yes Patient informed of any privacy concerns related to visit: Yes Minutes spent on Phone/Video with Pt.: 15 Assessment & Plan Assessment & Plan (1) S/P laparoscopic sleeve gastrectomy: Comment: revision of gastric pouch 04/01/24 Code(s): Z98.84 - Bariatric surgery status Category: Surgical Plan: Overall, patient is having a slow recovery from her significant illness including COVID and sepsis. She is improving though and is walking about 2.5 miles per day. She will continue to do so. Her meal plan as balance. We will have her return to the office in approximately 1 month. She is scheduled to follow up with multiple specialists in the near future including Hematology, Urology and endocrine. Encouraged to text with any questions or concerns. As well text weekly with her weight. Encouraged to return to the gym, even doing some light exercise as she is able to mix up her exercise routine from just walking.
[2024-05-19 10:07] VITALS: BMI 44.8
== END 2024-05-19 12:06 | disposition home or self-care (01) ==
LOC: HO.HBS 11:44
PROVIDERS: PCP Internal Medicine; Visit Provider Physician Assistant Surgical
DX: Z98.84 Bariatric surgery status (principal)
CPT/HCPCS: 99024

== ENCOUNTER → 2024-05-19 11:44 | Outpatient (BNVA) | payer OTHER, SELFPAY | PROVIDERS: PCP Internal Medicine; Visit Provider Physician Assistant Surgical | DX: Z48.815 Encounter for surgical aftercare following surgery on the digestive system (principal); Z98.84 Bariatric surgery status | CPT/HCPCS: 99212 ==

== ENCOUNTER 2024-06-30 09:00 | Outpatient (AMB) | payer OTHER, SELFPAY ==
--- NOTE | 2024-06-30 08:50 | MHC.OFFVISWM ---
VS Expanded 06/30/24 09:08 Height 5 ft 2 in Weight 240 lb 9 oz BMI 44.0 Intake Visit Reasons: (tv) PO Revision GBP to LSG 04/01/24 Dermatologist Required: No Allergies No Known Allergies Allergy (Verified 05/02/24 14:42) Medication List - Last Reconciled 06/30/24 by CHARMAINE Hamilton acetaminophen 500 mg PO Q6H PRN HPI Comments Details: 38 yo female s/p laparoscopic revision of previous gastric bypass performed on 04/01/24 (uneventful) d/c home POD 1, returned to hospital 04/07/24 with back pain and found to have fever and luekocytosis. Initial imaging w scant collection between remenant and pouch without evidence of leak. Repeat CT with increased accumulation of fluid as well as min pleural effusion but pt was clinically improving by way of normalization of WBC, no fever and subjective improvement. CRP elevated but has since declined steadily. 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 She showed steady improvement. Midline was placed on 04/14/2024 and she was discharged home on IV Levofloxacin. She left the area against medical advice, she missed her appointment on 04/18/24 in the office and called on 04/23/2024 stating that she had returned to the area. She states that the midline fell out the day prior. She was instructed to immediately come to the hospital for chest x-ray to rule out retained foreign body and for lab work. X-ray was negative and lab work was unrevealing. Later that evening she had a syncopal episode and presented to [facility] in septic shock with leukocytosis, hypotension, tachycardia. She was found to be COVID positive, she had bacteremia which proved to be streptococcal. She additionally was found to have a superficial thrombophlebitis of her right arm. She was initially given IV vancomycin and Zosyn, ultimately transitioning to oral amoxicillin once discharged. She was also placed on Arixtra. She did spend several days in the ICU. She was at [facility] from 04/23/2024 through 04/30/2024. She presents today for 3 month post op visit. Weight today is 240.9 pounds, with a BMI of 44.3. There has been a 46.9 pound weight loss,(initial weight 287.8 pounds) since starting the program on 08/02/2023 reflecting a 16.2 % total body weight loss and a weight loss of 16.1 pounds since surgery (operative weight 257 pounds) reflecting a 6.2 % TBWL since surgery. No complaints of nausea, emesis, abdominal pain or reflux. Reports she is feeling well, energy imrpoved. Has not started gym yet. Saw PCP last week and was told not to overwork. She is walking without much trouble. [facility] hematology referral for duration of blood thinners. Urology for her hx of renal ca. Endocrinology for adrenal insufficiency. She states that since last being seen, she is still trying to get her energy back, her mom is awaiting kidney transplant and she is spending 6 hrs per day at the hospital with her mom. Present meal plan includes: Meal plan: HB egg in am Celebrate 4 in 1 2 scoops each 8-10, 11-1 premier protein 1/2 scoop 2-4 celebrate bar 5-8 Drinking 48 oz water Exercise plan: walking outside 2.5 miles daily 5 days per week has not returned to the gym [facility] Medical History Esophagitis determined by biopsy Hypoglycemia after GI (gastrointestinal) surgery Morbid obesity Pre-op evaluation Hiatal hernia GERD (gastroesophageal reflux disease) Morbid obesity Surgical History S/P laparoscopic sleeve gastrectomy History of esophagogastroduodenoscopy (EGD) (10/17/23) H/O partial nephrectomy H/O tubal ligation History of cholecystectomy Gastric bypass status for obesity Family History Mother Kidney failure Diabetes Hypertension Congestive heart failure Father Brain aneurysm AIDS Son Diabetes Son Asthma Daughter No problems noted. Social History Household Members: Spouse and Children Housing: House Are you a primary director of career resources to a significant other at home: Yes (mother- to assist post-op) Do you presently have visiting nurse or other home services: No 75 years or older and lives alone: No Alcohol intake: never Patient Tobacco Use Status: Never used Tobacco service: No Current occupational status: employed Current occupation: [employer] Telehealth Telehealth Platform: Telephone Location of provider rendering services: practice address Location of patient: other Patient Identification confirmed using: Name, : Yes Telehealth method: voice only Patient verbally consented to treatment: Yes Patient verbally consented to billing insurance company: Yes Patient informed of any privacy concerns related to visit: Yes Minutes spent on Phone/Video with Pt.: 15 Assessment & Plan Assessment & Plan (1) S/P laparoscopic sleeve gastrectomy: Comment: revision of gastric pouch 04/01/24 Code(s): Z98.84 - Bariatric surgery status Category: Surgical Plan: Patient reports following meal plan although weight loss has significantly slowed, this appears to be due to decreased exercise given multiple ongoing medical issues with her family. She also wants to change her meal plan to incorporate food. Celebrate 4 in 1 shakes, x2 with 2 scoops each Celebrate protein bar Meal 4 forks protein, 4 forks cooked vegetables Encouraged to utilize [employer] dilcia when she is walking at her son's football game to track time, distance, calories. Goal is 300 calories burned per day or 2000 calories per week. Additionally discussed going to the gym at least 1 day per week. We will have her return to the office in 1 month. Encouraged to send weight is weekly and with any questions or concerns.
[2024-06-30 09:08] VITALS: BMI 44.0
== END 2024-06-30 09:20 | disposition home or self-care (01) ==
LOC: HO.HBS 09:13
PROVIDERS: PCP Internal Medicine; Visit Provider Physician Assistant Surgical
DX: Z98.84 Bariatric surgery status (principal)
CPT/HCPCS: 99024

== ENCOUNTER → 2024-06-30 09:00 | Outpatient (BNVA) | payer OTHER, SELFPAY | PROVIDERS: PCP Internal Medicine; Visit Provider Physician Assistant Surgical | DX: E66.9 Obesity, unspecified (principal); Z68.41 Body mass index [BMI] 40.0-44.9, adult; Z98.84 Bariatric surgery status; Z90.3 Acquired absence of stomach [part of] | CPT/HCPCS: 99212 ==